=== PATIENT | female | born 1940 | race Caucasian/White ===

== ENCOUNTER 2019-12-27 08:17 | Outpatient (CLI) | payer MEDICARE, SELFPAY ==
[2019-12-27 08:52] LABS: Basophils Percent Auto 0.8 % (0.2-1.2); Eosinophils Absolute Auto 0.1 K/mm3 (0-0.3); Eosinophils Percent Auto 1.5 % (0-4.4); Hematocrit 35.3 % (37.0-47.0); Hemoglobin 11.7 g/dL (12.0-15.0); Immature Granulocyte Absolute 0.01 K/mm3 (0.00-0.031); Immature Granulocyte Percent A 0.3 % (0-0.5); Lymphocytes Percent Auto 35.6 % (18.3-44.2); Mean Corpuscular HGB Conc 33.1 g/dl (32-36); Mean Corpuscular Volume 93.4 fl (80-100); Mean Platelet Volume 9.6 fl (7.4-10.4); Monocytes Absolute Auto 0.2 K/mm3 (0.1-0.6); Monocytes Percent Auto 6.1 % (2.6-8.5); Neutrophils Absolute Auto 2.2 K/mm3 (1.3-6.7); Neutrophils Percent Auto 55.7 % (45.5-73.1); Platelet Count Result 153 k/mm3 (150-375); Red Blood Count 3.78 M/mm3 (4.2-5.4); Red Cell Distribution Width 12.7 % (11.5-14.5); White Blood Count 3.9 K/mm3 (4.5-10.0)
[2019-12-27 09:01] LABS: Hemoglobin A1C 5.3 % (<5.7)
[2019-12-27 09:08] LABS: Blood Urea Nitrogen 13 mg/dL (7-17); Calcium 9.6 mg/dL (8.4-10.2); Carbon Dioxide 30 mmol/L (22-30); Chloride 102 mmol/L (98-107); Cholesterol 188 mg/dL (0-200); Estimated Glomerular Filt Rate > 60; Glucose 94 mg/dL (65-105); HDL Direct 78 mg/dL; Potassium 3.8 mmol/L (3.4-5.0); Sodium 139 mmol/L (137-145); Triglycerides 94 mg/dL (<150)
[2019-12-27 09:19] LABS: LDL Cholesterol Direct 73 mg/dL
[2019-12-27 09:32] LABS: Free T4 Free Thyroxine 1.21 ng/mL (0.78-2.19)
[2019-12-29 22:49] LABS: Homocysteine 9.7 umol/L (<10.4)
== END 2019-12-27 08:18 | disposition home or self-care (01) ==
PROVIDERS: PCP Internal Medicine; Visit Provider Internal Medicine
DX: I10 Essential (primary) hypertension (principal); E03.9 Hypothyroidism, unspecified; Z79.899 Other long term (current) drug therapy
CPT/HCPCS: 36415; 80048; 80061; 82542; 83036; 83090; 84439; 84443; 85025

== ENCOUNTER 2020-02-11 14:08 | Outpatient (CLI) | payer MEDICARE, SELFPAY ==
--- NOTE | ~2020-02-11 | XR_ITS ---
EXAMINATION: XR lumbar spine 2-3V, XR sacroiliac joints min 3V DATE: 02/11/2020 14:41 INDICATION: Left hip pain TECHNIQUE: 1. Anteroposterior and lateral views of the lumbar spine, and cone-down lateral view of the lumbosacr al junction were obtained. 2. AP and left and right oblique views of the sacral iliac joints were obtained. COMPARISON: None. FINDINGS: Lumbar spine: Hypoplastic right-sided riblet at L1. 4 more caudal nonrib-bearing lumbar segments L2-L5. 1-2 mm ante rolisthesis L3 on L4. Vertebral body heights are normal. Mild disc height loss at T12-L1, L1-L2, L3-L 4 and L4-L5. The L5-S1 disc space appears severely narrowed with poorly profiled endplates, possibly fused. Lower lumbar facet osteoarthritis moderate on the right and moderate to severe on the left at L3-L4 and L4-L5. Lung bases are clear. No pleural effusion. Sacroiliac joints: Sacral arches are intact. Bilateral sacroiliac joint spaces are normal with no erosions or subarticul ar sclerosis. Bilateral hip joint spaces are also relatively preserved. Phlebolith in the right hemip khushboo. IMPRESSION: 1. Moderate lumbar spondylosis. 2. Normal bilateral hip and sacroiliac joints. Reviewed, dictated and finalized at location A. IMPRESSION: 1. Moderate lumbar spondylosis. 2. Normal bilateral hip and sacroiliac joints.
== END 2020-02-11 14:09 | disposition home or self-care (01) ==
PROVIDERS: PCP Internal Medicine; Visit Provider Internal Medicine
DX: M47.816 Spondylosis without myelopathy or radiculopathy, lumbar region (principal)
CPT/HCPCS: 72100; 72202

== ENCOUNTER 2020-03-12 11:00 | Outpatient (RCR) | payer MEDICARE, SELFPAY ==
--- NOTE | 2020-02-19 11:34 | PTOPEVAL ---
PHYSICAL THERAPY EVALUATION AND PLAN OF CARE 02-19-2020 The PT evaluation was completed and the plan of treatment is scheduled for 2x/week for 3 weeks. Thank you for referring Jessica Steele to [facility]. Please review, sign, date and return this plan of care [facility]. I agree with and certify that the following plan of care is medically necessary. Referring Physician Date Attending Provider: Emre Garrido MD *PT Outpatient Evaluation Start: 02/19/20 10:39 Document 02/19/20 10:30 HUE (Rec: 02/19/20 11:34 HUE [email or web address]) Outpatient Past Medical History Past Medical History Source of Past Medical History Patient Neurological History Hx Neurological Disorders No Significant History Cardiovascular History Hx Hypertension Yes: meds Respiratory History Hx Respiratory Disorders No Significant History Gastrointestinal History Hx Gastroesophageal Reflux Disease Yes: meds Genitourinary History Hx Genitourinary Disorders No Significant History Musculoskeletal History Hx Arthritis Yes: L knee OA-to see Dr Quinonez in February Hx Back Pain Yes Hx Orthopedic Surgery Yes: L knee arthroscopy Hematological History Hx Hematological Disorders No Significant History Endocrine History Hx Hypothyroidism Yes: meds Hx Systemic Lupus Erythematosus Yes: in remission Reproductive History Hx Hysterectomy Yes Evaluation Information Problem Diagnosis back pain, L hip pain, sacroliliac pain Onset January 05, 2020 Subjective Information increase in pain after Query Text:As Reported By Patient/ increased yard work; sit on Family cushion and scooting along; went to move and onset pain L low back, then OK few days, then L hip started hurting; took steroid pack-- decreased pain but then returned; had spinal injections and lots of therapy at about 42 yr old ; back pain resolved, but always cautious and try not to over do it; Diagnostic Tests X-Rays For This Problem Yes: disc height lumbar spine; moderate-severe OA Prior Level of Function Activity Level (Last 3 Months) 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
--- NOTE | 2020-03-12 11:34 | PTOPEVAL ---
PHYSICAL THERAPY DISCHARGE 03-12-2020 Mrs. Steele has received 7 PT sessions, from February 18 to today, for the diagnosis of L hip and sacralilitis. She has improved with: increased trunk and hip strength; standing posture; pain rating at worst from 5 to 1/10; Oswestry self assessment from 22% to 10% limitation; flexibility of L ant hip/quad, with prone knee flexion from 110' to 130'; education for posture and home exercises. Jessica is motivated and is to continue with the theraband resisted exercises and sitting ball exercises. The goals were achieved, therefore she will be discharged from PT services. Thank you for referring Jessica Steele to [facility]. Please review, sign, date and return this discharge [facility]. I agree with and certify that the following plan of care is medically necessary. Referring Physician Date Attending Provider: Emre Garrido MD *PT Outpatient Discharge Document 03/12/20 10:57 HUE (Rec: 03/12/20 11:25 HUE [email or web address]) Subjective Information Jessica reports: back is better Query Text:As Reported By Patient/ ; am stronger in core and hips Family ; have balance ball at home and doing band exercises; agree to discharge from PT; Oswestry self assessment functional score 10% limitation; Pain Assessment Timing of Pain Assessment Timing of Pain Assessment Assessment Pain Scale Pain Scale Used Numeric (1 - 10) Self Report Pain Assessment Bilateral Back Reported Pain Level 0 Pain Frequency Chronic Other Pain Description uncomfortable&problems getting comfortable to sleep-back, knee,overall hurt Lowest Pain Intensity 0 Greatest Pain Intensity 1 Additional Pain Comments continue to have L knee pain; called dr and going to have knee replacement Pain Score Pain Score 0: Self Report Lower Extremity Range of Motion General Lower Extremity Range of Motion Gross Lower Extremity Range of Motion anterior hip/quad length with Comments prone knee flexion L 130'; Lower Extremity Muscle Strength Testing General Lower Extremity Strength Gross Lower Extremity Strength good stability of trunk with ball exercises: sitting, prone positions, 15- 20 reps each; reviewed HEP; issued green theraband for progression of HEP; Posture Posture Standing Position Posture Evaluation View Posterior Head/C-Spine Posture Forward Head Thoracic Spine Posture Increased Kyphosis Lumbar Spine Posture Flattened Shoulder Posture
== END 2020-03-13 15:11 | disposition home or self-care (01) ==
LOC: ANHPT 11:00
PROVIDERS: PCP Internal Medicine; Visit Provider Internal Medicine
DX: M25.552 Pain in left hip (principal); M46.1 Sacroiliitis, not elsewhere classified
CPT/HCPCS: 97110; 97140; 97161

== ENCOUNTER 2020-03-30 12:22 | Outpatient (CLI) | payer MEDICARE, SELFPAY ==
--- NOTE | ~2020-03-30 | MR_ITS ---
EXAMINATION: MR knee LT wo con DATE: 03/30/2020 13:35 INDICATION: Left knee pain TECHNIQUE: Magnetic resonance imaging (MRI) of the left knee was performed without intravenous contra st. Sequences included coronal PD-weighted FSE, coronal PD-weighted FS FSE, sagittal T2-weighted FSE , sagittal PD-weighted FS FSE and axial PD weighted fat saturated FSE. COMPARISON: Left knee radiographs dated 03/04/2020 FINDINGS: Medial compartment: There is a longitudinal horizontal tear extending to the cephalad articular surface at the small and mildly extruded medial meniscal body. There is a 14 x 7 x 7 mm pyramidal heterotopic ossification rep lacing the meniscal tissue at the lateral side of the small posterior horn which may reflect changes of prior partial meniscectomy. There is extensive cartilage loss which appears full/near full-thickn ess lung much of the anterior two thirds of the medial tibial plateau as well as significant portions of the weightbearing medial femoral condyle. There is scattered mild irregularity to the articular c ortex as well as mild subarticular edema with developing mild subarticular cystic change at the centr al weightbearing medial femoral condyle and anterior aspect of the medial tibial plateau. Moderate si ze marginal osteophytes are present. Lateral compartment: Lateral meniscus is normal. Is partial thickness chondral ulceration and fissuring along the medial s marcelino of the lateral tibial plateau along the shoulder the intercondylar eminence as well as along port ions of the weightbearing lateral femoral condyle. Small marginal osteophytes are present. Patellofemoral compartment: Tarsal thickness chondral ulceration with small central subchondral osteophytes at the cephalad half of the medial trochlea and trochlear groove. Mild partial thickness cartilage loss with chondral surf sun irregularity at the medial patellar facet and apical ridge. Small marginal osteophytes are presen t. Ligaments and tendons: Anterior and posterior cruciate ligaments are normal. The medial collateral ligament and fibular gopi ateral ligament complex are normal. The extensor mechanism is normal. The visualized medial and later al hamstring tendons as well as the iliotibial band are normal. Fluid: Moderate-sized knee joint effusion. There is scattered synovitis at the suprapatellar pouch. Small mu ltiloculated para meniscal cyst along the periphery of the anterior horn of the medial meniscus. No l oose osteochondral bodies identified. Osseous/other: Bone alignment is normal. No fracture or pathologic marrow replacing process. IMPRESSION: 1. Small body and posterior horn of the medial meniscus suggesting prior partial meniscectomy with re sidual longitudinal horizontal tear plane at the medial meniscal body and with heterotopic ossificati on replacing pacing a significant portion of the meniscal tissue at the lateral side of the posterior horn. 2. Tricompartmental osteoarthritis, severe with extensive high-grade chondromalacia in the medial com partment and mild with moderate grade chondromalacia in the lateral compartment and with moderate to high-grade chondromalacia in the patellofemoral compartment. 3. Moderate-sized knee joint effusion. Reviewed, dictated and finalized at location A. IMPRESSION: 1. Small body and posterior horn of the medial meniscus suggesting prior partia l meniscectomy with residual longitudinal horizontal tear plane at the medial m eniscal body and with heterotopic ossification replacing pacing a significant p ortion of the meniscal tissue at the lateral side of the posterior horn. 2. Tricompartmental osteoarthritis, severe with extensive high-grade chondromal acia in the medial compartment and mild with moderate grade chondr
== END 2020-03-30 12:23 | disposition home or self-care (01) ==
PROVIDERS: PCP Internal Medicine; Visit Provider Orthopaedic Surgery
DX: M17.12 Unilateral primary osteoarthritis, left knee (principal); M25.462 Effusion, left knee
CPT/HCPCS: 73721

== ENCOUNTER 2020-05-01 07:42 | Outpatient (CLI) | payer MEDICARE, SELFPAY ==
--- NOTE | ~2020-05-01 | MR_ITS ---
EXAMINATION: MR elbow RT wo con DATE: 05/01/2020 09:05 INDICATION: Right elbow pain TECHNIQUE: Magnetic resonance imaging (MRI) of the right elbow was performed without intravenous cont rast. Sequences included coronal, axial, and sagittal PD-weighted FS FSE and coronal, axial, and sagi ttal PD-weighted FSE. COMPARISON: None FINDINGS: Osseous/other: Normal alignment. Osteoarthritis with nonuniform partial thickness cartilage loss and scattered mild chondral surface irregularity at the right elbow joint. The cartilage loss appears most severe at the ridge along the central aspect of the distal humerus at the junction of the articular surfaces with the ulna and radius with there is mild subarticular edema. Bone marrow signal is otherwise normal. No fracture, osteonecrosis or pathologic marrow replacing process. Tendons: Triceps and brachialis tendons are normal. There is mild feathery edema in the distal triceps muscle which could be related to extravasated joint effusion occurring at the olecranon recess or low-grade muscle strain. Mild to moderate tendinopathy at the distal insertion of the biceps brachii tendon wit hout discrete tear. Mild tendinopathy without discrete tear at the origin of the common flexor tendo n wad. Mild tendinopathy with partial tear at the lateral epicondylar origin of the common extensor t endon wad. This appears to involve up to one third of the cross-section of the extensor tendon wad. Ligaments: The medial collateral ligament complex is normal. Partial tear at the proximal side of the radial col lateral ligament likely also involving the anterior portion of the proximal aspect of the lateral uln ar collateral ligament. Annular ligament remains normal. Cubital tunnel: Cubital tunnel is unremarkable with normal signal and caliber of the ulnar nerve. Fluid: Moderate-sized elbow joint effusion. There is also prominent subcutaneous edema about the elbow prima rily posteriorly. IMPRESSION: 1. Partial tear of the lateral collateral ligament complex including the proximal radial collateral l igament and anterior aspect of the proximal lateral ulnar collateral ligament. 2. Mild tendinopathy and partial tear of the common extensor tendon wad. 3. Feathery muscular edema in the distal triceps muscle belly which is likely related to extravasatio n of fluid from the moderate-sized elbow joint effusion although could not exclude low-grade muscle s train. 4. Additional tendinopathy without discrete tear, mild at the origin of the common flexor tendon wad and mild to moderate at the distal biceps brachii tendon. 5. Mild right elbow osteoarthritis. Reviewed, dictated and finalized at location B. IMPRESSION: 1. Partial tear of the lateral collateral ligament complex including the proxim al radial collateral ligament and anterior aspect of the proximal lateral ulnar collateral ligament. 2. Mild tendinopathy and partial tear of the common extensor tendon wad. 3. Feathery muscular edema in the distal triceps muscle belly which is likely r elated to extravasation of fluid from the moderate-sized elbow joint effusion a lthough could not exclude low-grade muscle strain. 4. Additional tendinopathy without discrete tear, mild at the origin of the com mon flexor tendon wad and mild to moderate at the distal biceps brachii tendon. 5. Mild right elbow osteoarthritis.
== END 2020-05-01 07:43 | disposition home or self-care (01) ==
LOC: ANHIMG 07:44
PROVIDERS: PCP Internal Medicine; Visit Provider Internal Medicine
DX: M19.021 Primary osteoarthritis, right elbow (principal)
CPT/HCPCS: 73221

== ENCOUNTER 2020-06-01 10:00 | Outpatient (RCR) | payer MEDICARE, SELFPAY ==
--- NOTE | 2020-05-11 11:37 | PTOPEVAL ---
Thank you for referring Jessica Steele to [facility].? The patient is scheduled to be seen for therapy? 2 x/week for 3 weeks. Please review, sign, date and return this plan of care BRYAN. I agree with and certify that the following plan of care is medically necessary. Referring Physician Date Admitting Provider: Attending Provider: Emre Garrido MD Referring Provider: *PT Outpatient Evaluation Start: 05/11/20 10:30 Freq: Status: Active Protocol: Document 05/11/20 10:32 TLM (Rec: 05/11/20 11:15 TLM [id number]) Therapy Assessment Status Assessment Status Assessment Status Evaluation Outpatient Past Medical History Past Medical History Source of Past Medical History Recalled from Previous Visit, Confirmed with Patient/Family Neurological History Hx Neurological Disorders No Significant History Cardiovascular History Hx Hypertension Yes: meds Respiratory History Hx Respiratory Disorders No Significant History Gastrointestinal History Hx Gastroesophageal Reflux Disease Yes: meds Genitourinary History Hx Genitourinary Disorders No Significant History Musculoskeletal History Hx Arthritis Yes: L knee OA-to see Dr Quinonez in February Hx Back Pain Yes Hx Orthopedic Surgery Yes: L knee arthroscopy Hematological History Hx Hematological Disorders No Significant History Endocrine History Hx Hypothyroidism Yes: meds Hx Systemic Lupus Erythematosus Yes: in remission Reproductive History Hx Hysterectomy Yes Evaluation Information Problem Diagnosis Partial LCL tear R elbow Additional Evaluation Detail Reports moderate difficulty with opening jars, doing housework, carrying objects and activities that take force through arm. Subjective Information Pt reports she was putting the Query Text:As Reported By Patient/ dishes away when she heard a Family loud snap. Didn't have any pain and didn't know where the snap came from initially. ~ an hour later patient started having R elbow pain with progressive swelling. Was icing multiple times a day for about a week before she called . MRI on 05/01/20 revealed partial tear of R LCL complex including proximal radial and ulnar collateral ligament.
--- NOTE | 2020-06-01 10:23 | PTOPEVAL ---
PHYSICAL THERAPY DISCHARGE NOTE Thank you for referring Jessica Steele to [facility]. Please review, sign, date and return this plan of care BRYAN. I agree with and certify that the following plan of care is medically necessary. Referring Physician Date Attending Provider: Emre Garrido MD Discharge Diagnosis Partial LCL tear R elbow Subjective Information Reports doing very well. ADLs Query Text:As Reported By Patient/ are getting easier and easier. Family Self Report Self Report Pain Level 0 Pain Score Pain Score 0: Self Report Upper Extremity Range of Motion Elbow/Forearm Range of Motion Right Elbow Flexion - Active 140 Elbow Extension - Active -5 Elbow/Forearm Range of Motion Muscle Length Restriction,Pain Limitations Left Elbow Flexion - Active 146 Elbow Extension - Active 0 Wrist Range of Motion Left Reason Not Measured WFL/Right Right Wrist Flexion - Active 60 Wrist Extension - Active 70 Wrist Range of Motion Limitations Muscle Length Restriction,Pain Upper Extremity Muscle Strength Testing General Upper Extremity Strength Gross Upper 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 Elbow/Forearm Right Elbow Flexion Strength 5 Normal Elbow Extension Strength 5 Normal Forearm Pronation Strength 5 Normal Forearm Supination Strength 5 Normal Elbow/Forearm Strength Comments tender at triceps tendon with extension MMT Left Reason Not Measured WFL/Left Wrist Strength Right Wrist Flexion Strength 5 Normal Wrist Extension Strength 5 Normal Wrist Radial Deviation 5 Normal Wrist Ulnar Deviation 5 Normal Palpation Tenderness to palpation at R lateral epicondyle and proximal wrist extensors Extremity Circumference Assessment Circumference Assessment Location Right Body Part Elbow Site Descriptor ([place]) medial epicondyle Circumference (cm) 25 Noninvolved Side Circumference (cm) 24 PT Clinical Summary Ms. Steele has participated in 3 weeks of physical theparpy for right elbow LCL tear. She demonstrates normal to nearly normal ROM of right elbow and demonstrates WNL strength of right UE. She is performing all functional tasks as she normally would an
== END 2020-06-01 15:15 | disposition home or self-care (01) ==
LOC: ANHPT 10:00
PROVIDERS: PCP Internal Medicine; Visit Provider Internal Medicine
DX: I89.0 Lymphedema, not elsewhere classified (principal); M79.604 Pain in right leg; M79.605 Pain in left leg; M25.529 Pain in unspecified elbow; S53.20XD Traumatic rupture of unspecified radial collateral ligament, subsequent encounter; M25.421 Effusion, right elbow
CPT/HCPCS: 97110; 97140; 97161

== ENCOUNTER 2020-06-05 09:57 | Outpatient (CLI) | payer MEDICARE, SELFPAY ==
--- NOTE | ~2020-06-05 | MM_ITS ---
EXAMINATION: MM screening tatum BI w su HISTORY: Screening TECHNIQUE: Craniocaudal and mediolateral oblique 3-D tomosynthesis images were obtained and synthetic 2-D images were generated. CAD analysis was submitted and interpreted. COMPARISON: Comparison to multiple prior studies sequentially, with oldest reviewed study dated 05/16. BREAST PARENCHYMAL COMPOSITION: The breasts are heterogeneously dense, which may obscure small masses . FINDINGS: There is no evidence of suspicious mass, calcification, or architectural distortion to sugg est malignancy in either breast. There has been no suspicious interval change. IMPRESSION: 1. No mammographic evidence of malignancy. 2. Recommend routine screening mammography in one year. BI-RADS Category 1: Negative Reviewed, dictated and finalized at location A.
== END 2020-06-05 09:58 | disposition home or self-care (01) ==
LOC: ANHIMG 10:00
PROVIDERS: PCP Internal Medicine; Visit Provider Internal Medicine
DX: Z12.31 Encounter for screening mammogram for malignant neoplasm of breast (principal)
CPT/HCPCS: 77063; 77067

== ENCOUNTER 2020-06-22 09:59 | Outpatient (CLI) | payer MEDICARE, SELFPAY ==
[2020-06-22 11:30] LABS: Basophils Percent Auto 0.6 % (0.2-1.2); Eosinophils Absolute Auto 0.1 K/mm3 (0-0.3); Hematocrit 37.6 % (37.0-47.0); Hemoglobin 12.5 g/dL (12.0-15.0); Immature Granulocyte Absolute 0.01 K/mm3 (0.00-0.031); Immature Granulocyte Percent A 0.2 % (0-0.5); Lymphocytes Absolute Auto 1.72 K/mm3 (0.9-3.2); Mean Corpuscular HGB Conc 33.2 g/dl (32-36); Mean Corpuscular Hemoglobin 31.5 pg (26-34); Mean Corpuscular Volume 94.7 fl (80-100); Mean Platelet Volume 9.6 fl (7.4-10.4); Monocytes Absolute Auto 0.3 K/mm3 (0.1-0.6); Monocytes Percent Auto 6.5 % (2.6-8.5); Neutrophils Absolute Auto 3.1 K/mm3 (1.3-6.7); Neutrophils Percent Auto 58.7 % (45.5-73.1); Platelet Count Result 180 k/mm3 (150-375); Red Blood Count 3.97 M/mm3 (4.2-5.4); Red Cell Distribution Width 12.7 % (11.5-14.5); White Blood Count 5.2 K/mm3 (4.5-10.0)
[2020-06-22 11:41] LABS: Albumin Level 4.6 g/dL (3.5-5.1)
[2020-06-22 11:42] LABS: Urine Cotinine NEGATIVE
[2020-06-22 11:45] LABS: Anion Gap 7 mmol/L (8-16); Blood Urea Nitrogen 16 mg/dL (7-17); Calcium 9.7 mg/dL (8.4-10.2); Carbon Dioxide 31 mmol/L (22-30); Chloride 102 mmol/L (98-107); Estimated Glomerular Filt Rate > 60; Glucose 101 mg/dL (65-105); Potassium 4.2 mmol/L (3.4-5.0); Sodium 140 mmol/L (137-145)
== END 2020-06-22 10:00 | disposition home or self-care (01) ==
LOC: ANHSURGERY 10:04
PROVIDERS: Anesthesiology; PCP Internal Medicine; Visit Provider Orthopaedic Surgery
DX: M17.12 Unilateral primary osteoarthritis, left knee (principal); I10 Essential (primary) hypertension; Z01.818 Encounter for other preprocedural examination
CPT/HCPCS: 36415; 80048; 80307; 82040; 83036; 85025; 87081

== ENCOUNTER 2020-07-03 00:38 | Outpatient (CLI) | payer MEDICARE, SELFPAY ==
[2020-07-03 20:27] LABS: SARS-CoV-2 RNA PCR Negative
== END 2020-07-03 00:39 | disposition home or self-care (01) ==
LOC: ANHCOVIDDT 00:38
PROVIDERS: PCP Internal Medicine; Visit Provider Orthopaedic Surgery
DX: Z01.812 Encounter for preprocedural laboratory examination (principal); Z20.828 Contact with and (suspected) exposure to other viral communicable diseases
CPT/HCPCS: 87635; C9803; U0003

== ENCOUNTER 2020-07-06 00:58 | Day surgery (SDC) | payer MEDICARE, SELFPAY ==
[2020-06-22 10:10] VITALS: BMI 21.9
[2020-06-22 11:06] VITALS: BP 170/80; PULSE 56; RESP 16; TEMP 36.7; O2SAT 99
[2020-07-06] VITALS (12 sets, daily range): BP systolic 124–185; BP diastolic 56–90; PULSE 55–70; RESP 10–20; TEMP 36.2–36.6; O2SAT 93–100; BMI 21.7
--- NOTE | ~2020-07-06 | XR_ITS ---
EXAMINATION: XR knee LT 2V DATE: 07/06/2020 13:51 INDICATION: Total left knee arthroplasty. Postop. TECHNIQUE: 2 views of left knee were obtained. COMPARISON: Left knee radiographs 03/04/2020 FINDINGS: There is a total left knee arthroplasty with patellar resurfacing in near-anatomic alignmen t. No fracture. There is gas in the soft tissues, consistent with recent surgery. IMPRESSION: 1. Total left knee arthroplasty in near-anatomic alignment. Reviewed, dictated and finalized at location B. GER ENROLLMENT
[2020-07-06] MEDS: LACTATED RINGERS 1,000 ML 30 ML IV CONT ×2 (09:00→13:32)
[2020-07-06] MEDS: ACETAMINOPHEN 500 MG TABLET 1000 MG PO ×2 (09:08→21:19)
[2020-07-06] MEDS: KETOROLAC 15 MG/ML VIAL (*BKC) IV PUSH ×2 (09:10→18:58)
--- NOTE | 2020-07-06 09:25 | WPDANESEPPF ---
Anes - Initial Pre Proc Eval Procedure: Operation Date: 07/06/20 10:30 Proposed Procedures p Left Total Knee Arthroplasty - Obed Quinonez MD Date/Time: 07/06/20 09:25 Surgeon: Obed Quinonez MD Pre Op Diagnosis: Left Knee OA Patient Data Age: 80 Gender: F Height: 1.59 m Weight: 54.9 kg Last Vital Signs Temp 36.7 C 06/22/20 11:06 Pulse 56 L 06/22/20 11:06 Resp 16 06/22/20 11:06 BP 170/80 H 06/22/20 11:06 Pulse Ox 99 06/22/20 11:06 Allergies Allergy/AdvReac Type Severity Reaction Status Date / Time cefdinir AdvReac Mild Nausea Verified 07/06/20 08:44 Home Medications Medication Instructions Recorded Confirmed Type carvedilol 12.5 mg tablet 12.5 mg PO Q12H #180 tablet 01/13/20 07/06/20 Rx aspirin 81 mg tablet,delayed 81 mg PO DAILY 02/11/20 07/06/20 History release hydroxychloroquine 200 mg tablet 200 mg PO QMWF tablet 02/11/20 07/06/20 History hydrochlorothiazide 12.5 mg capsule 12.5 mg PO DAILY #90 cap 02/17/20 07/06/20 Rx calcium citrate 315 mg 1 tablet PO BID 03/04/20 07/06/20 History calcium-vitamin D3 6.25 mcg (250 unit) tablet glucosamine sulfate 1,000 mg 1,000 mg PO BID 03/04/20 07/06/20 History capsule multivitamin 1 tablet PO DAILY 03/04/20 07/06/20 History omega-3 fatty acids 1,000 mg 1,000 mg PO BID 03/04/20 07/06/20 History capsule pantoprazole 40 mg tablet,delayed 40 mg PO QAM #90 tablet 04/27/20 07/06/20 Rx release levothyroxine 100 mcg PO QAM 06/22/20 07/06/20 History Xarelto 10 mg tablet 10 mg PO DAILY #13 tablet NS 06/23/20 06/23/20 Rx Patient hx anesthesia problems: none Family hx anesthesia problems: none PMFSH Past Medical History Medical History BMI 20.0-20.9, adult BMI 21.0-21.9, adult Encounter for routine adult health examination without abnormal findings Follow up Hip pain, left 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 Osteoarthritis of left knee Osteopenia PVCs (premature ventricular contractions) Right elbow pain Right knee DJD Sacroiliitis Surgical History Surgical History H/O knee surgery 2013, Left knee meniscectomy Dr Salinas H/O: hysterectomy Family History Family History Father Hypertension Family history of lung cancer Mother Hypertension Carcinoma of colon Family history of diabetes mellitus in first degree relative Diabetes mellitus Sibling Hypertension Colon polyp Social History Social History Smoking status: Never smoker Second hand tobacco smoke exposure: No Smoking end date: 08/28/74 Additional smoking assessment comments: DENIES ANY FORM OF TOBACCO/NICOTINE USE Alcohol intake: current Drinks per week: 14 Alcohol use details: LIGHT BEER Living arrangements: with family Spiritual care concerns: No Anes - Eval Final PreProcedure Day of Procedure 07/06/20 09:25 Patient weight: normal Heart: regular rate and rhythm Lungs: clear to auscultation and normal air movement Airway: Mallampati scale class II Neurological: alert and oriented Last oral intake: >/= 8 hours ASA classification: III Emergent: no Anesthetic plan: proceed Anesthesia type and monitoring: general LMA Informed Consent: The patient's anesthetic plan and its attendant risks and benefits were discussed with the patient/family/POA. Questions were solicited and answers provided to the satisfaction of the patient/family/POA.
--- NOTE | 2020-07-06 10:19 | WPDHPUPDATE1 ---
History and Physical Update Update Date/Time: 07/06/20 10:19 History and Physical has been reviewed, including an updated exam of the patient. There are NO changes in the patient's condition. Risks, benefits, and alternatives have been discussed and questions answered. Patient agrees to proceed with procedure.
[2020-07-06] MEDS: TRANEXAMIC ACID 1,000MG/ISO100 1,000 MG/100 ML BAG 200 MG IVPB (10:30)
--- NOTE | 2020-07-06 10:47 | WPDANESPNB ---
Anes - Peripheral Nerve Block Date/Time: 07/06/20 10:47 I have discussed with the patient/family/POA the placement of a peripheral nerve block for post-operative pain management, including associated risks, benefits, complications, and side effects. Alternative methods of post-operative analgesia were detailed. Questions were solicited and answers provided to the satisfaction of the patient/family/POA. Time-Out: A pre-procedural Time-Out was completed immediately before starting the procedure and confirmed: Patient Identification, Site, Procedure, Patient Position and the Availability of Requisite Equipment. Clinical Indications: Acute post-operative pain management requested by the operative surgeon. Nerve Block Insertion Note Anes-nerve block: adductor canal left Patient position: supine Skin prep: chlorhexidine Needle: 22 gauge, stimulating, insulated echogenic needle. Needle length: 80 mm Technique: ultrasound Technique comment: in plane Injectate: bupivacaine 0.25% with epi 5 mcg/ml (30cc) Observations: tolerated well Complications: none Procedure start time:: 1035 Procedure end time:: 1040
[2020-07-06] MEDS: ceFAZolin 2 GM/D5W 50 ML 2 GM/50 ML BAG IVPB (10:58)
[2020-07-06] MEDS: SODIUM CHLORIDE 0.9% IV 50 ML, TRANEXAMIC ACID 1,000 MG TOPICAL (11:54)
[2020-07-06] MEDS: GENTAMICIN BONE CEMENT REFOBACIN 1 EACH TOPICAL (12:09)
[2020-07-06] MEDS: ceFAZolin SODIUM 1 GM VIAL IV PUSH (13:21)
--- NOTE | 2020-07-06 13:34 | PM.PROC ---
Procedure Note - Detailed Date of procedure: 07/06/20 Pre-op diagnosis: Left Knee OA Post-op diagnosis: same Procedure performed: Left total knee replacement Description of procedure: The patient was identified and proper site identified. In the preop holding area the anesthesia team performed a left sub sartorial block after which the patient was taken to the operating room and transferred to the OR table positioning supine taking care to pad the torso and extremities. After a spinal anesthetic was administered, a nonsterile tourniquet was placed high on the left thigh. The left lower extremity was prepped and draped in the usual sterile fashion. The extremity was exsanguinated and with the knee flexed tourniquet was inflated to 300 mmHg remaining up for approximately 70 minutes. An anterior midline incision was made and a mid vastus approach was used. Infra and suprapatellar fat pads were excised. Patella was resected leaving 15 mm thickness and prepared for the 31 round three peg component. Using the intramedullary guide the distal femur was cut in the proper orientation for the size 65 femoral component. Using the extramedullary guide the tibia was cut perpendicular to the long axis protecting collateral ligaments and popliteal structures. It was sized to a 67. Flexion and extension gaps were balanced. Trial reduction was undertaken and the weight-bearing line was noted to passed through the center of the joint. Proximal tibia was drilled and punched in the proper orientation for the real component. Trial components were removed. The bone surfaces were washed with pulsatile lavage and dried. The real components were cemented simultaneously. The knee was held in extension and the patella held clamped until the cement had cured. Excess cement was removed from the joint. After trialing it was determined that the 10 mm insert gave full range of motion from 0-120 degrees of flexion and the patella tracked in the femoral groove with no lift-off. After final lavage the joint the real 10 insert was placed and secured with a locking bar. A Betadine and saline wash was placed into the wound and allowed to sit for approximately 3 minutes and then evacuated. Periarticular tissues were infiltrated with 60 cc of the arthroplasty solution. 1 g of tranexamic acid was left in the wound. The extensor mechanism was repaired with #2 Vicryl suture and 0 looped PDS suture. Subcu was reapproximated with three Monocryl and two 0 strata fix with tissue adhesive for the skin. A sterile dressing was applied. She tolerated the procedure well, was awakened and extubated, transferred to the bed and was taken to recovery area in stable condition. There were no known intraoperative complications. Perioperative antibiotics were administered. Anesthesia: regional and spinal Surgeon: Obed Quinonez MD Estimated blood loss (mL): 100 Tourniquet time (min): 70 Drains: No Packing: No Pathology: none sent Complications: No immediate complications Condition: stable Disposition: PACU
--- NOTE | 2020-07-06 14:39 | ADMGEN ---
This patient, Jessica Steele, was admitted to -. Patient/family oriented to hospital policies and general routines including ID bracelet, bed and alarms, visiting hours, pain management, procedures, bathroom and other care routines, personal items, smoking policy, room service/diet, and visiting hours. Information on how to activate the Rapid Response Team has been discussed. Patient/Family are encouraged to report perceived risks to care and to ask questions if they do not understand what they are told or what they should do.
[2020-07-06] MEDS: SODIUM CHLORIDE 0.9% IV 1,000 ML 125 ML IV CONT (15:50)
[2020-07-06] MEDS: oxyCODONE HCL (*CRX) 5 MG TAB IR PO ×2 (18:57→21:19)
[2020-07-06] MEDS: DOCUSATE SODIUM 100 MG CAPSULE PO (18:57)
[2020-07-06] MEDS: carvediloL 12.5 MG TABLET PO (21:19)
[2020-07-07 00:12] VITALS: BP 147/65; PULSE 59; RESP 18; TEMP 36.1; O2SAT 98
[2020-07-07] MEDS: oxyCODONE HCL (*CRX) 5 MG TAB IR PO ×3 (00:12→08:29)
[2020-07-07] MEDS: KETOROLAC 15 MG/ML VIAL (*BKC) IV PUSH (00:12)
[2020-07-07 04:12] VITALS: BP 114/60; PULSE 57; RESP 18; TEMP 36.1; O2SAT 97
[2020-07-07] MEDS: ACETAMINOPHEN 500 MG TABLET 1000 MG PO (04:52)
[2020-07-07 05:51] LABS: Basophils Percent Auto 0.5 % (0.2-1.2); Eosinophils Absolute Auto 0.1 K/mm3 (0-0.3); Eosinophils Percent Auto 1.3 % (0-4.4); Hematocrit 29.6 % (37.0-47.0); Hemoglobin 9.9 g/dL (12.0-15.0); Immature Granulocyte Absolute 0.02 K/mm3 (0.00-0.031); Immature Granulocyte Percent A 0.3 % (0-0.5); Immature Platelet Fraction Pct 3.8 % (0.9-11.2); Lymphocytes Absolute Auto 1.95 K/mm3 (0.9-3.2); Lymphocytes Percent Auto 24.5 % (18.3-44.2); Mean Corpuscular HGB Conc 33.4 g/dl (32-36); Mean Corpuscular Hemoglobin 31.3 pg (26-34); Mean Corpuscular Volume 93.7 fl (80-100); Mean Platelet Volume 10.1 fl (7.4-10.4); Monocytes Absolute Auto 0.6 K/mm3 (0.1-0.6); Monocytes Percent Auto 7.2 % (2.6-8.5); Neutrophils Absolute Auto 5.3 K/mm3 (1.3-6.7); Neutrophils Percent Auto 66.2 % (45.5-73.1); Platelet Count Result 150 k/mm3 (150-375); Red Blood Count 3.16 M/mm3 (4.2-5.4); Red Cell Distribution Width 12.6 % (11.5-14.5)
[2020-07-07] MEDS: LEVOTHYROXINE SODIUM 100 MCG TABLET PO (05:54)
[2020-07-07 06:12] LABS: Anion Gap 3 mmol/L (8-16); Blood Urea Nitrogen 11 mg/dL (7-17); Calcium 8.8 mg/dL (8.4-10.2); Carbon Dioxide 31 mmol/L (22-30); Chloride 103 mmol/L (98-107); Estimated CRCL calculation 37 ml/min; Estimated Glomerular Filt Rate > 60; Glucose 87 mg/dL (65-105); Potassium 3.9 mmol/L (3.4-5.0); Sodium 137 mmol/L (137-145)
--- NOTE | 2020-07-07 07:02 | P.PNAN_ITS ---
Anes - Prog Note Post-Op Date/Time: 07/07/20 07:02 Cardiovascular status: normal Respiratory status: normal Airway patency: baseline Mental status: baseline Post-Op hydration status: normal Vital Signs: Last Vital Signs Temp 36.1 C L 07/07/20 04:12 Pulse 57 L 07/07/20 04:12 Resp 18 07/07/20 04:12 BP 114/60 07/07/20 04:12 Pulse Ox 97 07/07/20 04:12 Pain Score (VAS): 3 I/O: Intake & Output 07/06/20 07/06/20 07/07/20 15:59 23:59 07:59 Intake Total 350 690 240 Output Total 200 1100 Balance 350 490 -860 Laboratory Tests 07/07/20 05:09 07/07/20 05:09 07/06/20 07/07/20 07/07/20 09:04 05:09 05:09 WBC 8.0 RBC 3.16 L Hgb 9.9 L Hct 29.6 L MCV 93.7 MCH 31.3 MCHC 33.4 RDW 12.6 Plt Count 150 MPV 10.1 Immature Gran % (Auto) 0.3 Neut % (Auto) 66.2 Lymph % (Auto) 24.5 Faulk % (Auto) 7.2 Eos % (Auto) 1.3 Baso % (Auto) 0.5 Lymph # (Auto) 1.95 Faulk # (Auto) 0.6 Eos # (Auto) 0.1 Baso # (Auto) 0.0 Abs Immat Gran (auto) 0.02 Absolute Neuts (auto) 5.3 Absolute Nucleated RBC 0.0 Nucleated RBC % 0.0 % Immature Plt Fraction 3.8 Sodium 137 Potassium 3.9 Chloride 103 Carbon Dioxide 31 H Anion Gap 3 L BUN 11 D Creatinine 0.90 Estim Creat Clear Calc 37 Estimated GFR > 60 Glucose 87 Calcium 8.8 Blood Type A Positive Antibody Screen Negative Post-procedural complaints: none Patient Feedback: Patient satisfied with anesthetic care.
--- NOTE | 2020-07-07 07:03 | PM.PNORT ---
Progress Note: A&P Assessment and Plan (1) Status post total left knee replacement: Code(s): Z96.652 - Presence of left artificial knee joint Status: Acute Assessment and Plan: 72-year-old female postop day one left knee replacement doing very well. She will be discharged home today. She be answer outpatient therapy in one week. She has an appointment to see me in two weeks. She was instructed to call with any questions prior to follow-up. Subjective Subjective Date/Time Seen: 07/07/20 07:03 Post Op day: 1 Principal diagnosis: Status post left total knee replacement Interval history: 80-year-old female postop day one left total knee replacement doing very well. She was admitted for postop pain control and to initiate physical therapy. She is doing well and will be discharged home today. Review of Systems Review of Systems: All systems reviewed & are unremarkable except as noted in HPI and below Exam Const: General: cooperative, no acute distress and alert Nutritional Appearance: other Orientation/consciousness: patient oriented x3 Limitations: no limitations HENMT: Head: normal to inspection Ears: hearing grossly normal bilaterally Face and sinus: face symmetric Mouth: Yes moist mucous membranes Teeth and gingiva: fair dentition Eyes: Alignment and Position: alignment normal and position normal Sclera: sclerae normal Neck: Neck: normal visual inspection and nontender Chest: Chest palpation & inspection: normal inspection of the chest Resp: Effort & Inspection: normal respiratory effort and able to speak in complete sentences GI: Inspection: other ( Nondistended, nontender) Skin: General skin exam: normal color Rashes: no rashes Neuro: General: patient oriented x3 Cognition (Neuro): normal cognition Speech: normal speech Gait exam (Neuro): Other gait observations present Motor exam (neuro): 5/5 motor strength present throughout Sensory Exam: normal sensation Extrem: General: normal to inspection and other Other: Exam of the left knee shows that the wound is well apposed and dry. Little to no swelling noted. Range of motion 0-115 degrees of flexion today. Calves negative. Psych: Appearance: grossly normal Mental Status: mental status grossly normal Radiology Reports: Comments: EXAMINATION: XR knee LT 2V DATE: 07/06/2020 13:51 INDICATION: Total left knee arthroplasty. Postop. TECHNIQUE: 2 views of left knee were obtained. COMPARISON: Left knee radiographs 03/04/2020 FINDINGS: There is a total left knee arthroplasty with patellar resurfacing in near-anatomic alignment. No fracture. There is gas in the soft tissues, consistent with recent surgery. IMPRESSION: 1. Total left knee arthroplasty in near-anatomic alignment. Objective Data Vital Signs Vital Signs: Vital Signs - 24 hr 07/06/20 08:50 07/06/20 13:35 07/06/20 13:50 Temperature 97.2 F L 97.8 F Pulse Rate 65 66 63 Respiratory Rate 16 10 L 12 Blood Pressure 185/90 H 124/75 142/56 H Pulse Oximetry 100 97 96 07/06/20 14:05 07/06/20 14:23 07/06/20 14:45 Temperature 97.1 F L Pulse Rate 62 63 59 L Respiratory Rate 12 12 16 Blood Pressure 157/74 H 157/72 H 151/73 H Pulse Oximetry 93 94 98 07/06/20 15:00 07/06/20 15:45 07/06/20 16:32 Temperature 97.7 F 97.3 F L 97.9 F Pulse Rate 55 L 66 63 Respiratory Rate 16 16 18 Blood Pressure 160/70 H 155/79 H 173/77 H Pulse Oximetry 98 97 100 07/06/20 20:00 07/06/20 20:12 07/06/20 21:19 Temperature 97.1 F L Pulse Rate 70 63 70 Respiratory Rate 20 20 Blood Pressure 146/77 H Pulse Oximetry 98 98 07/07/20 00:12 07/07/20 04:12 Temperature 97 F L 97 F L Pulse Rate 59 L 57 L Respiratory Rate 18 18 Blood Pressure 147/65 H 114/60 Pulse Oximetry 98 97 Intake/Output Intake/Output: Intake & Output 07/04/20 07/05/20 07/06/20 07/07/20 23:59 23:59 23:59 23:59 Intake Total 1040 / 1040 240 / 240 Output Total 200 / 200 1100 / 1100 Balance
--- NOTE | 2020-07-07 07:06 | PM.DS ---
DS: Admitting Diagnosis Admitting Diagnosis Admitting Diagnosis: Left Knee OA DS: Discharge Diagnosis Discharge Diagnosis (1) Status post total left knee replacement: Code(s): Z96.652 - Presence of left artificial knee joint Status: Acute Assessment and Plan: 80-year-old female postop day one left knee replacement will be discharged home today. DS: Summary Hospital Course Reason for hospitalization: Postop pain control and to initiate therapy following left knee replacement Hospital Course: following the patient's surgery she was admitted to the floor. She has no issues and will be discharged after therapy today. Status at Discharge Functional status at discharge: uses cane/walker Overall status at discharge: patient is not back to baseline Time Spent with Patient Time attestation: Total time spent providing and/or coordinating discharge services: Exam Const: General: cooperative, no acute distress and alert Nutritional Appearance: other Orientation/consciousness: patient oriented x3 Limitations: no limitations HENMT: Head: normal to inspection Ears: hearing grossly normal bilaterally Face and sinus: face symmetric Mouth: Yes moist mucous membranes Teeth and gingiva: fair dentition Eyes: Alignment and Position: alignment normal and position normal Sclera: sclerae normal Neck: Neck: normal visual inspection and nontender Chest: Chest palpation & inspection: normal inspection of the chest Resp: Effort & Inspection: normal respiratory effort and able to speak in complete sentences GI: Inspection: other ( Nondistended, nontender) Skin: General skin exam: normal color Rashes: no rashes Neuro: General: patient oriented x3 Cognition (Neuro): normal cognition Speech: normal speech Gait exam (Neuro): Other gait observations present Motor exam (neuro): 5/5 motor strength present throughout Sensory Exam: normal sensation Extrem: General: normal to inspection and other Other: Exam of the left knee shows that the wound is well apposed and dry. Little to no swelling noted. Range of motion 0-115 degrees of flexion today. Calves negative. Psych: Appearance: grossly normal Mental Status: mental status grossly normal DS: Data Data Completed and Pending Labs on day of discharge: Labs from last 24 hours 07/07/20 07/07/20 07/06/20 05:09 05:09 09:04 WBC 8.0 RBC 3.16 L Hgb 9.9 L Hct 29.6 L MCV 93.7 MCH 31.3 MCHC 33.4 RDW 12.6 Plt Count 150 MPV 10.1 Immature Gran % (Auto) 0.3 Neut % (Auto) 66.2 Lymph % (Auto) 24.5 [place] % (Auto) 7.2 Eos % (Auto) 1.3 Baso % (Auto) 0.5 Lymph # (Auto) 1.95 [place] # (Auto) 0.6 Eos # (Auto) 0.1 Baso # (Auto) 0.0 Abs Immat Gran (auto) 0.02 Absolute Neuts (auto) 5.3 Absolute Nucleated RBC 0.0 Nucleated RBC % 0.0 % Immature Plt Fraction 3.8 Sodium 137 Potassium 3.9 Chloride 103 Carbon Dioxide 31 H Anion Gap 3 L BUN 11 D Creatinine 0.90 Estim Creat Clear Calc 37 Estimated GFR > 60 Glucose 87 Calcium 8.8 Blood Type A Positive Antibody Screen Negative Discharge Plan Discharge Patient Disposition: Home, Self-Care Discharge Instructions: 3 times daily for 20 minutes each time, reclining in bed with ice packs over the incision and a pillow underneath the affected calf. Your wound is glued so it is okay to get into the shower and get the wound wet. Be sure to read through all the information that came from a my office and the hospital. Most of the answer was you will need can be found that material. Call the office with any questions that you cannot find answers to, or concerns you may have. After the Xarelto is completed, start taking one coated 81 mg aspirin daily . Please call [facility] at as soon as possible to [] follow-up appointment to be seen in [] weeks. Also, call the office with any orthopedic/bowser
[2020-07-07 08:23] VITALS: PULSE 64
[2020-07-07] MEDS: DOCUSATE SODIUM 100 MG CAPSULE PO (08:23)
[2020-07-07] MEDS: carvediloL 12.5 MG TABLET PO (08:23)
[2020-07-07] MEDS: RIVAROXABAN 10 MG TABLET PO (08:23)
[2020-07-07] MEDS: MULTIVITAMINS THERAPEUTIC TAB (*BKC) 1 TABLET PO (08:23)
[2020-07-07] MEDS: hydroCHLOROthiazide 12.5 MG CAPSULE PO (08:25)
[2020-07-07 08:35] VITALS: PULSE 64; RESP 18; O2SAT 97
[2020-07-07 10:00] VITALS: BP 143/59; PULSE 60; RESP 14; TEMP 36.4; O2SAT 99
[2020-07-07] MEDS: PANTOPRAZOLE 40 MG TABLET PO (10:14)
== END 2020-07-07 11:15 | disposition home or self-care (01) ==
LOC: ANHSURGERY 08:34 → ANH2MED 14:43
PROVIDERS: PCP Internal Medicine; Visit Provider Orthopaedic Surgery
PROC: (CPT 27447; principal; 2020-07-06 10:30)
DX: M17.12 Unilateral primary osteoarthritis, left knee (principal); G89.18 Other acute postprocedural pain; I10 Essential (primary) hypertension; K21.9 Gastro-esophageal reflux disease without esophagitis; E03.9 Hypothyroidism, unspecified; I49.3 Ventricular premature depolarization; M32.9 Systemic lupus erythematosus, unspecified; Z79.82 Long term (current) use of aspirin; Z79.899 Other long term (current) drug therapy; Z79.01 Long term (current) use of anticoagulants
CPT/HCPCS: 64447; 27447; 36415; 73560; 80048; 85025; 85055; 86850; 86900; 86901; 97110; 97161; 97165; A9270; C1713; C1776; J0690; J1885; J3010; J7030; J7120

== ENCOUNTER 2020-09-30 12:30 | Outpatient (RCR) | payer MEDICARE, SELFPAY ==
--- NOTE | 2020-07-14 15:21 | PTOPEVAL ---
PHYSICAL THERAPY EVALUATION AND PLAN OF CARE Thank you for referring Jessica Steele to [facility].? The patient is scheduled to be seen for therapy? 2-3x/week for 4 weeks. Please review, sign, date and return this plan of care BRYAN. I agree with and certify that the following plan of care is medically necessary. Referring Physician Date Attending Provider: Obed Quinonez MD Evaluation Outpatient Past Medical History Neurological History Hx Neurological Disorders No Significant History Cardiovascular History Hx Hypertension Yes: on meds Respiratory History Hx Respiratory Disorders No Significant History Gastrointestinal History Hx Gastroesophageal Reflux Disease Yes: on Protonix Genitourinary History Hx Genitourinary Disorders No Significant History Musculoskeletal History Hx Joint Replacement Yes: left TKA 07-06-20 Hx Orthopedic Surgery Yes: L knee arthroscopy 2012 Hematological History Hx Hematological Disorders No Significant History Endocrine History Hx Hypothyroidism Yes Hx Systemic Lupus Erythematosus Yes: in remission HEENT History Hx Cataracts Yes: BILAT REMOVED Hx Deviated Septum Yes: SEPTOPLASTY Hx Other HEENT Disorders Yes: GLASSES Diagnosis left TKA Onset 07/06/2020 Subjective Information Jessica is 1 week s/p left TKA. Query Text:As Reported By Patient/ She did initially get sick Family from the pain medication. She now only takes oxycodone as needed instead of scheduled. Self Report Pain Assessment Left Knee(s) Reported Pain Level 8 Greatest Pain Intensity 10 Pain Aggravating Factors Walking,Weight Bearing/ Standing Pain Behaviors None Interventions Used Interventions Used By Clinicians Exercise,Manual Therapy Techniques Pain Relief Interventions Used By Elevation,Ice,Medication Patient Lower Extremity Range of Motion Knee Range of Motion Left Knee Flexion Range of Motion - Active 62 Knee Extension Range of Motion - Active -10 Query Text: Lower Extremity Muscle Strength Testing Knee Strength Left Knee Flexion Strength 3- Fair - Knee Extension Strength 2- Poor - Palpation Assessment Palpation Palpation significant edema noted under patella; very mild warmth noted; incision healing well Extremity Circumference Assessment Circumference Assessment Location Left Body Part Knee Site Descriptor ([place]) suprapatellar Circumference (cm) 40 Noninvolved Side Circumference (cm) 35 Balance Assessment 5 Time Sit to Stand
--- NOTE | 2020-08-06 13:26 | PTOPEVAL ---
PHYSICAL THERAPY PROGRESS REPORT AND PLAN OF CARE UPDATE Thank you for referring Jessica Steele to [facility] [place].? The patient is scheduled to be seen for therapy? 2x/week for 3-4 weeks. Please review, sign, date and return this plan of care BRYAN. I agree with and certify that the following plan of care is medically necessary. Referring Physician Date Attending Provider: Obed Quinonez MD Progress Diagnosis left TKA Onset 07/06/2020 Subjective Information Jessica is 4 week s/p left TKA. Query Text:As Reported By Patient/ She has had some difficulty Family managing pain in the leg. She does have better days with medication. Uses a straight cane when out of the home, but otherwise does not use a device. Reports that pain continues to be a persistent problem and points to medial joint line of the knee. She also states that walking for longer than several miniutes and trying to bend the knee increase pain symptoms from a 2/10 to a 7/10. Self Report Pain Assessment Left Knee(s) Reported Pain Level 2 Pain Description Aching,Dull,Shooting Greatest Pain Intensity 7 Pain Aggravating Factors Walking,Weight Bearing/ Standing Pain Behaviors None Pain Score Pain Score 2: Self Report Interventions Used Interventions Used By Clinicians Exercise,Ice,Manual Therapy Techniques Pain Relief Interventions Used By Elevation,Ice,Medication Patient Other Alleviating Interventions states she took both Tylenol and stronger medication today Knee Range of Motion left: flexion: 100deg extension: -8deg Knee Range of Motion Limitations Edema Knee Strength Left Knee Flexion Strength 5 Normal Knee Extension Strength 4- Good - Palpation Assessment Palpation Palpation incision healed well; mild edema noted at popliteal fossa and lower leg, non-pitting; no warmth noted Extremity Circumference Assessment Circumference Assessment Location Left Body Part Knee Site Descriptor ([place]) suprapatellar Circumference (cm) 38 Noninvolved Side Circumference (cm) 35 Balance Assessment Time Up Go (TUG) Timed Up and Go Test (TUG) (S
--- NOTE | 2020-08-26 13:04 | PTOPEVAL ---
PHYSICAL THERAPY PROGRESS REPORT Thank you for referring Jessica Steele to [facility].? The patient is scheduled to be seen for therapy? 2x/week for 3 weeks. Please review, sign, date and return this plan of care BRYAN. I agree with and certify that the following plan of care is medically necessary. Referring Physician Date Attending Provider: Obed Quinonez MD Assessment Status Progress Diagnosis left TKA Onset 07/06/2020 Subjective Information Jessica is 7 week s/p left TKA. Query Text:As Reported By Patient/ She reports pain with Family increased activity that will reach a 5/10. Self Report Pain Assessment Left Knee(s) Reported Pain Level 4 Pain Description Aching,Dull,Shooting Pain Frequency Acute Pain Aggravating Factors Walking,Weight Bearing/ Standing Pain Behaviors None Pain Score Pain Score 4: Self Report Interventions Used Interventions Used By Clinicians Education,Exercise,Ice Pain Relief Interventions Used By Elevation,Exercise,Ice, Patient Inactivity/Rest Other Alleviating Interventions states she took both Tylenol and stronger medication today Lower Extremity Range of Motion Knee Range of Motion Left Knee Flexion Range of Motion - Active 108 Knee Extension Range of Motion - Active -8 Query Text: Knee Range of Motion Limitations Edema Lower Extremity Muscle Strength Testing Knee Strength Left Knee Flexion Strength 5 Normal Knee Extension Strength 4+ Good + Palpation Assessment Palpation Palpation . Balance Assessment 5 Time Sit to Stand Time in Seconds 11.8 5 Time Sit to Stand Comments no arm rests today Query Text:Normative Data: If Greater 1month ago with arm rests = 13 Than 15 Seconds, 74% Increase Risk for .5seconds Recurrent Falls Bike Exercise Bike Extremity Bilateral Lower Type of Bike Recumbent Bike Resistance 2 Duration (minutes) 6 Exercise Comments cues to prevent hip hiking while flexing left knee Manual Therapy Manual Therapy Side Left Manual Therapy Location Knee Patient Position Supine Manual Therapy Treatment Passive Stretching,Soft Tissue Mobilization Treatment Comments -myofascial release to knee Query Text:Include Technique and and cortes region Result of Technique -skin rolling -strain counter strain lower leg
--- NOTE | 2020-09-16 14:18 | PTOPEVAL ---
PHYSICAL THERAPY PROGRESS REPORT Thank you for referring Jessica Steele to [facility].? The patient is scheduled to be seen for therapy? 3x/week for 2 weeks. Please review, sign, date and return this plan of care BRYAN. I agree with and certify that the following plan of care is medically necessary. Referring Physician Date Attending Provider: Obed Quinonez MD Progress Diagnosis left TKA Onset 07/06/2020 Subjective Information Jessica is 10 week s/p left TKA. Query Text:As Reported By Patient/ Continues to c/o stiffness Family and pain in the medial aspect of the knee. She feels the range of motion is coming along but it will just take time. Self Report Pain Assessment Left Knee(s) Reported Pain Level 2 Pain Description Aching,Dull Pain Frequency Acute Pain Aggravating Factors Walking,Weight Bearing/ Standing Pain Behaviors None Pain Score Pain Score 2: Self Report Interventions Used Interventions Used By Clinicians Education,Exercise Pain Relief Interventions Used By Elevation,Exercise,Ice, Patient Inactivity/Rest Other Alleviating Interventions . Lower Extremity Range of Motion Knee Range of Motion Left Knee Flexion Range of Motion - Active 108 Knee Flexion Range of Motion - Passive 112 Knee Extension Range of Motion - Active -6 Query Text: Knee Range of Motion Limitations Edema Lower Extremity Muscle Strength Testing Knee Strength Left Knee Flexion Strength 5 Normal Knee Extension Strength 5 Normal Palpation hypersensitive to light touch over medial aspect of left knee joint line Manual Therapy Side Left Manual Therapy Location LE Patient Position Supine Manual Therapy Treatment Soft Tissue Mobilization Movement Findings Hypersensitivity Treatment Comments gr 4 patellar mobilizations, Query Text:Include Technique and specifically to distal Result of Technique patellar end: medial-lateral, superior-inferior -anterior-postirior tibial on femur mobilizations -wedge mobilization for left knee flexion gr 3 -MFR to popliteal fossa to reduce remaining bruising; instructed in heating pad to back of knee to ass
--- NOTE | 2020-09-30 13:10 | PTOPEVAL ---
PHYSICAL THERAPY DISCHARGE NOTE Thank you for referring Jessica Steele to [facility]. Please review, sign, date and return this plan of care BRYAN. I agree with and certify that the following plan of care is medically necessary. Referring Physician Date Attending Provider: Obed Quinonez MD Discharge Diagnosis left TKA Onset 07/06/2020 Subjective Information Jessica is 12 week s/p left TKA. Query Text:As Reported By Patient/ Reports some pain every now Family and then. States that the swelling is really good in the morning and increases throughout the day. Self Report Pain Assessment Left Knee(s) Reported Pain Level 0 Pain Description Tightness Pain Frequency Acute Pain Aggravating Factors Walking,Weight Bearing/ Standing Pain Behaviors None Interventions Used Interventions Used By Clinicians Exercise Pain Relief Interventions Used By Elevation,Exercise,Ice, Patient Inactivity/Rest Other Alleviating Interventions . Lower Extremity Range of Motion Knee Range of Motion Left Knee Flexion Range of Motion - Active 112 Knee Extension Range of Motion - Active -3 Query Text: Knee Range of Motion Limitations Edema Lower Extremity Muscle Strength Testing Knee Strength Left Knee Flexion Strength 5 Normal Knee Extension Strength 5 Normal Extremity Circumference Assessment Circumference Assessment Location Left Body Part Knee Site Descriptor ([place]) suprapatellar Circumference (cm) 37 Noninvolved Side Circumference (cm) 35 Balance Assessment [place] Balance Assessment 56/56 POINTS Gait Assessment 6 Minute Walk Total Distance (feet) 1,573 6 Minute Walk Gait Speed Score (feet/ 4.36 second) 6 Minute Gait Comments reports a mild increase in symptoms after test Rehab Teaching Topic Components Body Mechanics,Exercise,Home Program As Pertains To Body Mechanics,Rest Periods, Technique Recipient Patient Learning Preferences Demonstration,Discussion,One- on-One Instruction Barriers to Learning None Readiness to Learn Excellent Response Returns Demonstration, Verbalizes Understanding Method Handout Additional Rehab Teaching Comments reviewed and updated HEP for continud streng
== END 2020-10-01 12:40 | disposition home or self-care (01) ==
LOC: ANHPT 12:30
PROVIDERS: PCP Internal Medicine; Visit Provider Orthopaedic Surgery
DX: M17.12 Unilateral primary osteoarthritis, left knee (principal); Z96.659 Presence of unspecified artificial knee joint
CPT/HCPCS: 29581; 97014; 97016; 97110; 97116; 97140; 97161; G0283

== ENCOUNTER 2020-10-21 06:55 | Outpatient (CLI) | payer MEDICARE, SELFPAY ==
[2020-10-21 07:37] LABS: Basophils Absolute Auto 0.1 K/mm3 (0.0-0.1); Basophils Percent Auto 1.2 % (0.2-1.2); Eosinophils Absolute Auto 0.1 K/mm3 (0-0.3); Eosinophils Percent Auto 1.9 % (0-4.4); Hematocrit 35.8 % (37.0-47.0); Immature Granulocyte Absolute 0.01 K/mm3 (0.00-0.031); Immature Granulocyte Percent A 0.2 % (0-0.5); Lymphocytes Absolute Auto 1.18 K/mm3 (0.9-3.2); Lymphocytes Percent Auto 27.6 % (18.3-44.2); Mean Corpuscular HGB Conc 33.5 g/dl (32-36); Mean Corpuscular Hemoglobin 31.3 pg (26-34); Mean Corpuscular Volume 93.2 fl (80-100); Mean Platelet Volume 9.5 fl (7.4-10.4); Monocytes Absolute Auto 0.3 K/mm3 (0.1-0.6); Monocytes Percent Auto 7.3 % (2.6-8.5); Neutrophils Absolute Auto 2.6 K/mm3 (1.3-6.7); Neutrophils Percent Auto 61.8 % (45.5-73.1); Platelet Count Result 150 k/mm3 (150-375); Red Blood Count 3.84 M/mm3 (4.2-5.4); Red Cell Distribution Width 12.7 % (11.5-14.5); White Blood Count 4.3 K/mm3 (4.5-10.0)
[2020-10-21 07:44] LABS: Add Urine Microscopic? YES; Appearance Urine Clear (Clear); Bacteria Urine Trace /hpf; Bilirubin Urine Negative (Negative); Blood Urine 1+ (Negative); Color Urine Straw (Yellow); Glucose Urine UA Negative (Negative); Ketones Urine Negative (Negative); Leukocyte Esterase Ur 3+ LEU/UL (NEGATIVE); Mucus Urine Rare /lpf; Nitrate Urine Negative (Negative); Protein Urine Negative (Negative); Squamous Epithelial Cell Urine Rare /hpf (Few); Urobilinogen Urine Negative mg/dL (<2.0); WBC Urine 21-30 /hpf (0-3)
[2020-10-21 07:45] LABS: Hemoglobin A1C 5.1 % (<5.7)
[2020-10-21 07:49] LABS: Alanine Aminotransferase 13 U/L (4-35); Albumin Level 4.3 g/dL (3.5-5.1); Alkaline Phosphatase 37 U/L (38-126); Anion Gap 4 mmol/L (8-16); Aspartate Amino Transferase 21 U/L (14-36); Bilirubin,Total 0.4 mg/dL (0.2-1.3); Blood Urea Nitrogen 15 mg/dL (7-17); Calcium 9.9 mg/dL (8.4-10.2); Carbon Dioxide 32 mmol/L (22-30); Chloride 99 mmol/L (98-107); Cholesterol 172 mg/dL (0-200); Estimated Glomerular Filt Rate > 60; Glucose 97 mg/dL (65-105); HDL Direct 102 mg/dL; Sodium 135 mmol/L (137-145); Triglycerides 78 mg/dL (<150)
[2020-10-21 08:00] LABS: LDL Cholesterol Direct 45 mg/dL
[2020-10-21 09:44] LABS: Free T4 Free Thyroxine 1.15 ng/mL (0.78-2.19)
== END 2020-10-21 06:56 | disposition home or self-care (01) ==
PROVIDERS: PCP Internal Medicine; Visit Provider Internal Medicine
DX: E03.9 Hypothyroidism, unspecified (principal); E78.2 Mixed hyperlipidemia; Z83.3 Family history of diabetes mellitus; M32.9 Systemic lupus erythematosus, unspecified; Z79.899 Other long term (current) drug therapy; R82.90 Unspecified abnormal findings in urine
CPT/HCPCS: 36415; 80053; 80061; 81001; 83036; 84439; 84443; 85025; 87086; 87088

== ENCOUNTER 2020-10-27 13:43 | Outpatient (CLI) | payer MEDICARE, SELFPAY ==
--- NOTE | ~2020-10-27 | CT_ITS ---
EXAMINATION: CT abdomen pelvis wo/w con EXAM DATE: 10/27/2020 14:22 INDICATION: R31.9 - Hematuria, unspecified. TECHNIQUE: Spiral CT of the abdomen and pelvis was performed without contrast. The patient was then injected with small bolus intravenous Omnipaque 350, followed by delay of approximately 10 minutes to allow collecting system to opacify. A post contrast scan abdomen and pelvis was performed during inj ection of remaining contrast. A total of 130 cc intravenous contrast was administered. The dose-nahum th product (DLP) for this examination was 419.72 mGy-cm. The exposure was tailored according to liss ent size (auto mA exposure control), and iterative reconstruction (ASIR) was used as additional dose reduction technique. Comparison is made to prior examination from 12/11/2009. FINDINGS: There is no hydronephrosis or nephrolithiasis. The kidneys enhance symmetrically. There a re no suspicious renal lesions. The calyces and opacified portions of ureters are unremarkable, with out filling defects or focal suspicious strictures. The bladder is unremarkable. The uterus is not identified and has likely been surgically resected. The liver, spleen, adrenal glands and pancreas are unremarkable. Gallbladder is unremarkable. No bi liary obstruction. There is no retroperitoneal or pelvic lymphadenopathy. There is mild to moderate sigmoid colonic diverticulosis. There is no adjacent inflammatory change t o suggest diverticulitis. The stomach and small bowel are unremarkable. There is expected amount of colonic stool. No free intraperitoneal gas. The heart is normal in size. There are no pericardia l or pleural effusions. The lung bases are unremarkable. There are mild bony degenerative changes. No suspicious bone lesions. IMPRESSION: 1. No suspicious genitourinary findings. 2. Mild to moderate sigmoid diverticulosis. Reviewed, dictated and finalized at location A. D EXAMINER
== END 2020-10-27 13:44 | disposition home or self-care (01) ==
PROVIDERS: PCP Internal Medicine; Visit Provider Internal Medicine
DX: R31.9 Hematuria, unspecified (principal); K57.30 Diverticulosis of large intestine without perforation or abscess without bleeding
CPT/HCPCS: 74178; Q9967

== ENCOUNTER 2021-03-03 07:01 | Outpatient (CLI) | payer MEDICARE, SELFPAY ==
[2021-03-03 07:59] LABS: Alanine Aminotransferase 11 U/L (4-35); Albumin Level 4.2 g/dL (3.5-5.1); Alkaline Phosphatase 40 U/L (38-126); Anion Gap 8 mmol/L (8-16); Aspartate Amino Transferase 22 U/L (14-36); Bilirubin,Total 0.5 mg/dL (0.2-1.3); Blood Urea Nitrogen 15 mg/dL (7-17); Calcium 9.7 mg/dL (8.4-10.2); Carbon Dioxide 29 mmol/L (22-30); Chloride 101 mmol/L (98-107); Cholesterol 167 mg/dL (0-200); Estimated Glomerular Filt Rate > 60; Glucose 97 mg/dL (65-105); HDL Direct 86 mg/dL; Potassium 3.6 mmol/L (3.4-5.0); Sodium 138 mmol/L (137-145); Triglycerides 82 mg/dL (<150)
[2021-03-03 08:11] LABS: LDL Cholesterol Direct 49 mg/dL
[2021-03-03 08:29] LABS: Thyroid Stimulating Hormone 0.104 uIU/mL (0.465-4.680)
[2021-03-03 08:44] LABS: Free T4 Free Thyroxine 1.55 ng/mL (0.78-2.19)
== END 2021-03-03 07:02 | disposition home or self-care (01) ==
LOC: ANHLAB 07:05
PROVIDERS: PCP Internal Medicine; Visit Provider Internal Medicine
DX: I10 Essential (primary) hypertension (principal); E03.9 Hypothyroidism, unspecified; E78.2 Mixed hyperlipidemia
CPT/HCPCS: 36415; 80053; 80061; 84439; 84443

== ENCOUNTER 2021-06-16 12:01 | Outpatient (CLI) | payer MEDICARE, SELFPAY ==
--- NOTE | ~2021-06-16 | MM_ITS ---
EXAMINATION: MM screening tatum BI w su HISTORY: Screening mammogram TECHNIQUE: Craniocaudal and mediolateral oblique 3-D tomosynthesis images were obtained and synthetic 2-D images were generated. CAD analysis was submitted and interpreted. COMPARISON: 06/05/2020, 06/03/2019, 06/16/2018 bilateral digital screening mammogram examinations BREAST PARENCHYMAL COMPOSITION: The breasts are heterogeneously dense, which may obscure small masses . FINDINGS: There is no evidence of suspicious mass, calcification, or architectural distortion to sugg est malignancy in either breast. There has been no suspicious interval change. IMPRESSION: 1. No mammographic evidence of malignancy. 2. Recommend routine screening mammography in one year. BI-RADS Category 1: Negative Reviewed, dictated and finalized at location A.
== END 2021-06-16 12:02 | disposition home or self-care (01) ==
LOC: ANHIMG 12:05
PROVIDERS: PCP Internal Medicine; Visit Provider Internal Medicine
DX: Z12.31 Encounter for screening mammogram for malignant neoplasm of breast (principal)
CPT/HCPCS: 77063; 77067

== ENCOUNTER 2021-07-12 09:05 | Outpatient (CLI) | payer MEDICARE, SELFPAY ==
[2021-07-12 09:50] LABS: Basophils Percent Auto 0.7 % (0.2-1.2); Eosinophils Percent Auto 0.9 % (0-4.4); Hematocrit 37.1 % (37.0-47.0); Hemoglobin 12.5 g/dL (12.0-15.0); Immature Granulocyte Absolute 0.01 K/mm3 (0.00-0.031); Immature Granulocyte Percent A 0.2 % (0-0.5); Lymphocytes Percent Auto 25.9 % (18.3-44.2); Mean Corpuscular HGB Conc 33.7 g/dl (32-36); Mean Corpuscular Hemoglobin 32.1 pg (26-34); Mean Corpuscular Volume 95.4 fl (80-100); Mean Platelet Volume 9.5 fl (7.4-10.4); Monocytes Absolute Auto 0.3 K/mm3 (0.1-0.6); Monocytes Percent Auto 6.6 % (2.6-8.5); Neutrophils Absolute Auto 2.8 K/mm3 (1.3-6.7); Neutrophils Percent Auto 65.7 % (45.5-73.1); Platelet Count Result 174 k/mm3 (150-375); Red Blood Count 3.89 M/mm3 (4.2-5.4); Red Cell Distribution Width 12.8 % (11.5-14.5); White Blood Count 4.3 K/mm3 (4.5-10.0)
[2021-07-12 10:10] LABS: Alanine Aminotransferase 15 U/L (4-35); Albumin Level 4.5 g/dL (3.5-5.1); Alkaline Phosphatase 44 U/L (38-126); Anion Gap 8 mmol/L (8-16); Aspartate Amino Transferase 23 U/L (14-36); Bilirubin,Total 0.6 mg/dL (0.2-1.3); Blood Urea Nitrogen 14 mg/dL (7-17); Calcium 9.9 mg/dL (8.4-10.2); Carbon Dioxide 28 mmol/L (22-30); Chloride 101 mmol/L (98-107); Cholesterol 190 mg/dL (0-200); Estimated Glomerular Filt Rate > 60; Glucose 102 mg/dL (65-110); HDL Direct 102 mg/dL; Sodium 137 mmol/L (137-145); Triglycerides 71 mg/dL (<150)
[2021-07-12 10:16] LABS: CRP < 0.5 mg/dL (<1.0)
[2021-07-12 10:22] LABS: LDL Cholesterol Direct 64 mg/dL
[2021-07-12 10:25] LABS: Free T4 Free Thyroxine 1.47 ng/mL (0.78-2.19); Vitamin D 25 Hydroxy 44.8 ng/mL
[2021-07-12 10:41] LABS: Thyroid Stimulating Hormone 0.545 uIU/mL (0.465-4.680)
[2021-07-12 14:27] LABS: Erythrocyte Sedimentation Rate 14 mm/hr (0-20)
== END 2021-07-12 09:06 | disposition home or self-care (01) ==
PROVIDERS: PCP Internal Medicine; Referring Provider Orthopaedic Surgery; Visit Provider Internal Medicine
DX: M17.0 Bilateral primary osteoarthritis of knee (principal); M32.9 Systemic lupus erythematosus, unspecified; E78.2 Mixed hyperlipidemia; I10 Essential (primary) hypertension; E03.9 Hypothyroidism, unspecified; E55.9 Vitamin D deficiency, unspecified
CPT/HCPCS: 36415; 80053; 80061; 82306; 84439; 84443; 85025; 85652; 86140

== ENCOUNTER 2021-11-16 08:32 | Outpatient (CLI) | payer MEDICARE, SELFPAY ==
[2021-11-16 09:27] LABS: Basophils Percent Auto 0.5 % (0.2-1.2); Eosinophils Absolute Auto 0.1 K/mm3 (0-0.3); Eosinophils Percent Auto 1.8 % (0-4.4); Hematocrit 36.1 % (37.0-47.0); Lymphocytes Absolute Auto 1.36 K/mm3 (0.9-3.2); Mean Corpuscular HGB Conc 33.2 g/dl (32-36); Mean Corpuscular Hemoglobin 31.5 pg (26-34); Mean Corpuscular Volume 94.8 fl (80-100); Mean Platelet Volume 9.8 fl (7.4-10.4); Monocytes Absolute Auto 0.3 K/mm3 (0.1-0.6); Neutrophils Absolute Auto 2.1 K/mm3 (1.3-6.7); Neutrophils Percent Auto 54.7 % (45.5-73.1); Platelet Count Result 165 k/mm3 (150-375); Red Blood Count 3.81 M/mm3 (4.2-5.4); Red Cell Distribution Width 12.6 % (11.5-14.5); White Blood Count 3.9 K/mm3 (4.5-10.0)
[2021-11-16 09:36] LABS: Alanine Aminotransferase 12 U/L (4-35); Albumin Level 4.4 g/dL (3.5-5.1); Alkaline Phosphatase 39 U/L (38-126); Anion Gap 7 mmol/L (8-16); Aspartate Amino Transferase 24 U/L (14-36); Bilirubin,Total 0.5 mg/dL (0.2-1.3); Blood Urea Nitrogen 14 mg/dL (7-17); Calcium 9.5 mg/dL (8.4-10.2); Carbon Dioxide 29 mmol/L (22-30); Chloride 99 mmol/L (98-107); Cholesterol 165 mg/dL (0-200); Estimated Glomerular Filt Rate > 60; Glucose 95 mg/dL (65-110); HDL Direct 83 mg/dL; Potassium 3.9 mmol/L (3.4-5.0); Sodium 135 mmol/L (137-145); Triglycerides 64 mg/dL (<150)
[2021-11-16 09:48] LABS: LDL Cholesterol Direct 51 mg/dL
[2021-11-16 10:03] LABS: Free T4 Free Thyroxine 1.49 ng/mL (0.78-2.19)
[2021-11-16 10:07] LABS: Thyroid Stimulating Hormone 0.745 uIU/mL (0.465-4.680)
== END 2021-11-16 08:33 | disposition home or self-care (01) ==
LOC: ANHLAB 08:34
PROVIDERS: PCP Internal Medicine; Visit Provider Internal Medicine
DX: E03.9 Hypothyroidism, unspecified (principal); E78.2 Mixed hyperlipidemia; I10 Essential (primary) hypertension; M32.9 Systemic lupus erythematosus, unspecified; Z79.899 Other long term (current) drug therapy; Z83.3 Family history of diabetes mellitus
CPT/HCPCS: 36415; 80053; 80061; 83036; 84439; 84443; 85025

== ENCOUNTER 2022-04-04 08:41 | Outpatient (CLI) | payer MEDICARE, SELFPAY ==
[2022-04-04 10:03] LABS: Hemoglobin A1C 5.2 % (<5.7)
[2022-04-04 10:08] LABS: Alanine Aminotransferase 15 U/L (6-35); Albumin Level 4.6 g/dL (3.5-5.1); Alkaline Phosphatase 43 U/L (38-126); Anion Gap 6 mmol/L (8-16); Aspartate Amino Transferase 23 U/L (14-36); Bilirubin,Total 0.4 mg/dL (0.2-1.3); Blood Urea Nitrogen 13 mg/dL (7-17); Calcium 9.1 mg/dL (8.4-10.2); Carbon Dioxide 31 mmol/L (22-30); Chloride 102 mmol/L (98-107); Cholesterol 174 mg/dL (0-200); Estimated Glomerular Filt Rate 60; Glucose 104 mg/dL (65-110); HDL Direct 101 mg/dL; Sodium 139 mmol/L (137-145); Triglycerides 44 mg/dL (<150)
[2022-04-04 10:19] LABS: LDL Cholesterol Direct 41 mg/dL
[2022-04-04 10:19] LABS: Free T4 Free Thyroxine 1.55 ng/mL (0.78-2.19)
[2022-04-04 10:37] LABS: Thyroid Stimulating Hormone 0.737 uIU/mL (0.465-4.680)
== END 2022-04-04 08:42 | disposition home or self-care (01) ==
PROVIDERS: PCP Internal Medicine; Visit Provider Internal Medicine
DX: E78.2 Mixed hyperlipidemia (principal); E03.9 Hypothyroidism, unspecified; Z79.899 Other long term (current) drug therapy; Z83.3 Family history of diabetes mellitus; I10 Essential (primary) hypertension
CPT/HCPCS: 36415; 80053; 80061; 83036; 84439; 84443

== ENCOUNTER 2022-05-10 10:16 | Outpatient (CLI) | payer MEDICARE, SELFPAY ==
--- NOTE | ~2022-05-10 | XR_ITS ---
EXAMINATION: XR chest 2V DATE: 05/10/2022 10:39 INDICATION: Cough. COVID 3 weeks prior. TECHNIQUE: PA and lateral views of the chest were obtained. COMPARISON: None FINDINGS: The lungs remain clear with no focal airspace opacities, pulmonary edema, pleural effusion or pneumot horax. The cardiomediastinal silhouette is normal. Mild thoracic spondylosis. IMPRESSION: 1. No acute cardiopulmonary disease. Reviewed, dictated and finalized at location A.
== END 2022-05-10 10:17 | disposition home or self-care (01) ==
LOC: ANHIMG 10:19
PROVIDERS: PCP Internal Medicine; Visit Provider Internal Medicine
DX: R05.9 Cough, unspecified (principal)
CPT/HCPCS: 71046

== ENCOUNTER 2022-07-20 16:09 | Outpatient (CLI) | payer MEDICARE, SELFPAY ==
--- NOTE | ~2022-07-20 | MM_ITS ---
EXAMINATION: MM screening tatum BI w su HISTORY: Screening mammogram TECHNIQUE: Craniocaudal and mediolateral oblique 3-D tomosynthesis images were obtained and synthetic 2-D images were generated. CAD analysis was submitted and interpreted. COMPARISON: 06/16/2021, 06/05/2020, 06/03/2019 bilateral screening mammogram examinations BREAST PARENCHYMAL COMPOSITION: The breasts are heterogeneously dense, which may obscure small masses . FINDINGS: There is no evidence of suspicious mass, calcification, or architectural distortion to sugg est malignancy in either breast. There has been no suspicious interval change. IMPRESSION: 1. No mammographic evidence of malignancy. 2. Recommend routine screening mammography in one year. BI-RADS Category 1: Negative Reviewed, dictated and finalized at location A. MASTER
== END 2022-07-20 16:10 | disposition home or self-care (01) ==
PROVIDERS: PCP Internal Medicine; Visit Provider Internal Medicine
DX: Z12.31 Encounter for screening mammogram for malignant neoplasm of breast (principal)
CPT/HCPCS: 77063; 77067

== ENCOUNTER 2022-08-02 08:27 | Outpatient (CLI) | payer MEDICARE, SELFPAY ==
[2022-08-02 09:18] LABS: Basophils Percent Auto 0.5 % (0.2-1.2); Eosinophils Absolute Auto 0.1 K/mm3 (0-0.3); Eosinophils Percent Auto 1.1 % (0-4.4); Hematocrit 36.7 % (37.0-47.0); Hemoglobin 12.4 g/dL (12.0-15.0); Immature Granulocyte Absolute 0.02 K/mm3 (0.00-0.031); Immature Granulocyte Percent A 0.4 % (0-0.5); Lymphocytes Absolute Auto 1.47 K/mm3 (0.9-3.2); Lymphocytes Percent Auto 25.9 % (18.3-44.2); Mean Corpuscular HGB Conc 33.8 g/dl (32-36); Mean Corpuscular Hemoglobin 31.2 pg (26-34); Mean Corpuscular Volume 92.2 fl (80-100); Mean Platelet Volume 9.8 fl (7.4-10.4); Monocytes Absolute Auto 0.4 K/mm3 (0.1-0.6); Monocytes Percent Auto 7.6 % (2.6-8.5); Neutrophils Absolute Auto 3.7 K/mm3 (1.3-6.7); Neutrophils Percent Auto 64.5 % (45.5-73.1); Platelet Count Result 178 k/mm3 (150-375); Red Blood Count 3.98 M/mm3 (4.2-5.4); Red Cell Distribution Width 12.5 % (11.5-14.5); White Blood Count 5.7 K/mm3 (4.5-10.0)
[2022-08-02 09:30] LABS: Alanine Aminotransferase 15 U/L (6-35); Albumin Level 4.6 g/dL (3.5-5.1); Alkaline Phosphatase 43 U/L (38-126); Anion Gap 6 mmol/L (8-16); Aspartate Amino Transferase 23 U/L (14-36); Bilirubin,Total 0.6 mg/dL (0.2-1.3); Blood Urea Nitrogen 14 mg/dL (7-17); CRP < 0.5 mg/dL (<1.0); Calcium 9.6 mg/dL (8.4-10.2); Carbon Dioxide 29 mmol/L (22-30); Chloride 100 mmol/L (98-107); Cholesterol 185 mg/dL (0-200); Estimated Glomerular Filt Rate 60; Glucose 95 mg/dL (65-110); HDL Direct 93 mg/dL; Potassium 4.3 mmol/L (3.4-5.0); Sodium 135 mmol/L (137-145); Triglycerides 68 mg/dL (<150)
[2022-08-02 09:39] LABS: LDL Cholesterol Direct 55 mg/dL
[2022-08-02 09:52] LABS: Free T4 Free Thyroxine 1.71 ng/mL (0.78-2.19); Vitamin D 25 Hydroxy 50.6 ng/mL
[2022-08-02 09:56] LABS: Thyroid Stimulating Hormone 0.532 uIU/mL (0.465-4.680)
[2022-08-02 10:13] LABS: Erythrocyte Sedimentation Rate 11 mm/hr (0-20)
[2022-08-02 10:57] LABS: Hemoglobin A1C 5.3 % (<5.7)
[2022-08-07 15:07] LABS: Anti Nuclear Antibody Pattern Nuclear, Speckled; Anti Nuclear Antibody Titer 1:40 (Negative)
== END 2022-08-02 08:28 | disposition home or self-care (01) ==
LOC: ANHLAB 08:30
PROVIDERS: PCP Internal Medicine; Visit Provider Internal Medicine
DX: M32.9 Systemic lupus erythematosus, unspecified (principal); I10 Essential (primary) hypertension; E03.9 Hypothyroidism, unspecified; Z79.899 Other long term (current) drug therapy; Z83.3 Family history of diabetes mellitus; E78.2 Mixed hyperlipidemia; E55.9 Vitamin D deficiency, unspecified
CPT/HCPCS: 36415; 80053; 80061; 82306; 83036; 84439; 84443; 85025; 85652; 86038; 86039; 86140

== ENCOUNTER 2022-09-05 09:31 | Outpatient (CLI) | payer MEDICARE, SELFPAY ==
[2022-09-05 10:15] LABS: Add Urine Microscopic? NO; Appearance Urine Clear (Clear); Bilirubin Urine Negative (Negative); Blood Urine Negative (Negative); Color Urine Yellow (Yellow); Glucose Urine UA Negative (Negative); Ketones Urine Negative (Negative); Leukocyte Esterase Ur Negative LEU/UL (Negative); Nitrate Urine Negative (Negative); Protein Urine Negative (Negative); Specific Grav Ur 1.015 (1.001-1.035); Urobilinogen Urine 0.2 mg/dL (<2.0)
[2022-09-05 10:28] LABS: Anion Gap 4 mmol/L (8-16); Blood Urea Nitrogen 13 mg/dL (7-17); Carbon Dioxide 31 mmol/L (22-30); Chloride 100 mmol/L (98-107); Estimated Glomerular Filt Rate > 60; Glucose 95 mg/dL (65-110); Sodium 135 mmol/L (137-145)
== END 2022-09-05 09:32 | disposition home or self-care (01) ==
PROVIDERS: PCP Internal Medicine; Visit Provider Internal Medicine
DX: I10 Essential (primary) hypertension (principal); Z79.899 Other long term (current) drug therapy
CPT/HCPCS: 36415; 80048; 81003

== ENCOUNTER 2022-12-07 12:37 | Outpatient (CLI) | payer MEDICARE, SELFPAY | END 2022-12-07 12:38 | disposition home or self-care (01) | LOC: ANHAUDIO 12:38 | PROVIDERS: PCP Internal Medicine; Visit Provider Otolaryngology | DX: H90.41 Sensorineural hearing loss, unilateral, right ear, with unrestricted hearing on the contralateral side (principal) | CPT/HCPCS: 92557; 92567 ==

== ENCOUNTER 2023-02-08 08:00 | Outpatient (CLI) | payer MEDICARE, SELFPAY ==
[2023-02-09 13:59] LABS: Free T4 Free Thyroxine 1.16 ng/mL (0.78-2.19); Vitamin D 25 Hydroxy 52.7 ng/mL
[2023-02-09 14:00] LABS: Alanine Aminotransferase 16 U/L (6-35); Alkaline Phosphatase 37 U/L (38-126); Anion Gap 2 mmol/L (8-16); Aspartate Amino Transferase 24 U/L (14-36); Bilirubin,Total 0.3 mg/dL (0.2-1.3); Blood Urea Nitrogen 16 mg/dL (7-17); Calcium 9.1 mg/dL (8.4-10.2); Carbon Dioxide 32 mmol/L (22-30); Chloride 103 mmol/L (98-107); Cholesterol 168 mg/dL (0-200); Estimated Glomerular Filt Rate > 60; Glucose 92 mg/dL (65-110); HDL Direct 81 mg/dL; Hemoglobin A1C 5.1 % (<5.7); LDL Cholesterol Direct 57 mg/dL; Sodium 137 mmol/L (137-145); Triglycerides 111 mg/dL (<150)
== END 2023-02-08 08:01 | disposition home or self-care (01) ==
LOC: ANHLAB 19:32
PROVIDERS: PCP Internal Medicine; Visit Provider Internal Medicine
DX: E78.2 Mixed hyperlipidemia (principal); E03.9 Hypothyroidism, unspecified; E55.9 Vitamin D deficiency, unspecified; I10 Essential (primary) hypertension; Z79.899 Other long term (current) drug therapy; Z83.3 Family history of diabetes mellitus
CPT/HCPCS: 36415; 80053; 80061; 82306; 83036; 84439; 84443

== ENCOUNTER 2023-06-06 15:26 | Outpatient (CLI) | payer MEDICARE, SELFPAY ==
--- NOTE | ~2023-06-06 | XR_ITS ---
EXAMINATION: XR chest 2V 06/06/2023 15:43 INDICATION: Cough. Upper respiratory infection. PROCEDURE: 2 view chest COMPARISON: Comparison to multiple prior studies sequentially, with oldest reviewed study dated 02/16. FINDINGS: The lungs are clear. The cardiomediastinal silhouette is within normal limits. There are no pleural effusions. There is no pneumothorax suspected. IMPRESSION: 1: NO ACUTE CARDIOPULMONARY DISEASE. Reviewed, dictated and finalized at location L.
== END 2023-06-06 15:27 | disposition home or self-care (01) ==
PROVIDERS: PCP Internal Medicine; Visit Provider Internal Medicine
DX: R05.9 Cough, unspecified (principal)
CPT/HCPCS: 71046

== ENCOUNTER 2023-08-09 06:45 | Outpatient (CLI) | payer MEDICARE, SELFPAY ==
[2023-08-09 08:30] LABS: Alanine Aminotransferase 14 U/L (6-35); Albumin Level 4.3 g/dL (3.5-5.1); Alkaline Phosphatase 46 U/L (38-126); Anion Gap 7 mmol/L (8-16); Aspartate Amino Transferase 23 U/L (14-36); Bilirubin,Total 0.4 mg/dL (0.2-1.3); Blood Urea Nitrogen 14 mg/dL (7-17); Calcium 9.7 mg/dL (8.4-10.2); Carbon Dioxide 28 mmol/L (22-30); Chloride 102 mmol/L (98-107); Cholesterol 192 mg/dL (0-200); Estimated Glomerular Filt Rate > 60; Glucose 94 mg/dL (65-110); HDL Direct 92 mg/dL; Potassium 3.8 mmol/L (3.4-5.0); Sodium 137 mmol/L (137-145); Triglycerides 77 mg/dL (<150)
[2023-08-09 08:40] LABS: LDL Cholesterol Direct 72 mg/dL
== END 2023-08-09 06:46 | disposition home or self-care (01) ==
LOC: ANHLAB 06:47
PROVIDERS: PCP Internal Medicine; Visit Provider Internal Medicine
DX: E78.5 Hyperlipidemia, unspecified (principal); E03.9 Hypothyroidism, unspecified; I10 Essential (primary) hypertension
CPT/HCPCS: 36415; 80053; 80061

== ENCOUNTER 2023-08-23 16:01 | Outpatient (CLI) | payer MEDICARE, SELFPAY ==
--- NOTE | ~2023-08-23 | MM_ITS ---
EXAMINATION: MM screening tatum BI w su HISTORY: Screening mammogram TECHNIQUE: Craniocaudal and mediolateral oblique 3-D tomosynthesis images were obtained and synthetic 2-D images were generated. CAD analysis was submitted and interpreted. COMPARISON: 07/20/2022, 06/16/2021, 06/15/2020 bilateral screening mammogram examinations BREAST PARENCHYMAL COMPOSITION: The breasts are heterogeneously dense, which may obscure small masses . FINDINGS: There is no evidence of suspicious mass, calcification, or architectural distortion to sugg est malignancy in either breast. There has been no suspicious interval change. IMPRESSION: 1. No mammographic evidence of malignancy. 2. Recommend routine screening mammography in one year. BI-RADS Category 1: Negative Reviewed, dictated and finalized at location A. MASON TENDER
== END 2023-08-23 16:02 | disposition home or self-care (01) ==
LOC: ANHIMG 16:03
PROVIDERS: PCP Internal Medicine; Visit Provider Internal Medicine
DX: Z12.31 Encounter for screening mammogram for malignant neoplasm of breast (principal)
CPT/HCPCS: 77063; 77067

== ENCOUNTER 2023-12-20 07:09 | Outpatient (CLI) | payer MEDICARE, SELFPAY ==
[2023-12-20 07:56] LABS: Basophils Percent Auto 0.8 % (0.2-1.2); Eosinophils Absolute Auto 0.1 K/mm3 (0-0.3); Eosinophils Percent Auto 1.6 % (0-4.4); Hematocrit 36.7 % (37.0-47.0); Immature Granulocyte Absolute 0.01 K/mm3 (0.00-0.031); Immature Granulocyte Percent A 0.3 % (0-0.5); Lymphocytes Absolute Auto 1.19 K/mm3 (0.9-3.2); Lymphocytes Percent Auto 31.1 % (18.3-44.2); Mean Corpuscular HGB Conc 32.7 g/dl (32-36); Mean Corpuscular Hemoglobin 30.9 pg (26-34); Mean Corpuscular Volume 94.6 fl (80-100); Mean Platelet Volume 9.9 fl (7.4-10.4); Monocytes Absolute Auto 0.3 K/mm3 (0.1-0.6); Monocytes Percent Auto 8.9 % (2.6-8.5); Neutrophils Absolute Auto 2.2 K/mm3 (1.3-6.7); Neutrophils Percent Auto 57.3 % (45.5-73.1); Platelet Count Result 166 k/mm3 (150-375); Red Blood Count 3.88 M/mm3 (4.2-5.4); Red Cell Distribution Width 12.7 % (11.5-14.5); White Blood Count 3.8 K/mm3 (4.5-10.0)
[2023-12-20 08:12] LABS: Alanine Aminotransferase 15 U/L (6-35); Albumin Level 4.4 g/dL (3.5-5.1); Alkaline Phosphatase 46 U/L (38-126); Anion Gap 4 mmol/L (4-12); Aspartate Amino Transferase 23 U/L (14-36); Bilirubin,Total 0.4 mg/dL (0.2-1.3); Blood Urea Nitrogen 14 mg/dL (7-17); Calcium 9.8 mg/dL (8.4-10.2); Carbon Dioxide 29 mmol/L (22-30); Chloride 102 mmol/L (98-107); Estimated Glomerular Filt Rate > 60; Glucose 100 mg/dL (65-110); Magnesium 1.9 mg/dL (1.6-2.3); Sodium 135 mmol/L (137-145)
[2023-12-20 08:30] LABS: Appearance Urine Clear (Clear); Bilirubin Urine Negative (Negative); Blood Urine Negative (Negative); Color Urine Yellow (Yellow); Glucose Urine UA Negative (Negative); Ketones Urine Negative (Negative); Leukocyte Esterase Ur Negative LEU/UL (Negative); Nitrate Urine Negative (Negative); Protein Urine Negative (Negative); Urobilinogen Urine 0.2 mg/dL (<2.0); pH Urine 6.5 (5.0-9.0)
[2023-12-20 09:02] LABS: Add Urine Microscopic? NO
[2023-12-20 09:12] LABS: Vitamin D 25 Hydroxy 53.1 ng/mL
== END 2023-12-20 07:10 | disposition home or self-care (01) ==
LOC: ANHIMG 07:15 → ANHLAB 08:03
PROVIDERS: PCP Internal Medicine; Visit Provider Internal Medicine
DX: E55.9 Vitamin D deficiency, unspecified (principal); Z79.899 Other long term (current) drug therapy; E03.9 Hypothyroidism, unspecified; I10 Essential (primary) hypertension
CPT/HCPCS: 36415; 80053; 81003; 82306; 83735; 84439; 84443; 85025

== ENCOUNTER 2023-12-27 14:04 | Outpatient (CLI) | payer MEDICARE, SELFPAY ==
[2023-12-27 14:23] LABS: Basophils Percent Auto 0.6 % (0.2-1.2); Eosinophils Percent Auto 0.8 % (0-4.4); Hematocrit 34.7 % (37.0-47.0); Hemoglobin 11.7 g/dL (12.0-15.0); Immature Granulocyte Absolute 0.01 K/mm3 (0.00-0.031); Immature Granulocyte Percent A 0.2 % (0-0.5); Lymphocytes Absolute Auto 1.84 K/mm3 (0.9-3.2); Lymphocytes Percent Auto 36.4 % (18.3-44.2); Mean Corpuscular HGB Conc 33.7 g/dl (32-36); Mean Corpuscular Hemoglobin 31.5 pg (26-34); Mean Corpuscular Volume 93.3 fl (80-100); Mean Platelet Volume 9.2 fl (7.4-10.4); Monocytes Absolute Auto 0.4 K/mm3 (0.1-0.6); Monocytes Percent Auto 8.3 % (2.6-8.5); Neutrophils Absolute Auto 2.7 K/mm3 (1.3-6.7); Neutrophils Percent Auto 53.7 % (45.5-73.1); Platelet Count Result 166 k/mm3 (150-375); Red Blood Count 3.72 M/mm3 (4.2-5.4); Red Cell Distribution Width 12.5 % (11.5-14.5); White Blood Count 5.1 K/mm3 (4.5-10.0)
== END 2023-12-27 14:05 | disposition home or self-care (01) ==
LOC: ANHLAB 14:06
PROVIDERS: PCP Internal Medicine; Visit Provider Internal Medicine
DX: D70.9 Neutropenia, unspecified (principal)
CPT/HCPCS: 36415; 85025

== ENCOUNTER 2024-03-20 05:55 | Day surgery (SDC) | payer MEDICARE, SELFPAY ==
[2024-02-08 09:09] VITALS: BMI 22.4
[2024-03-08 10:25] VITALS: BMI 21.8
[2024-03-20 06:47] VITALS: BP 174/71; PULSE 59; RESP 14; TEMP 36.6; O2SAT 100
--- NOTE | 2024-03-20 07:10 | PM.HPGS ---
History of Present Illness History of Present Illness Consent: Risks, benefits, and alternatives have been discussed and questions answered. Patient agrees to proceed with procedure. Chief complaint: Family HX colon cancer, personal HX colon polyps Narrative: Jessica Steele is a 83 year old female presents for screening colonoscopy. Patient's current weight appetite and bowel movements are normal. She denies abdominal pain. Patient has had no bleeding. Family history is significant for colon cancer. Patient herself has had colon polyps on several occasions in the past. Patient presents today for surveillance colonoscopy. Review of Systems Review of Systems: All systems reviewed & are unremarkable except as noted in HPI and below PMFSH Past Medical History Medical History Adult BMI 19-24 kg/sq m BMI 20.0-20.9, adult BMI 21.0-21.9, adult Decreased ROM of left knee Encounter for Medicare annual wellness exam Encounter for routine adult health examination with abnormal findings Encounter for routine adult health examination without abnormal findings Follow up Follow up Hand weakness Hematuria Hip pain, left Left knee DJD Left knee pain On custodial drug therapy Osteopenia PVCs (premature ventricular contractions) Raynauds disease Recent upper respiratory tract infection Right elbow pain Right knee DJD Sacroiliitis Surgical History Surgical History H/O knee surgery 2012, Left knee meniscectomy Dr [place] H/O: hysterectomy 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o smoke exposure: No Smoking end date: 08/28/74 Additional smoking assessment comments: DENIES ANY FORM OF TOBACCO/NICOTINE USE Alcohol intake: current Drinks per week: 14 Alcohol use details: 2 LIGHT BEERS PER DAY Substance use: never Substance use type: does not use Other substance usage details: 1-2 light beers/day Lack of Transportation: No Lack of Food: Never True Current Housing: I Have Housing Concerned About Future Housing: No Difficulty Paying Gas/Electric Bills: No Difficulty Paying for Meds: No Currently Unemployed: No Education: High School Diploma/GED Difficulty w/ Childcare or Family Care: No Living arrangements: alone Occupation/Education: retired Gender identity (if verbalized by the patient): Female Spiritual care concerns: No Meds Home Medications and Allergies Home Medications Medication Instructions Recorded Confirmed Type calcium citrate 315 mg 1 tablet PO BID 03/04/20 03/20/24 History calcium-vitamin D3 6.25 mcg (250 unit) tablet (Citracal + Vitamin D Maximum) glucosamine sulfate 1,000 mg 1,000 mg PO BID 03/04/20 03/20/24 History capsule multivitamin 1 tablet PO DAILY 03/04/20 03/20/24 History omega-3 fatty acids 1,000 mg 1,000 mg PO BID 03/04/20 03/20/24 History capsule (Fish Oil Concentrate) aspirin 81 mg tablet,delayed 81 mg PO DAILY 07/07/21 03/20/24 History release (Adult Aspirin Regimen) diphenhydramine HCl 25 mg capsule 25 mg PO QHS 03/13/23 03/20/24 History (Benadryl) losartan 25 mg tablet 25 mg PO DAILY #90 tabs 06/07/23 03/20/24 Rx magnesium 250 mg tablet 250 mg PO DAILY 06/07/23 03/20/24 History amoxicillin 500 mg capsule 500 mg PO DIRECTED #12
[2024-03-20] MEDS: LACTATED RINGERS 1,000 ML 150 ML IV CONT (07:31)
--- NOTE | 2024-03-20 07:46 | WPDANESEPPF ---
Anes - Initial Pre Proc Eval Procedure: Operation Date: 03/20/24 08:00 Proposed Procedures p Diagnostic Colonoscopy - Daniel Merritt MD Date/Time: 03/20/24 07:46 Surgeon: Daniel Merritt MD Pre Op Diagnosis: Family HX colon cancer, personal HX colon polyps Patient Data Age: 83 Gender: F Height: 1.59 m Weight: 55.2 kg Last Vital Signs Temp 36.6 C 03/20/24 06:47 Pulse 59 L 03/20/24 06:47 Resp 14 03/20/24 06:47 BP 174/71 H 03/20/24 06:47 Pulse Ox 100 03/20/24 06:47 O2 Del Method Room Air 03/20/24 06:47 Allergies Allergy/AdvReac Type Severity Reaction Status Date / Time cefdinir AdvReac Mild Nausea Verified 03/20/24 06:43 Home Medications Medication Instructions Recorded Confirmed Type calcium citrate 315 mg 1 tablet PO BID 03/04/20 03/20/24 History calcium-vitamin D3 6.25 mcg (250 unit) tablet (Citracal + Vitamin D Maximum) glucosamine sulfate 1,000 mg 1,000 mg PO BID 03/04/20 03/20/24 History capsule multivitamin 1 tablet PO DAILY 03/04/20 03/20/24 History omega-3 fatty acids 1,000 mg 1,000 mg PO BID 03/04/20 03/20/24 History capsule (Fish Oil Concentrate) aspirin 81 mg tablet,delayed 81 mg PO DAILY 07/07/21 03/20/24 History release (Adult Aspirin Regimen) diphenhydramine HCl 25 mg capsule 25 mg PO QHS 03/13/23 03/20/24 History (Benadryl) losartan 25 mg tablet 25 mg PO DAILY #90 tabs 06/07/23 03/20/24 Rx magnesium 250 mg tablet 250 mg PO DAILY 06/07/23 03/20/24 History amoxicillin 500 mg capsule 500 mg PO DIRECTED #12 caps 09/19/23 03/20/24 Rx valacyclovir 500 mg tablet 500 mg PO TID PRN cold sores #15 09/25/23 03/20/24 Rx tabs alprazolam 0.25 mg tablet 0.25 mg PO HS 03/08/24 03/20/24 History multivit with minerals-iron 18 1 tablet PO DAILY 03/08/24 03/20/24 History mg-folic ac 400 mcg-vit K 25 mcg tablet (Adults Multivitamin) carvedilol 12.5 mg tablet 12.5 mg PO Q12H 03/20/24 03/20/24 History hydrochlorothiazide 12.5 mg capsule 12.5 mg PO DAILY 03/20/24 03/20/24 History hydroxychloroquine 200 mg tablet 200 mg PO DIRECTED 03/20/24 03/20/24 History levothyroxine 100 mcg tablet 100 mcg PO DAILY 03/20/24 03/20/24 History pantoprazole 40 mg tablet,delayed 40 mg PO QAM 03/20/24 03/20/24 History release Patient hx anesthesia problems: none Family hx anesthesia problems: none Results Review: All pre-operative results and documents have been reviewed as part of the pre-operative evaluation. [facility] Past Medical History Medical History Adult BMI 19-24 kg/sq m BMI 20.0-20.9, adult BMI 21.0-21.9, adult Decreased ROM of left knee Encounter for Medicare annual wellness exam Encounter for routine adult health examination with abnormal findings Encounter for routine adult health examination without abnormal findings Follow up Follow up Hand weakness Hematuria Hip pain, left Left knee DJD Left knee pain On penitentiary drug therapy Osteopenia PVCs (premature ventricular contractions) Raynauds disease Recent upper respiratory tract infection Right elbow pain Right knee DJD Sacroiliitis Surgical History Surgical History H/O knee surgery 2012, Left knee meniscectomy Dr Salinas H/O: hysterectomy 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
[2024-03-20 08:28] VITALS: BP 96/50; PULSE 57; RESP 14; O2SAT 99
--- NOTE | 2024-03-20 08:29 | WPDANESPN ---
Anes - Prog Note Post-Op Date/Time: 03/20/24 08:29 Cardiovascular status: normal Respiratory status: normal Airway patency: baseline Mental status: baseline Post-Op hydration status: normal Vital Signs: Last Vital Signs Temp 36.6 C 03/20/24 06:47 Pulse 59 L 03/20/24 06:47 Resp 14 03/20/24 06:47 BP 174/71 H 03/20/24 06:47 Pulse Ox 100 03/20/24 06:47 O2 Del Method Room Air 03/20/24 06:47 Pain Score (VAS): 0 I/O: Intake & Output 03/19/24 03/20/24 03/20/24 23:59 07:59 15:59 Intake Total 500 Balance 500 Patient Feedback: Patient satisfied with anesthetic care.
[2024-03-20 08:38] VITALS: BP 102/76; PULSE 56; RESP 14; O2SAT 100
[2024-03-20 08:48] VITALS: BP 119/56; PULSE 56; RESP 14; O2SAT 100
== END 2024-03-20 09:10 | disposition home or self-care (01) ==
PROVIDERS: PCP Internal Medicine; Visit Provider Internal Medicine Gastroenterology
PROC: 0DJD8ZZ Inspection of Lower Intestinal Tract, Via Natural or Artificial Opening Endoscopic (ICD-10-PCS; CPT 45378; principal; 2024-03-20 08:00)
DX: Z86.010 Personal history of colon polyps (principal); K57.30 Diverticulosis of large intestine without perforation or abscess without bleeding; K64.8 Other hemorrhoids; Z80.0 Family history of malignant neoplasm of digestive organs
CPT/HCPCS: G0105

== ENCOUNTER 2024-05-08 07:08 | Outpatient (CLI) | payer MEDICARE, SELFPAY ==
[2024-05-08 08:21] LABS: CRP < 0.5 mg/dL (<1.0); Cholesterol 178 mg/dL (0-200); HDL Direct 87 mg/dL; Triglycerides 82 mg/dL (<150)
[2024-05-08 08:29] LABS: LDL Cholesterol Direct 62 mg/dL
[2024-05-08 08:32] LABS: Erythrocyte Sedimentation Rate 15 mm/hr (0-20)
[2024-05-08 09:11] LABS: Hemoglobin A1C 5.5 % (<5.7)
[2024-05-08 09:29] LABS: Free T4 Free Thyroxine 1.08 ng/mL (0.78-2.19)
== END 2024-05-08 07:09 | disposition home or self-care (01) ==
LOC: ANHLAB 07:11
PROVIDERS: PCP Internal Medicine; Visit Provider Internal Medicine
DX: M32.9 Systemic lupus erythematosus, unspecified (principal); Z79.899 Other long term (current) drug therapy; E03.9 Hypothyroidism, unspecified; E78.5 Hyperlipidemia, unspecified; Z13.1 Encounter for screening for diabetes mellitus
CPT/HCPCS: 36415; 80061; 83036; 84439; 84443; 85652; 86140

== ENCOUNTER 2024-08-14 13:55 | Outpatient (CLI) | payer MEDICARE, SELFPAY ==
--- NOTE | ~2024-08-14 | XR_ITS ---
XR sinus min 3V Ordering provider: Emre Garrido MD History: . R05.3 - Chronic cough . Comparison: None. FINDINGS: BONES: No acute fracture as visualized. PARANASAL SINUSES: Well aerated. SOFT TISSUES: Normal. IMPRESSION: No visualized acute facial fracture. Reviewed, dictated and finalized at location A. PHYSICIAN ASST
--- NOTE | ~2024-08-14 | XR_ITS ---
EXAMINATION: XR chest 2V 08/14/2024 14:27 INDICATION: Chronic cough PROCEDURE: 2 view chest COMPARISON: Comparison to multiple prior studies sequentially, with oldest reviewed study dated 01/2013. FINDINGS: The lungs are clear. The lungs are hyperinflated which is consistent with, but not diagnost ic of chronic obstructive pulmonary disease. The cardiomediastinal silhouette is within normal limit s. There are no pleural effusions. There is no pneumothorax suspected. IMPRESSION: 1: NO ACUTE CARDIOPULMONARY DISEASE. Reviewed, dictated and finalized at location B. F MACHINE OPERATOR
== END 2024-08-14 13:56 | disposition home or self-care (01) ==
PROVIDERS: PCP Internal Medicine; Visit Provider Internal Medicine
DX: R05.3 Chronic cough (principal); R09.89 Other specified symptoms and signs involving the circulatory and respiratory systems
CPT/HCPCS: 70220; 71046

== ENCOUNTER 2024-08-30 08:53 | Outpatient (CLI) | payer MEDICARE, SELFPAY | END 2024-08-30 08:54 | disposition home or self-care (01) | LOC: ANHPFT 08:54 | PROVIDERS: PCP Internal Medicine; Visit Provider Internal Medicine | DX: R05.3 Chronic cough (principal) | CPT/HCPCS: 94060; 94726; 94729 ==

== ENCOUNTER 2024-09-13 08:05 | Outpatient (CLI) | payer MEDICARE, SELFPAY ==
--- NOTE | ~2024-09-13 | XR_ITS ---
EXAMINATION: XR UGI w barium swallow DATE: 09/13/2024 08:40 INDICATION: Gastroesophageal reflux disease. Chronic cough. TECHNIQUE: The patient drank thick barium, gas-producing crystals, and thin barium. Fluoroscopy of th e esophagus, stomach, and proximal small bowel was performed. Fluoroscopy exposure time was 0.6 minut es. The total number of images was 518. Total dose-area product was 1.389 Gy-cm^2. COMPARISON: CT abdomen and pelvis 10/27/2020 FINDINGS: There is no mass or stricture of the esophagus. Esophageal motility is normal. There is no hiatal hernia. There was no gastroesophageal reflux with provocative maneuvers. The stomach and proxi mal small bowel show normal folding patterns. IMPRESSION: 1. Normal upper gastrointestinal series and esophagram. Reviewed, dictated and finalized at location A. AL ASSISTED THERAPIST
--- OUTSIDE RECORDS SUMMARY | 2024-09-19 05:16 | XMS_ITS | Continuity of Care Document ---
Author Organization [facility] Address [address] [place] [address] Phone Care Team Providers Care Valve Tester Name Role Phone [facility] Unavailable Unavail able Sickage, Luna Unavailable Unavailable Procedures Procedure Date BF Polycarb Sphcyl [place] To +/-4d .12-2d Frame - Up To [...] Diagnoses Date Provider Providers Copied on Encounter [facility], [address] [place] [address] [address], [place], [place], [id number], [place] tel:[phone] [facility] No Information 2-201 0 [facility] . [address] [facility], [address], [place], [place], [address], [place]. tel:[phone] Referring Provider: Beto Romero, [address], [place], [place], [facility]. tel:[phone] sulting Provider: Luna Copeland, [address] [facility], [place], [facility]. tel:[phone] Office/outpat ient Visit, Est [facility], [address], [place], [place], [address], [place] tel:[phone] [facility] No Information 5-201 0 Zakia Pérez. [address] , [address], [place], [facility], [place]. tel:[phone] [facility], [address], [place], [place], [address], [place] tel:[phone] [facility] No Information 3 1-200 9 Zakia Pérez. [facility] , [address], [place], [facility], [place]. tel:[phone] [facility], [address] [place] [address] [address], [place], [place], [address], [place] tel:[phone] [facility] No Information 0-200 9 Zakia Pérez. [address] , [address], [place], [facility], [place]. tel:[phone] Referring Provider: Beto Romero, [address], [place], [address]. tel:[phone] [facility], [address] [place] [address] [address], [place], [place], [address], [place] tel:[phone] [facility] No Information 1 6-200 9 Zakia Pérez. [address] , [address], [place], [facility], [place]. tel:[phone] Referring Provider: Gabrielle Condon [address], [place], [address]. tel:[phone] [facility], [address], [place], [place], [address], [place] tel:[phone] [facility] No Information Apr-0 9-200 9 Adrien Tao. [address] [facility], [place], [facility], [place]. tel:[phone] Referring Provider: Beto Romero, [address], [place], [facility]. tel:[phone] [facility], [address] [place] [address] [address], [place], [place], [address], tel:[phone] [facility] No Information Apr-0 6-200 9 Zakia Pérez. [address], [address], [place], [facility], [place]. tel:[phone] Referring Provider: Beto Romero, [address], [place], [facility]. tel:[phone] Office/outpat ient Visit, [facility], [address], [place], [place], [address], [place] tel:[phone] [facility] No Information Mar-0 9-200 9 Zakia Pérez. [address], [address], [place], [facility], [place]. tel:[phone] Referring Provider: Gabrielle Condon [address], [place], [facility]. tel:[phone] [facility], [address], [place], [place], [address], [place] tel:[phone] [facility] No Information Donnie-2 4-200 8 Zakia Pérez. [address], [address], [place], [address], [place]. tel:[phone] Referring Provider: Beto Romero, [address] [facility] [address], [place], [address]. tel:[phone] [facility], [address], [place], [place], [address], [place] tel:[phone] [facility] No Information Jan-2 0-200 7 Zakia Pérez. [address] [facility] , [address], [place], [address], [place]. tel:[phone] Family History Family Member Type Diagnosis Age [...]
--- OUTSIDE RECORDS SUMMARY | 2024-09-19 05:16 | XMS_ITS | Referral Summary ---
Author Organization [facility] Address [address] [place] [address] Care Team Providers Care Pressing Department Supervisor Name Role Phone Unavailable Primary Care Provider Unavailabl e Source Comments [facility],non-owned Affiliates and Associated Physician Practices is amultiple site organization consisting of ambulatory clinics and hospital sitesin [place], [place], [place] and [place]. This disclosure is being madepursuant to the Care Everywhere program and may not contain all information available regarding this patient. Last updated 18.[facility] [employer] Social History Tobacco Use Types Packs/Day Years Used Date Smoking Tobacco: Never Assessed Sex and Gender Information Value Date Recorded Sex Assigned at Not on file Gender Identity Not on file Sexual Orientation Not on file Plan of Treatment Not on file
--- OUTSIDE RECORDS SUMMARY | 2024-09-19 05:16 | XMS_ITS | Patient Health Summary ---
Author Organization [facility] Address [address] [place] [address] Care Team Providers Care Magazine Worker Name Role Phone Unavailable Primary Care Provider Unavailabl e Note from [facility],non-owned Affiliates and Associated Physician Practices is amultiple site organization consisting of ambulatory clinics and hospital sitesin [place], [place], [place] and [place]. This disclosure is being madepursuant to the Care Everywhere program and may not contain all information available regarding this patient. Last updated 18.[facility] Social History Tobacco Use Types Packs/Day Years Used Date Smoking Tobacco: Never Assessed Sex and Gender Information Value Date Recorded Sex Assigned at Not on file Gender Identity Not on file Sexual Orientation Not on file Procedures * DERMATOPATHOLOGY(Performed 04/21/2021) Results * DERMATOPATHOLOGY (04/21/2021 12:00 AM CDT) Case Report Dermatopathology Report ? Case: [id number] ? Authorizing Provider: ??Yehuda Haas MD ?Collected: ? 04/21/2021 12:00 AM ? Ordering Location: ? [facility] ?Received: ?04/22/2021 11:11 AM ? Pathologist: ? Sanjiv Munroe MD ? Specimens: ?? A) - Skin, left lower melolabial fold ? B) - Skin, left latreal chin crease ? 1 2:57 PM T DERMATOPATHOLOGY LABORATORY Final Diagnosis Specimen A. SKIN, left lower melolabial fold: MILIUM (L72.8) Specimen B. SKIN, left latreal chin crease: MILIUM (L72.8) 1 2:57 PM T DERMATOPATHOLOGY LABORATORY Clinical History A-B: R/O BCC 1 2:57 PM T DERMATOPATHOLOGY LABORATORY Gross Description Specimen A: Received is one formalin filled container labeled with the patient's name and designated left lower melolabial fold. The specimen consists of a punch biopsy measuring 4x4x5 mm, bisected. Jar 0. Specimen B: Received is one formalin filled container labeled with the patient's name and designated left latreal chin crease. The specimen consists of a punch biopsy measuring 4x4x5 mm, bisected. Jar 0. 1 2:57 PM T DERMATOPATHOLOGY LABORATORY Microscopic Description Specimen A. SKIN, left lower melolabial fold: There is a space that contains loosely aggregated cornified cells surrounded by epithelium that resembles normal epidermis. Specimen B. SKIN, left latreal chin crease: There is a space that contains loosely aggregated cornified cells surrounded by epithelium that resembles normal epidermis. 1 2:57 PM T DERMATOPATHOLOGY LABORATORY Disclaimer An external and internal positive and negative controls are appropriate for the histochemical, immunohistochemical and immunofluorescence stain(s) in this case (if any), except where stated explicitly. The performance characteristics of the stain(s) cited in this report were developed and its performance characteristic determined by the Dermatopathology Laboratory at [facility], directed by Dr. Denisse Munroe. These tests need not be, and therefore are not, approved by the [place] Food and Drug Administration. The tests are used for clinical purposes. Billing Codes Specimen Charges Stain Charges 04125 58000 1 1 1 2:57 PM CDT DERMATOPATHOLOGY LABORATORY Embedded Images 1 2:57 PM CDT DERMATOPATHOLOGY LABORATORY Pathology/Cytology TISSUE SPECIMEN FROM SKIN / Unknown 04/21/2021 04/22/2021 11:11 AM CDT Miscellaneous samples (specimen) TISSUE SPECIMEN FROM SKIN / Unknown 04/21/2021 04/22/2021 11:11 AM CDT Yehuda Haas MD LAB - PATHOLOGY/CYTO LOGY ORDERABLES DERMATOPATHOLOGY LABORATORY [facility] - Department of Dermatology [facility] [address] [place] [address], [address] [phone]
--- OUTSIDE RECORDS SUMMARY | 2024-09-19 05:16 | XMS_ITS | Referral Summary ---
Author Organization [facility] Address [address] [place] [address] Care Team Providers Care Measurer Name Role Phone Emre Garrido MD Primary Care Provider [phone] Allergies Active Allergy Reactions Criticality Noted Date Comments Hydrocodone Nausea only Low 01/07/2022 Medications ALPRAZolam (XANAX) 0.25 mg tablet Take 1 tablet (0.25 mg total) by mouth 2 (two) times a day as needed for anxiety or sleep 2 Active carvediloL (COREG) 12.5 mg tabletIndications: hypertension,PVC's Take 1 tablet (12.5 mg total) by mouth 2 (two) times a day with meals 2 Active hydroCHLOROthiazid e (MICROZIDE) 12.5 mg capsuleIndications :hypertension Take 1 capsule (12.5 mg total) by mouth every morning 2 Active levothyroxine (SYNTHROID) 100 mcg tabletIndications: hypothyroidism Take 1 tablet (100 mcg total) by mouth consultant [employer] and [employer]. vice president [employer] (ex ) before breakfast 2 Active omega-3 fatty acids-fish oil 300-1,000 mg capsuleIndications :supplement Take 1 capsule (1 g total) by mouth 2 (two) times a day Active pantoprazole DR (PROTONIX) 20 mg EC tabletIndications: GERD Take 1 tablet (20 mg total) by mouth every morning Active hydrOXYchloroQUINE (PLAQUENIL) 200 mg tabletIndications: Systemic Lupus Erythematosus Take 1 tablet (200 mg total) by mouth 3 (three) times a week Active multivitamin capsuleIndications :Vitamin Deficiency Prevention Take 1 capsule by mouth nightly Active calcium/D3/zinc/co pper/janina (CITRACAL-D3 MAXIMUM PLUS ORAL)Indications:s upplement Take by mouth 2 (two) times a day Active glucosamine sulfate 1,000 mg capsuleIndications :supplement Take by mouth 2 (two) times a day Active cetirizine (ZyrTEC) 5 mg tablet Take 1 tablet (5 mg total) by mouth as needed for allergies Active HYDROcodone-acetam inophen (NORCO) 5-325 mg per tabletIndications: Pain Please take 1-2 tablets every 4 hours as needed for pain. 30 tablet 2 Active senna (SENOKOT) 8.6 mg tablet Take 1 tablet by mouth 2 (two) times a day 20 tablet 1 2 Active BinaxNOW COVID-19 Ag Self Test kit Use as Directed on the Package 3 Active losartan (COZAAR) 100 mg tablet Take 1 tablet (100 mg total) by mouth daily 3 Active Active Problems Problem Noted Date Diagnosed Date Herniated disc 01/03/2022 PVC's (premature ventricular contractions) 01/03 Arthrofibrosis of knee joint, left 01/03/2022 Overview (01/03/2022): Added automatically from request for surgery [id number] Immunizations Name Administration Dates Next Due Influenza, Quad, Adjuvantate d, Intramuscular 06/10/2021 Influenza, Quadrivalent, Spl it, Preservative Free, Intramuscular 06/08/2020 Influenza, Unspecified 06/19/2014,06/20/2013,08/2011 Pneumococcal Conjugate PCV 13 09/23/2016 Pneumococcal, Unspecified 05/28/2012 Td, adsorbed 05/02/2003 Tdap 06/30/2015 ZOSTER LIVE 07/28/2014 Social History Tobacco Use Types Packs/Day Years Used Date Smoking Tobacco: Former Cigarettes Q uit: 1975 Smokeless Tobacco: Never AUDIT-C Answer Date Recorded Q1: How often do you have a drink containing alc ohol? 2-3 times a week 01/21/2022 Q2: How many drinks containi ng alcohol do you have on a typical day when you are drinking? 1 or 2 01/21/2022 Q3: How often do you have si x or more drinks on one occasion? 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 Gender Identity Not on file Sexual Orientation Not on file Last Filed Vital Signs Vital Sign Reading Time Taken Comments Blood Pressure 134/71 01/21/2022 8:20 AM CDT Pulse 68 01/21/2022 8:25 AM CDT Temperature 35.3 ??C (95.54 ??F) 01/21/2022 8:20 AM C DT Respiratory Rate 49 01/21/2022 8:25 AM CDT Oxygen Saturation 97% 01/21/2022 8:25 AM CDT Inhaled Oxygen Concentration - - Weight 54.3 kg (119 lb 12.8 oz) 01/21/2022 5:13 AM CDT Height 157.5 cm (5' 2 ) 01/21/2022 5:13 AM CDT Body Mass Index 21.91 01/21/2022 5:13 AM CDT Plan of Treatment Not on file Insurance MEDICARE RAILROAD [facility] MEDICARE RAILROAD [facility] Advance Directives For more information, please contact: [phone] Documents on File Type Date Recorded Patient Auction Clerk Expl anation Power of Bus Repair Supervisor 01/21/2022 5:39 AM Care Teams Measurer Relationship Specialty Start Date End Date Emre Garrido MD [address] [place] [address] PCP - General Internal Medicine 07/21/21
--- OUTSIDE RECORDS SUMMARY | 2024-09-19 05:16 | XMS_ITS | Clinical Summary ---
Author Organization [facility] Address [address] [place] [address] Phone Care Team Providers Care Manager Infrastructure Name Role Phone Emre Garrido MD Primary Care Provider + Allergies No known active allergies Medications lansoprazole (PREVACID) 30 mg Oral CpDR Take 30 mg by mouth daily. Active HYDROCHLOROTHIAZ PAOLA PO Take by mouth. Active aspirin (CLARISSE) 81 mg Oral Tab Take by mouth. Active OMEGA-3 FATTY ACIDS (FISH OIL PO) Take by mouth. Active MULTIVITAMINS (MULTIVITAMIN PO) Take by mouth. Active dexamethasone (DECADRON) 0.75 mg Oral Tab Take 0.75 mg by mouth daily. Active carvedilol SR 24 hr (COREG CR) 20 mg Oral CM24 Take 20 mg by mouth daily with breakfast. Active Active Problems Problem Noted Date Diagnosed Date Herniated disc PVC's (premature ventricular contractions) Family History Medical History Relation Name Comments Heart Disease Father Lung Cancer Father Colon Cancer Mother Other Mother diabetes Breast Cancer Sister dx @ 64 Relation Name Status Comments Father Mother Sister Social History Tobacco Use Types Packs/Day Years Used Date Smoking Tobacco: Former Comments:1975 Alcohol Use Standard Drinks/Week Comments Yes 0 (1 standard drink = 0.6 oz pur e alcohol) Comments No Sex and Gender Information Value Date Recorded Sex Assigned at Not on file Legal Sex Female 5:42 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 Gender Identity Not on file Sexual Orientation Not on file Last Filed Vital Signs Vital Sign Reading Time Taken Comments Blood Pressure 102/58 05/07/2009 12:43 PM CDT Pulse - - Temperature - - Respiratory Rate - - Oxygen Saturation - - Inhaled Oxygen Concentration - - Weight 54.4 kg (120 lb) 05/07/2009 12:43 PM CDT Height 160 cm (5' 3 ) 05/07/2009 12:43 PM CDT Body Mass Index 21.26 05/07/2009 12:43 PM CDT Plan of Treatment Health Maintenance Due Date Last Done Comments DTAP/TDAP/TD VACCINES (1 - Tdap) 1961 PNEUMOCOCCAL VACCINE 65+ YEARS (1 of 1 - PCV) 03/31/19 92 ZOSTER VACCINE (1 of 2) 1992 OSTEOPOROSIS SCREENING 2007 RSV VACCINE (60+ or ) (1 - 1-dose 75+ series) 2017 INFLUENZA VACCINE (#1) [address] [place] [address] [facility] Address: [facility] [address] [place] [address] MEDICARE RAILROAD Care Teams Manager Infrastructure Relationship Specialty Start Date End Date Emre Garrido MD PCP - General 05/07/09
--- OUTSIDE RECORDS SUMMARY | 2024-09-19 05:16 | XMS_ITS | Clinical Summary ---
Author Organization [facility] Address [address] [place] [address] Care Team Providers Care Subsea Engineer Name Role Phone Unavailable Primary Care Provider Unavailabl e Source Comments [facility] [employer],non-owned Affiliates and Associated Physician Practices is amultiple site organization consisting of ambulatory clinics and hospital sitesin [place], [place], [place] and [place]. This disclosure is being madepursuant to the Care Everywhere program and may not contain all informatio navailable regarding this patient. Last updated 18.[facility] [employer] Social History Tobacco Use Types Packs/Day Years Used Date Smoking Tobacco: Never Assessed Sex and Gender Information Value Date Recorded Sex Assigned at Not on file Gender Identity Not on file Sexual Orientation Not on file Plan of Treatment Health Maintenance Due Date Last Done Comments BONE DENSITY TESTING 1940 MEDICARE AWV ? 12 MONTHS 1942 DTAP/TDAP/TD VACCINES (1 - Tdap) 1961 PNEUMOCOCCAL VACCINE 50+ (1 of 1 - PCV) 1992 ZOSTER VACCINE (1 of 2) 1992 Respiratory Syncytial Virus (RSV) Vaccine Pt: or over 60 yrs (1 - 1-dose 75+ series) 2017 COVID-19 VACCINE (2023-2 5 season) 2024 INFLUENZA VACCINE (#1) 2024 DEPRESSION SCREENING 08/28/2024 HEPATITIS B VACCINE Aged Out No longe r eligible based on patient's age to complete this topic HIB VACCINE Aged Out No longer eligi ble based on patient's age to complete this topic HPV VACCINE Aged Out No longer eligi ble based on patient's age to complete this topic MENINGOCOCCAL (Group B) VACCINE Aged Out No longer eligible based on patient's age to complete this topic MENINGOCOCCAL VACCINE Aged Out No beltran frida eligible based on patient's age to complete this topic
--- OUTSIDE RECORDS SUMMARY | 2024-09-19 05:16 | XMS_ITS | Clinical Summary ---
Author Organization [facility] Address [address] [place] [address] Care Team Providers Care Python Web Developer Name Role Phone Emre Garrido MD Primary Care Provider [phone] Allergies Active Allergy Reactions Criticality Noted Date [...] 1 tablet (100 mcg total) by mouth circus agent before breakfast 2 Active omega-3 fatty acids-fish [...] (01/03/2022): Added automatically from request for surgery [id number] Immunizations Name Administration Dates Next Due Influenza, Quad, Adjuvantate d, Intramuscular 06/10/2021 Influenza, Quadrivalent, Spl it, Preservative Free, Intramuscular 06/08/2020 Influenza, Unspecified 06/19/2014,06/20/2013,08/2011 Pneumococcal Conjugate PCV 13 09/23/2016 Pneumococcal, Unspecified 05/28/2012 Td, adsorbed 05/02/2003 Tdap 06/30/2015 ZOSTER LIVE 07/28/2014 Surgical History Surgery Date Site/Laterality Comments [place] ARTHRP KNE CONDYLE&PLATU MEDIAL&LAT COMPARTMENTS 07/06/2020 Left [facility] KNEE ARTHROSCOPY 08/28/2012 - 08/27/2013 Left meniscectomy HYSTERECTOMY 08/28/1981 - 08/27/1982 NOSE SURGERY COLONOSCOPY Medical History Medical History Date Comments HTN (hypertension) HLD (hyperlipidemia) Hypothyroidism GERD (gastroesophageal reflux disease) Lupus Family History Medical History Relation Name Comments Anesthesia problems Neg Hx Social History Tobacco Use Types Packs/Day Years [...] on file 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 Gender Identity Not on file Sexual Orientation Not on file Obstetrics History Last Filed Vital Signs Vital Sign Reading [...] 01/21/2022 5:13 AM CDT Plan of Treatment Health Maintenance Due Date Last Done Comments Depression Screening 1940 Osteoporosis Screening-Bone Density Scan 1942 Hepatitis B Screening 1960 Well Visit 65+ 2007 Zoster Vaccine (1 of 2) 09/22/2014 07/28/2014 Pneumococcal vaccine 65+ (2 of 2 - PPSV23 or PCV20) 11/18/2016 09/23/2016, 05/28/2012 Fall Risk Assessment 01/21/2023 01/21/2022 Covid-19 Vaccine ( - 2023-2 5 season) 2024 12/03/2021, 06/21/2021, 11/13/2020, Additional history exists Influenza Vaccine (#1) 2024 , 06/08/2020, 06/19/2014, Additional history exists DTaP/Tdap/Td Vaccine (2 - Td or Tdap) 06/30/2025 06/30/2015, 05/02/2003 Insurance MEDICARE RAILROAD Member Subscriber Plan / Payer (Ef fective 2007-Present) Name:Jessica Steele Member ID:[id number] Relation to Subscriber:Self Name:Ivette Jessica Nick Subscriber ID:[id number] Payer ID:[id number] Group ID:Not on file Type:MEDICARE [employer] Address: [address] MEDICARE RAILROAD [employer] Advance Directives For more information, please contact: [phone] Documents on File Type Date Recorded Patient Mica Spreader Expl anation Power of Fraternity House Cook 01/21/2022 5:39 AM Care Teams Python Web Developer Relationship Specialty Start Date End Date Emre Garrido MD [address] [place] [address] PCP - General Internal Medicine 07/21/21
--- OUTSIDE RECORDS SUMMARY | 2024-09-19 05:16 | XMS_ITS | Encounter Summary ---
Author Organization [facility] Address [address] [place] [address] Care Team Providers Care Manager Global Communications Name Role Phone Unavailable Primary Care Provider Unavailabl e Encounter Details Date Type Department Care Team (Late st Contact Info) Description 04/22/2021 Lab Requisition [facility] Care DermPath Lab [address] [facility] [address] [facility], [place] [id number] Yehuda Haas MD [address] [place] [address] Social History Tobacco Use Types Packs/Day Years Used Date Smoking Tobacco: Never Assessed Sex and Gender Information Value Date Recorded Sex Assigned at Not on file Gender Identity Not on file Sexual Orientation Not on file documented as of this encounter Plan of Treatment Not on file documented as of this encounter Procedures Procedure Name Priority Date/Time Associated Diagnosis Comments DERMATOPATHOLOGY Routine 04/21/2021 12:0 0 AM CDT documented in this encounter Results * DERMATOPATHOLOGY (04/21/2021 12:00 AM CDT) Case Report Dermatopathology Report ? Case: [id number] ? Authorizing Provider: ??Yehuda Haas MD ?Collected: ? 04/21/2021 12:00 AM ? Ordering Location: ? [facility] ?Received: ?04/22/2021 11:11 AM [...] that resembles normal epidermis. 1 2:57 PM CDT DERMATOPATHOLOGY LABORATORY Disclaimer An external and internal positive and negative controls are appropriate for the histochemical, immunohistochemical and immunofluorescence stain(s) in this case (if any), except where stated explicitly. The performance characteristics of the stain(s) cited in this report were developed and its performance characteristic determined by the Dermatopathology Laboratory at [facility], directed by Dr. Denisse Munroe. These tests need not be, and therefore are not, approved by the [place] Food and Drug Administration. The tests are used for clinical purposes. Billing Codes Specimen Charges Stain Charges 13228 68111 1 1 1 2:57 PM CDT DERMATOPATHOLOGY LABORATORY Embedded Images 1 2:57 PM CDT DERMATOPATHOLOGY LABORATORY Pathology/Cytology TISSUE SPECIMEN FROM SKIN / Unknown 04/21/2021 04/22/2021 11:11 AM CDT Miscellaneous samples (specimen) TISSUE SPECIMEN FROM SKIN / Unknown 04/21/2021 04/22/2021 11:11 AM CDT Yehuda Haas MD LAB - PATHOLOGY/CYTO LOGY ORDERABLES DERMATOPATHOLOGY LABORATORY [facility] - Department of Dermatology [address], [address] [phone] documented in this encounter Visit Diagnoses Not on filedocumented in this encounter
== END 2024-09-13 08:06 | disposition home or self-care (01) ==
PROVIDERS: PCP Internal Medicine; Visit Provider Internal Medicine
DX: R05.3 Chronic cough (principal)
CPT/HCPCS: 74240; 77063; 77067

== ENCOUNTER 2024-09-13 14:32 | Outpatient (CLI) | payer MEDICARE, SELFPAY ==
--- NOTE | ~2024-09-13 | MM_ITS ---
EXAMINATION: MM screening tatum BI w su HISTORY: Screening TECHNIQUE: Craniocaudal and mediolateral oblique 3-D tomosynthesis images were obtained and synthetic 2-D images were generated. CAD analysis was submitted and interpreted. COMPARISON: Comparison to multiple prior studies sequentially, with oldest reviewed study dated 10/2017. BREAST PARENCHYMAL COMPOSITION: Dense: The breasts are extremely dense, which lowers the sensitivity of mammography. FINDINGS: There is no evidence of suspicious mass, calcification, or architectural distortion to sugg est malignancy in either breast. There has been no suspicious interval change. IMPRESSION: 1. No mammographic evidence of malignancy. 2. Recommend routine screening mammography in one year. BI-RADS Category 1: Negative Reviewed, dictated and finalized at location A. BLEACHER
== END 2024-09-13 14:33 | disposition home or self-care (01) ==
LOC: ANHIMG 14:35
PROVIDERS: PCP Internal Medicine; Visit Provider Internal Medicine
DX: Z12.31 Encounter for screening mammogram for malignant neoplasm of breast (principal)
CPT/HCPCS: 77063; 77067

== ENCOUNTER 2024-09-16 08:01 | Outpatient (CLI) | payer MEDICARE, SELFPAY ==
[2024-09-16 08:20] LABS: Basophils Absolute Auto 0.1 K/mm3 (0.0-0.1); Basophils Percent Auto 1.1 % (0.2-1.2); Eosinophils Absolute Auto 0.1 K/mm3 (0-0.3); Eosinophils Percent Auto 1.3 % (0-4.4); Hematocrit 36.4 % (37.0-47.0); Hemoglobin 12.1 g/dL (12.0-15.0); Lymphocytes Absolute Auto 1.54 K/mm3 (0.9-3.2); Lymphocytes Percent Auto 32.6 % (18.3-44.2); Mean Corpuscular HGB Conc 33.2 g/dl (32-36); Mean Corpuscular Hemoglobin 31.1 pg (26-34); Mean Corpuscular Volume 93.6 fl (80-100); Mean Platelet Volume 9.1 fl (7.4-10.4); Monocytes Absolute Auto 0.3 K/mm3 (0.1-0.6); Monocytes Percent Auto 7.2 % (2.6-8.5); Neutrophils Absolute Auto 2.7 K/mm3 (1.3-6.7); Neutrophils Percent Auto 57.8 % (45.5-73.1); Platelet Count Result 147 k/mm3 (150-375); Red Blood Count 3.89 M/mm3 (4.2-5.4); Red Cell Distribution Width 12.9 % (11.5-14.5); White Blood Count 4.7 K/mm3 (4.5-10.0)
[2024-09-16 08:50] LABS: Alanine Aminotransferase 13 U/L (6-35); Albumin Level 4.4 g/dL (3.5-5.1); Alkaline Phosphatase 46 U/L (38-126); Anion Gap 5 mmol/L (4-12); Aspartate Amino Transferase 22 U/L (14-36); Bilirubin,Total 0.6 mg/dL (0.2-1.3); Blood Urea Nitrogen 13 mg/dL (7-17); Calcium 9.6 mg/dL (8.4-10.2); Carbon Dioxide 29 mmol/L (22-30); Chloride 103 mmol/L (98-107); Cholesterol 190 mg/dL (0-200); Estimated Glomerular Filt Rate > 60; Glucose 99 mg/dL (65-110); HDL Direct 102 mg/dL; Potassium 4.2 mmol/L (3.4-5.0); Sodium 137 mmol/L (137-145); Triglycerides 78 mg/dL (<150)
[2024-09-16 09:02] LABS: LDL Cholesterol Direct 69 mg/dL
[2024-09-16 09:06] LABS: Free T4 Free Thyroxine 1.43 ng/dL (0.78-2.19)
--- OUTSIDE RECORDS SUMMARY | 2024-09-19 11:43 | XMS_ITS | Referral Summary ---
Author Organization [facility] Address [address] [place] [address] Care Team Providers Care Instructor Nurse Name Role Phone Unavailable Primary Care Provider Unavailabl e Source Comments [facility],non-owned Affiliates and Associated Physician Practices is amultiple site organization consisting of ambulatory clinics and hospital sitesin [place], [place], [place] and [place]. This disclosure is being madepursuant to the Care Everywhere program and may not contain all information available regarding this patient. Last updated 18.[facility] [employer] Social History Tobacco Use Types Packs/Day Years Used Date Smoking Tobacco: Never Assessed Sex and Gender Information Value Date Recorded Sex Assigned at Not on file Gender Identity Not on file Sexual Orientation Not on file Plan of Treatment Not on file
--- OUTSIDE RECORDS SUMMARY | 2024-09-19 11:43 | XMS_ITS | Clinical Summary ---
Author Organization [facility] Address [address] [place] [address] Care Team Providers Care Drawing Press Operator Name Role Phone Emre Garrido MD Primary Care Provider [phone] Allergies Active Allergy Reactions Criticality Noted Date [...] 1 tablet (100 mcg total) by mouth container repairer before breakfast 2 Active omega-3 fatty acids-fish [...] (01/03/2022): Added automatically from request for surgery [id number] Immunizations Name Administration Dates Next Due Influenza, Quad, Adjuvantate d, Intramuscular 06/10/2021 Influenza, Quadrivalent, Spl it, Preservative Free, Intramuscular 06/08/2020 Influenza, Unspecified 06/19/2014,06/20/2013,08/2011 Pneumococcal Conjugate PCV 13 09/23/2016 Pneumococcal, Unspecified 05/28/2012 Td, adsorbed 05/02/2003 Tdap 06/30/2015 ZOSTER LIVE 07/28/2014 Surgical History Surgery Date Site/Laterality Comments [place] ARTHRP KNE CONDYLE&PLATU MEDIAL&LAT COMPARTMENTS 07/06/2020 Left [facility] KNEE ARTHROSCOPY 08/28/2012 - 08/27/2013 Left meniscectomy [...] on file 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 Gender Identity Not on file Sexual Orientation [...] Payer (Ef fective 2007-Present) Name:Jessica Steele Member ID:[id number] Relation to Subscriber:Self Name:Ivette Jessica Nick Subscriber ID:[id number] Payer ID:[id number] Group ID:Not on file Type:MEDICARE [employer] ([employer]) Address: [address] MEDIC[address] RAILROAD A[employer] Advance Directives For more information, please contact: [phone] Documents on File Type Date Recorded 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
--- OUTSIDE RECORDS SUMMARY | 2024-09-19 11:43 | XMS_ITS | Clinical Summary ---
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
--- OUTSIDE RECORDS SUMMARY | 2024-09-19 11:43 | XMS_ITS | Referral Summary ---
Author Organization 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
--- OUTSIDE RECORDS SUMMARY | 2024-09-19 11:43 | XMS_ITS | Clinical Summary ---
Author Organization [facility] Address [address] [place] [address] Care Team Providers Care Digital Analytics Manager Name Role Phone Unavailable Primary Care Provider Unavailabl e Source Comments [facility] [employer],non-owned Affiliates and Associated Physician Practices is amultiple site organization consisting of ambulatory clinics and hospital sitesin [place], [place], [place] and [place]. This disclosure is being madepursuant to the Care Everywhere program and may not contain all informatio navailable regarding this patient. Last updated 18.[facility] [employer] Social History Tobacco Use Types Packs/Day Years [...]
--- OUTSIDE RECORDS SUMMARY | 2024-09-19 11:43 | XMS_ITS | Encounter Summary ---
Author Organization [facility] Address [address] [place] [address] Care Team Providers Care Job Counselor Name Role Phone Unavailable Primary Care Provider Unavailabl e Encounter Details Date Type Department Care Team (Late st Contact Info) Description 04/22/2021 Lab Requisition [facility] Care DermPath Lab [address] [facility], [place] [phone] Yehuda Haas MD [address] [place] [address] Social History Tobacco Use Types [...] CDT) Case Report Dermatopathology Report ? Case: [id number] ? Authorizing Provider: ??Yehuda Haas MD ?Collected: [...] characteristic determined by the Dermatopathology Laboratory at [facility], directed by Dr. Denisse Munroe. These tests need not be, and therefore are not, approved by the [place] Food and Drug Administration. The tests are used for clinical purposes. Billing Codes Specimen Charges Stain Charges 01495 27452 1 1 1 2:57 PM CDT DERMATOPATHOLOGY LABORATORY Embedded Images 1 2:57 PM CDT DERMATOPATHOLOGY LABORATORY Pathology/Cytology TISSUE SPECIMEN FROM SKIN / Unknown 04/21/2021 04/22/2021 11:11 AM CDT Miscellaneous samples (specimen) TISSUE SPECIMEN FROM SKIN / Unknown 04/21/2021 04/22/2021 11:11 AM CDT Yehuda Haas MD LAB - PATHOLOGY/CYTO LOGY ORDERABLES DERMATOPATHOLOGY LABORATORY [facility] - Department of Dermatology [address], [address] [phone] documented in this encounter Visit Diagnoses Not on filedocumented in this encounter
--- OUTSIDE RECORDS SUMMARY | 2024-09-19 11:43 | XMS_ITS | Patient Health Summary ---
Author Organization [facility] Address [address] [place] [address] Care Team Providers Care It Infrastructure Consultant Name Role Phone Unavailable Primary Care Provider Unavailabl e Note from [facility],non-owned Affiliates and Associated Physician Practices is amultiple site organization consisting of ambulatory clinics and hospital sitesin [place], [place], [place] and [place]. This disclosure is being madepursuant to the Care Everywhere program and may not contain all information available regarding this patient. Last updated 18.[facility] Social History Tobacco Use Types Packs/Day Years Used Date Smoking Tobacco: Never Assessed Sex and Gender Information Value Date Recorded Sex Assigned at Not on file Gender Identity Not on file Sexual Orientation Not on file Procedures * DERMATOPATHOLOGY(Performed 04/21/2021) Results * DERMATOPATHOLOGY (04/21/2021 12:00 AM CDT) Case Report Dermatopathology Report ? Case: [id number] ? Authorizing Provider: ??Yehuda Haas MD ?Collected: ? 04/21/2021 12:00 AM ? Ordering Location: ? [facility] Care DermPath Lab ?Received: ?04/22/2021 11:11 AM [...] characteristic determined by the Dermatopathology Laboratory at [facility], directed by Dr. Denisse Munroe. These tests need not be, and therefore are not, approved by the [place] Food and Drug Administration. The tests are used for clinical purposes. Billing Codes Specimen Charges Stain Charges 77288 83503 1 1 1 2:57 PM CDT DERMATOPATHOLOGY LABORATORY Embedded Images 1 2:57 PM CDT DERMATOPATHOLOGY LABORATORY Pathology/Cytology TISSUE SPECIMEN FROM SKIN / Unknown 04/21/2021 04/22/2021 11:11 AM CDT Miscellaneous samples (specimen) TISSUE SPECIMEN FROM SKIN / Unknown 04/21/2021 04/22/2021 11:11 AM CDT Yehuda Haas MD LAB - PATHOLOGY/CYTO LOGY ORDERABLES DERMATOPATHOLOGY LABORATORY [facility] - Department of Dermatology [facility] [address] [place] [address], [address] [phone]
--- OUTSIDE RECORDS SUMMARY | 2024-09-19 11:43 | XMS_ITS | Continuity of Care Document ---
Author Organization [facility] Address [address] [place] [address] Phone Care Team Providers Care Bleaching Supervisor Name Role Phone [facility] Unavailable Unavail able Sickage, Luna Unavailable Unavailable Procedures Procedure Date BF Polycarb Sphcyl Modale To +/-4d .12-2d Frame - Up To [...] Diagnoses Date Provider Providers Copied on Encounter [facility], [address] [place] [address] [address], [place], [place], [address], [place] tel:[phone] [facility] No Information 2-201 0 [facility] . [address] [facility], [address], [place], [place], [address], [place]. tel:[phone] Referring Provider: Beto Romero, [address], [place], [place], [facility]. tel:[phone] sulting Provider: Luna Copeland, [address] [facility], [place], [place], [facility]. tel:[phone] Office/outpat ient Visit, [facility], [address], [place], [place], [address], [place] tel:[phone] [facility] No Information 5-201 0 Zakia Pérez. [address] , [address], [place], [place], [facility], [place]. tel:[phone] [facility], [address], [place], [place], [address], [place] tel:[phone] [facility] No Information 3 1-200 9 Zakia Pérez. [facility] , [address], [place], [place], [facility], [place]. tel:[phone] [facility], [address] [place] [address] [address], [place], [place], [address], [place] tel:[phone] [facility] No Information 0-200 9 Zakia Pérez. [address] , [address], [place], [place], [facility], [place]. tel:[phone] Referring Provider: Beto Romero, [address], [place], [address]. tel:[phone] [facility], [address] [place] [address] [address], [place], [place], [address], [place] tel:[phone] [facility] No Information 1 6-200 9 Zakia Pérez. [address] , [address], [place], [facility], [place]. tel:[phone] Referring Provider: Gabrielle C[address], [place], [address]. tel:[phone] [facility], [address], [place], [place], [address], [place] tel:[phone] [facility] No Information Apr-0 9-200 9 Adrien Tao. [address] [facility], [place], [facility], [place]. tel:[phone] Referring Provider: Beto Romero, [address], [place], [facility]. tel:[phone] [facility], [address] [place] [address] [address], [place], [place], [address], tel:[phone] [facility] No Information Apr-0 6-200 9 Zakia Pérez. [address], [address], [place], [facility], [place]. tel:[phone] Referring Provider: Beto Romero, [address], [place], [facility]. tel:[phone] Office/outpat ient Visit, [facility], [address], [place], [place], [address], [place] tel:[phone] [facility] No Information Mar-0 9-200 9 Zakia Pérez. [address], [address], [place], [facility], [place]. tel:[phone] Referring Provider: Gabrielle Condon [address], [place], [facility]. tel:[phone] [facility], [address], [place], [place], [address], [place] tel:[phone] [facility] No Information Donnie-2 4-200 8 Zakia Pérez. [address], [address], [place], [address], [place]. tel:[phone] Referring Provider: Beto Romero, [address] [facility] [address], [place], [address]. tel:[phone] [facility], [address], [place], [place], [address], [place] tel:[phone] [facility] No Information Jan-2 0-200 7 Zakia Pérez. [address] [facility] [address] , [address], [place], [address], [place]. tel:[phone] Family History Family Member Type Diagnosis Age [...]
== END 2024-09-16 08:02 | disposition home or self-care (01) ==
LOC: ANHLAB 08:02
PROVIDERS: PCP Internal Medicine; Visit Provider Internal Medicine
DX: E03.9 Hypothyroidism, unspecified (principal); I10 Essential (primary) hypertension; E78.5 Hyperlipidemia, unspecified
CPT/HCPCS: 36415; 80053; 80061; 84439; 84443; 85025

== ENCOUNTER 2024-09-19 08:35 | Outpatient (CLI) | payer MEDICARE, SELFPAY | END 2024-09-19 08:36 | disposition home or self-care (01) | LOC: ANHAUDIO 08:36 | PROVIDERS: PCP Internal Medicine; Visit Provider Internal Medicine | DX: H90.41 Sensorineural hearing loss, unilateral, right ear, with unrestricted hearing on the contralateral side (principal) | CPT/HCPCS: 92557; 92567 ==

== ENCOUNTER 2024-11-06 10:55 | Outpatient (CLI) | payer MEDICARE, SELFPAY ==
--- NOTE | ~2024-11-06 | XR_ITS ---
EXAMINATION: XR chest 2V DATE: 11/06/2024 11:18 INDICATION: Cough, unspecified. TECHNIQUE: Frontal and lateral views of the chest were obtained. COMPARISON: Chest 2 views 08/14/2024, CT abdomen and pelvis 10/27/2020 FINDINGS: There are airspace opacities in basilar left lower lobe, consistent with pneumonia. There i s a trace left pleural effusion. No pneumothorax. The heart size is normal. IMPRESSION: 1. Left lower lobe pneumonia. Reviewed, dictated and finalized at location B.
[2024-11-06 11:22] LABS: Basophils Percent Auto 0.3 % (0.2-1.2); Eosinophils Percent Auto 0.1 % (0-4.4); Hemoglobin 10.5 g/dL (12.0-15.0); Immature Granulocyte Absolute 0.06 K/mm3 (0.00-0.031); Immature Granulocyte Percent A 0.4 % (0-0.5); Lymphocytes Percent Auto 5.4 % (18.3-44.2); Mean Corpuscular HGB Conc 33.9 g/dl (32-36); Mean Corpuscular Hemoglobin 31.2 pg (26-34); Mean Platelet Volume 8.8 fl (7.4-10.4); Monocytes Absolute Auto 1.4 K/mm3 (0.1-0.6); Monocytes Percent Auto 9.8 % (2.6-8.5); Neutrophils Absolute Auto 12.4 K/mm3 (1.3-6.7); Platelet Count Result 236 k/mm3 (150-375); Red Blood Count 3.37 M/mm3 (4.2-5.4); White Blood Count 14.8 K/mm3 (4.5-10.0)
[2024-11-06 11:59] LABS: Influenza A QL RT-PCR Negative (Negative); Influenza B QL RT-PCR Negative (Negative); RSV RNA, RT-PCR Negative (Negative); SARS-CoV-2 RNA PCR Negative (Negative)
--- OUTSIDE RECORDS SUMMARY | 2024-11-06 12:35 | XMS_ITS | Patient Health Summary ---
Author Organization [facility] Address [address] [place] [address] Care Team Providers Care Rand Cementer Name Role Phone Unavailable Primary Care Provider Unavailabl e Note from [facility],non-owned Affiliates and Associated Physician Practices is amultiple site organization consisting of ambulatory clinics and hospital sitesin [place], [place], [place] and [place]. This disclosure is being madepursuant to the Care Everywhere program and may not contain all information available regarding this patient. Last updated 18.[facility] Social History Tobacco Use Types Packs/Day Years Used Date Smoking Tobacco: Never Assessed Sex and Gender Information Value Date Recorded Sex Assigned at Not on file Gender Identity Not on file Sexual Orientation Not on file Procedures * DERMATOPATHOLOGY(Performed 04/21/2021) Results * DERMATOPATHOLOGY (04/21/2021 12:00 AM CDT) Case Report Dermatopathology Report Case: [id number] Authorizing Provider: Yehuda Haas MD Collected: 04/21/2021 12:00 AM Ordering Location: [facility] DermPath Lab Received: 04/22/2021 11:11 AM Pathologist: Sanjiv Munroe MD Specimens: A) - Skin, left lower melolabial fold B) - Skin, left latreal chin crease 1 2:57 PM CDT DERMATOPATHOLOGY LABORATORY Final Diagnosis Specimen A. SKIN, left lower melolabial fold: MILIUM (L72.8) Specimen B. SKIN, left latreal chin crease: MILIUM (L72.8) 1 2:57 PM CDT DERMATOPATHOLOGY LABORATORY Clinical History A-B: R/O BCC 1 2:57 PM CDT DERMATOPATHOLOGY LABORATORY Gross Description Specimen A: Received [...] mm, bisected. Jar 0. 1 2:57 PM CDT DERMATOPATHOLOGY LABORATORY Microscopic Description Specimen A. SKIN, [...] characteristic determined by the Dermatopathology Laboratory at [facility], directed by Dr. Denisse Munroe. These tests need not be, and therefore are not, approved by the [place] Food and Drug Administration. The tests are used for clinical purposes. Billing Codes Specimen Charges Stain Charges 28574 87921 1 1 1 2:57 PM CDT DERMATOPATHOLOGY LABORATORY Embedded Images 2:57 PM CDT DERMATOPATHOLOGY LABORATORY Pathology/Cytology TISSUE SPECIMEN FROM SKIN / Unknown 04/21/2021 04/22/2021 11:11 AM CDT Miscellaneous samples (specimen) TISSUE SPECIMEN FROM SKIN / Unknown 04/21/2021 04/22/2021 11:11 AM CDT Yehuda Haas MD LAB - PATHOLOGY/CYTO LOGY ORDERABLES DERMATOPATHOLOGY LABORATORY [facility] - Department of Dermatology [address], [address] Floor [address] [phone]
--- OUTSIDE RECORDS SUMMARY | 2024-11-06 12:35 | XMS_ITS | Clinical Summary ---
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
--- OUTSIDE RECORDS SUMMARY | 2024-11-06 12:35 | XMS_ITS | Referral Summary ---
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 Gender Identity Not on file Sexual Orientation Not on file Last Filed Vital Signs Vital Sign Reading Time Taken Comments Blood Pressure 134/71 01/21/2022 8:20 AM CDT Pulse 68 01/21/2022 8:25 AM CDT Temperature 35.3 C (95.54 F) 01/21/2022 8:20 AM CDT Respiratory Rate 49 01/21/2022 8:25 AM CDT Oxygen Saturation 97% 01/21/2022 8:25 AM CDT Inhaled Oxygen Concentration - - Weight 54.3 kg (119 lb 12.8 oz) 01/21/2022 5:13 AM CDT Height 157.5 cm (5' 2 ) 01/21/2022 5:13 AM CDT Body Mass Index 21.91 01/21/2022 5:13 AM CDT Plan of Treatment Not on file Insurance MEDICARE RAILROAD [facility] MEDICARE RAILROAD [facility] Advance Directives For more information, please contact: [phone] Documents on File Type Date Recorded 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
--- OUTSIDE RECORDS SUMMARY | 2024-11-06 12:35 | XMS_ITS | Clinical Summary ---
Author Organization [facility] [employer] Address [address] [facility] [place] [address] Care Team Providers Care Loading Checker Name Role Phone Unavailable Primary Care Provider Unavailabl e Source Comments [facility] [employer]non-owned Affiliates and Associated Physician Practices is amultiple site organization consisting of ambulatory clinics and hospital sitesin [place], [place], [place] and [place]. This disclosure is being madepursuant to the Care Everywhere program and may not contain all information available regarding this patient. Last updated 18.[facility] [employer] Social History Tobacco Use Types Packs/Day Years Used Date Smoking Tobacco: Never Assessed Sex and Gender Information Value Date Recorded Sex Assigned at Not on file Gender Identity Not on file Sexual Orientation Not on file Plan of Treatment Health Maintenance Due Date Last Done Comments BONE DENSITY TESTING 1940 MEDICARE AWV 12 MONTHS 1940 DTAP/TDAP/TD VACCINES (1 - [...] to complete this topic MENINGOCOCCAL (Group B) VACC INE SHARED DECISION-MAKING Aged Out No longer eligibl e based on patient's age to complete this topic MENINGOCOCCAL GROUPS A/C/Y/W VACCINE Aged Out No longer eligible b ased on patient's age to complete this topic
--- OUTSIDE RECORDS SUMMARY | 2024-11-06 12:35 | XMS_ITS | Encounter Summary ---
Author Organization [facility] Address [address] [facility] [address] Care Team Providers Care Director Asset Name Role Phone Unavailable Primary Care Provider Unavailabl e Encounter Details Date Type Department Care Team (Late st Contact Info) Description 04/22/2021 Lab Requisition [facility] DermPath Lab [address] [facility] [place] [phone] Yehuda Haas MD [address] [place] [address] Social History Tobacco Use Types [...] AM CDT) Case Report Dermatopathology Report Case: [id number] Authorizing Provider: Yehuda Haas MD Collected: 04/21/2021 12:00 AM Ordering Location: [facility] DermPath Lab Received: 04/22/2021 11:11 AM Pathologist: Sanjiv Munroe MD Specimens: A) - Skin, left lower melolabial fold B) - Skin, left latreal chin crease 2:57 PM CDT DERMATOPATHOLOGY LABORATORY Final Diagnosis Specimen A. SKIN, left lower melolabial fold: MILIUM (L72.8) Specimen B. SKIN, left latreal chin crease: MILIUM (L72.8) 2:57 PM CDT DERMATOPATHOLOGY LABORATORY Clinical History [...] purposes. Billing Codes Specimen Charges Stain Charges 19575 [id number] 1 1 1 2:57 PM CDT DERMATOPATHOLOGY LABORATORY Embedded Images 1 2:57 PM CDT DERMATOPATHOLOGY LABORATORY Pathology/Cytology TISSUE SPECIMEN FROM SKIN / Unknown 04/21/2021 04/22/2021 11:11 AM CDT Miscellaneous samples (specimen) TISSUE SPECIMEN FROM SKIN / Unknown 04/21/2021 04/22/2021 11:11 AM CDT Yehuda Haas MD LAB - PATHOLOGY/CYTO LOGY ORDERABLES DERMATOPATHOLOGY LABORATORY [facility] - Department of Dermatology [facility] [facility], 3rd Floor [address] [phone] documented in this encounter Visit Diagnoses Not on filedocumented in this encounter
--- OUTSIDE RECORDS SUMMARY | 2024-11-06 12:35 | XMS_ITS | Referral Summary ---
Author Organization [facility] Address [address] [place] [address] Care Team Providers Care Examination Scorer Name Role Phone Unavailable Primary Care Provider Unavailabl e Source Comments [facility],non-owned Affiliates and Associated Physician Practices is amultiple site organization consisting of ambulatory clinics and hospital sitesin [place], [place], [place] and [place]. This disclosure is being madepursuant to the Care Everywhere program and may not contain all information available regarding this patient. Last updated 18.[facility] [employer] Social History Tobacco Use Types Packs/Day Years Used Date Smoking Tobacco: Never Assessed Sex and Gender Information Value Date Recorded Sex Assigned at Not on file Gender Identity Not on file Sexual Orientation Not on file Plan of Treatment Not on file
--- OUTSIDE RECORDS SUMMARY | 2024-11-06 12:35 | XMS_ITS | Clinical Summary ---
Author Organization [facility] Address [address] [place] [address] Care Team Providers Care Librarian Name Role Phone Emre Garrido MD Primary Care Provider [phone] Allergies Active Allergy Reactions Criticality Noted Date [...] 1 tablet (100 mcg total) by mouth sharples machine operator before breakfast 2 Active omega-3 fatty acids-fish [...] (01/03/2022): Added automatically from request for surgery [id number] Immunizations Immunization Administration Dates Next Due Influenza, Quad, Adjuvantate d, Intramuscular 06/10/2021 Influenza, Quadrivalent, Spl it, Preservative Free, Intramuscular 06/08/2020 Influenza, Unspecified 06/19/2014,06/20/2013,08/2011 Pneumococcal Conjugate PCV 13 09/23/2016 Pneumococcal, Unspecified 05/28/2012 Td, adsorbed 05/02/2003 Tdap 06/30/2015 ZOSTER LIVE 07/28/2014 Surgical History Surgery Date Site/Laterality Comments [place] ARTHRP KNE CONDYLE&PLATU MEDIAL&LAT COMPARTMENTS 07/06/2020 Left [facility] KNEE ARTHROSCOPY 08/28/2012 - 08/27/2013 Left meniscectomy [...] on file 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 Advance Directives For more information, please contact: [phone] Documents on File Type Date Recorded Patient Glass Tube Bender Expl anation Power of Health And Social Care Teacher 01/21/2022 5:39 AM Care Teams Librarian Relationship Specialty Start Date End Date Emre Garrido MD [address] [facility] [address] [place] [address] PCP - General Internal Medicine 07/21/21
--- OUTSIDE RECORDS SUMMARY | 2024-11-06 12:35 | XMS_ITS | Continuity of Care Document ---
Author Organization [facility] Address [address] [place] [address] Phone Care Team Providers Care Peer Specialist Name Role Phone [facility] Unavailable Unavail able Sickage, Luna Unavailable Unavailable Procedures Procedure Date BF Polycarb Sphcyl [place] To +/-4d .12-2d Frame - Up To [...] Diagnoses Date Provider Providers Copied on Encounter Formerly [facility], [address] [place] [address] [address], [place], [place], [address], [place] tel:[phone] [facility] No Information 2-201 0 [facility] . [address] [facility], [address], [place], [place], [address], [place]. tel:[phone] Referring Provider: Beto Romero, [address], [place], [place], [facility]. tel:[phone] sulting Provider: Luna Copeland, [address] [facility], [place], [place], [facility]. tel:[phone] Office/outpat ient Visit, Est [facility], [address], [place], [place], [address], [place] tel:[phone] [facility] No Information 5-201 0 Zakia Pérez. [address] , [address], [place], [place], [facility], [place]. tel:[phone] Former[facility], [address], [place], [place], [address], [place] tel:[phone] [facility] No Information 3 1-200 9 Zakia Pérez. [facility] , [address], [place], [facility], [place]. tel:[phone] [facility], [address] [place] [address] [address], [place], [place], [address], [place] tel:[phone] [facility] No Information 0-200 9 Zakia Pérez. [address] , [address], [place], [facility], [place]. tel:[phone] Referring Provider: Beto Romero, [address], [place], [address]. tel:[phone] [facility], [address] [place] [address] [address], [place], [place], [address], [place] tel:[phone] [facility] No Information 1 6-200 9 Zakia Pérez. [address] , [address], [place], [facility], [place]. tel:[phone] Referring Provider: [address]ri[address], [place], [address]. tel:[phone] [facility], [address], [place], [place], [address], [place] tel:[phone] [facility] No Information Apr-0 9-200 9 Adrien Tao. [address] [facility], [place], [facility], [place]. tel:[phone] Referring Provider: Beto Romero, [address], [place], [facility]. tel:[phone] [facility], [address] [place] [address] [address], [place], [place], [address], tel:[phone] [facility] No Information Apr-0 6-200 9 Zakia Pérez. [address], [address], [place], [facility], [place]. tel:[phone] Referring Provider: Beto Romero, [address], [place], [facility]. tel:[phone] Office/outpat ient Visit, [facility], [address], [place], [place], [address], [place] tel:[phone] [facility] No Information Mar-0 9-200 9 Zakia Pérez. [address], [address], [place], [facility], [place]. tel:[phone] Referring Provider: Gabrielle Condon [address], [place], [facility]. tel:[phone] [facility], [address], [place], [place], [address], [place] tel:[phone] [facility] No Information Donnie-2 4-200 8 Zakia Pérez. [address], [address], [place], [address], [place]. tel:[phone] Referring Provider: Beto Romero, [address], [place], [address]. tel:[phone] [facility], [address], [place], [place], [address], [place] tel:[phone] [facility] No Information Jan-2 0-200 7 Zakia Pérez. [address] , [address], [place], [address], [place]. tel:[phone] Family History Family Member Type Diagnosis Age At Onset No Information Payers Payer name Insurance type Covered green party ID Authoriza tion(s) No Information Social [...]
== END 2024-11-06 10:56 | disposition home or self-care (01) ==
PROVIDERS: PCP Internal Medicine; Visit Provider Internal Medicine
DX: R50.9 Fever, unspecified (principal); R05.9 Cough, unspecified; Z20.822 Contact with and (suspected) exposure to COVID-19; J18.9 Pneumonia, unspecified organism
CPT/HCPCS: 36415; 71046; 85025; 87637

== ENCOUNTER 2024-11-13 09:08 | Outpatient (CLI) | payer MEDICARE, SELFPAY ==
--- NOTE | ~2024-11-13 | XR_ITS ---
Clinical Indication: Cough PA and lateral views of the chest: Comparison: 11/06/2024 Findings: There is focal retrocardiac airspace disease. Right lung clear. Possible COPD. Cardiomedia stinal silhouette is within normal limits. Bones and soft tissues are unremarkable. Impression: Retrocardiac atelectasis versus pneumonia. Possible COPD. Reviewed, dictated and finalized at location . Impression: Retrocardiac atelectasis versus pneumonia. Possible COPD.
--- OUTSIDE RECORDS SUMMARY | 2024-11-13 10:00 | XMS_ITS | Referral Summary ---
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 Gender Identity Not on file Sexual Orientation [...] Treatment Not on file Insurance MEDICARE RAILROAD [facility] MEDICARE RAILROAD [facility] Advance Directives For more information, please contact: [phone] Documents on File Type Date Recorded Patient Lab Technologist Expl anation Power of Wedding Transportation Driver 01/21/2022 5:39 AM Care Teams Wind Farm Support Specialist Relationship Specialty Start Date End Date Emre Garrido MD [address] [facility] [address] [facility] [address] [place] [address] PCP - General Internal Medicine 07/21/21
--- OUTSIDE RECORDS SUMMARY | 2024-11-13 10:00 | XMS_ITS | Clinical Summary ---
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
--- OUTSIDE RECORDS SUMMARY | 2024-11-13 10:00 | XMS_ITS | Continuity of Care Document ---
Author Organization [facility] Address [address] [place] [address] Phone Care Team Providers Care Chemistry Faculty Member Name Role Phone [facility] Unavailable Unavail able Sickage, Luna Unavailable Unavailable Procedures Procedure Date BF Polycarb Sphcyl [place] To +/-4d .12-2d Frame - Up To [...] Diagnoses Date Provider Providers Copied on Encounter [facility], [address] [place] [address] [address], [place], [place], [address], [place] tel:[phone] [facility] No Information 2-201 0 [facility] . [address] [facility], [address], [place], [place], [address], [place]. tel:[phone] Referring Provider: Beto Romero, [address], [place], [place], [facility]. tel:[phone] sulting Provider: Luna Copeland, [address] [facility], [place], [facility]. tel:[phone] Office/outpat ient Visit, Est [facility], [address], [place], [place], [address], [place] tel:[phone] [facility] No Information 5-201 0 Zakia Pérez. [address] , [address], [place], [facility], [place]. tel:[phone] [facility], [address], [place], [place], [address], [place] tel:[phone] [facility] No Information 3 1-200 9 Zakia Pérez. Formerly [facility] , [address], [place], [facility], [place]. tel:[phone] [facility], [address] [place] [address] [address], [place], [place], [address], [place] tel:[phone] [facility] No Information 0-200 9 Zakia Pérez. [address] , [address], [place], [facility], [place]. tel:[phone] Referring Provider: Beto Romero, [address], [place], [address]. tel:[phone] [facility], [address] [place] [address] [address], [place], [place], [address], [place] tel:[phone] [facility] No Information 1 6-200 9 Zakia Pérez. [address] , [address], [place], [facility], [place]. tel:[phone] Referring Provider: Gabrielle Condon [address], [place], [address]. tel:[phone] [facility], [address], [place], [place], [address], [place] tel:[phone] [facility] No Information Apr-0 9-200 9 Adrien Tao. [address] [facility], [place], [facility], [place]. tel:[phone] Referring Provider: Beto Romero, [address], [place], [facility]. tel:[phone] [facility], [address] [place] [address] [address], [place], [place], [address], tel:[phone] [facility] No Information Apr-0 6-200 9 Zakia Pérez. [address] Villag[address], [address], [place], [facility], [place]. tel:[phone] Referring Provider: Beto Romero, [address], [place], [facility]. tel:[phone] Office/outpat ient Visit, [facility], [address], [place], [place], [address], [place] tel:[phone] [facility] No Information Mar-0 9-200 9 Zakia Pérez. [address], [address], [place], [facility], [place]. tel:[phone] Referring Provider: Gabrielle Condon [address], [place], [facility]. tel:[phone] [facility], [address], [place], [place], [address], [place] tel:[phone] [facility] No Information Donnie-2 4-200 8 Zakia Pérez. [address], [address], [place], [address], [place]. tel:[phone] Referring Provider: Beto Romero, [address] [facility] [address], [place], [address]. tel:[phone] [facility], [address], [place], [place], [address], [place] tel:[phone] [facility] No Information Jan-2 0-200 7 Zakia Pérez. [address] [facility] , [address], [place], [address], [place]. tel:[phone] Family History Family Member Type Diagnosis Age At Onset No Information Payers Payer name Insurance type Covered alliance party ID Authoriza tion(s) No Information Social [...]
--- OUTSIDE RECORDS SUMMARY | 2024-11-13 10:00 | XMS_ITS | Clinical Summary ---
Author Organization [facility] Address [address] [place] [address] Care Team Providers Care Mucking Machine Operator Name Role Phone Emre Garrido MD Primary Care Provider [phone] Allergies Active Allergy Reactions Criticality Noted Date [...] 1 tablet (100 mcg total) by mouth network technical analyst before breakfast 2 Active omega-3 fatty acids-fish [...] (01/03/2022): Added automatically from request for surgery [id number] Immunizations Immunization Administration Dates Next Due Influenza, Quad, Adjuvantate d, Intramuscular 06/10/2021 Influenza, Quadrivalent, Spl it, Preservative Free, Intramuscular 06/08/2020 Influenza, Unspecified 06/19/2014,06/20/2013,08/2011 Pneumococcal Conjugate PCV 13 09/23/2016 Pneumococcal, Unspecified 05/28/2012 Td, adsorbed 05/02/2003 Tdap 06/30/2015 ZOSTER LIVE 07/28/2014 Surgical History Surgery Date Site/Laterality Comments [place] ARTHRP KNE CONDYLE&PLATU MEDIAL&LAT COMPARTMENTS 07/06/2020 Left [facility] KNEE ARTHROSCOPY 08/28/2012 - 08/27/2013 Left meniscectomy [...] on file 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 Advance Directives For more information, please contact: [phone] Documents on File Type Date Recorded Patient Chemic Mangler Expl anation Power of Medical Billing Manager 01/21/2022 5:39 AM Care Teams Mucking Machine Operator Relationship Specialty Start Date End Date Emre Garrido MD [address] [place] [address] PCP - General Internal Medicine 07/21/21
--- OUTSIDE RECORDS SUMMARY | 2024-11-13 10:00 | XMS_ITS | Clinical Summary ---
Author Organization [facility] Address [address] [facility] [place] [address] Care Team Providers Care Assistant Kitchen Manager Name Role Phone Unavailable Primary Care Provider Unavailabl e Source Comments [facility],non-owned Affiliates and Associated Physician Practices is amultiple site organization consisting of ambulatory clinics and hospital sitesin [place], [place], [place] and [place]. This disclosure is being madepursuant to the Care Everywhere program and may not contain all information available regarding this patient. Last updated 18.[facility] Social History Tobacco Use Types Packs/Day Years [...]
--- OUTSIDE RECORDS SUMMARY | 2024-11-13 10:00 | XMS_ITS | Encounter Summary ---
Author Organization [facility] Address [address] [place] [address] Care Team Providers Care Airport Operations Specialist Name Role Phone Unavailable Primary Care Provider Unavailabl e Encounter Details Date Type Department Care Team (Late st Contact Info) Description 04/22/2021 Lab Requisition [facility] [address] [place] [id number] Yehuda Haas MD [address] [place] [address] Social History Tobacco Use Types [...] AM CDT) Case Report Dermatopathology Report Case: [id number] Authorizing Provider: Yehuda Haas MD Collected: 04/21/2021 12:00 AM Ordering Location: [facility] Received: 04/22/2021 11:11 AM [...] characteristic determined by the Dermatopathology Laboratory at [facility], directed by Dr. Denisse Munroe. These tests need not be, and therefore are not, approved by the [place] Food and Drug Administration. The tests are used for clinical purposes. Billing Codes Specimen Charges Stain Charges 55564 76772 1 1 1 2:57 PM CDT DERMATOPATHOLOGY LABORATORY Embedded Images 1 2:57 PM CDT DERMATOPATHOLOGY LABORATORY Pathology/Cytology TISSUE SPECIMEN FROM SKIN / Unknown 04/21/2021 04/22/2021 11:11 AM CDT Miscellaneous samples (specimen) TISSUE SPECIMEN FROM SKIN / Unknown 04/21/2021 04/22/2021 11:11 AM CDT Yehuda Haas MD LAB - PATHOLOGY/CYTO LOGY ORDERABLES DERMATOPATHOLOGY LABORATORY [facility] - Department of [facility] [facility], 3rd Floor [address] [phone] documented in this encounter Visit Diagnoses Not on filedocumented in this encounter
== END 2024-11-13 09:09 | disposition home or self-care (01) ==
PROVIDERS: PCP Internal Medicine; Visit Provider Internal Medicine
DX: R05.9 Cough, unspecified (principal); J18.9 Pneumonia, unspecified organism
CPT/HCPCS: 71046

== ENCOUNTER 2025-01-22 07:05 | Outpatient (CLI) | payer MEDICARE, SELFPAY ==
--- OUTSIDE RECORDS SUMMARY | 2025-01-22 07:10 | XMS_ITS | Encounter Summary ---
Author Organization [facility] Address [address] [facility] [place] [address] Care Team Providers Care Radio Mechanic Name Role Phone Unavailable Primary Care Provider Unavailabl e Encounter Details Date Type Department Care Team (Late st Contact Info) Description 04/22/2021 Lab Requisition [facility] [address] [facility], [place] [id number] Yehuda Haas MD [address] [place] [address] Social History Tobacco Use Types Packs/Day Years Used Date Smoking Tobacco: Never Assessed Comments Unknown Sex and Gender Information Value Date Recorded Sex Assigned at Not on file Legal Sex Female 10:48 AM CDT Gender Identity Not on file Sexual Orientation Not on file documented as of this encounter Plan of Treatment Not on file documented as of this encounter Procedures Procedure Name Priority Date/Time Associated Diagnosis Comments DERMATOPATHOLOGY Routine 04/21/2021 12:0 0 AM CDT documented in this encounter Results * DERMATOPATHOLOGY (04/21/2021 12:00 AM CDT) Case Report Dermatopathology Report Case: [id number] Authorizing Provider: Yehuda Haas MD Collected: 04/21/2021 12:00 AM Ordering Location: [facility] Received: 04/22/2021 11:11 AM Pathologist: Sanjiv Munroe MD Specimens: A) - Skin, left lower melolabial fold B) - Skin, left latreal chin crease 2:57 PM CDT DERMATOPATHOLOGY LABORATORY Final Diagnosis Specimen A. SKIN, left lower melolabial fold: MILIUM (L72.8) Specimen B. SKIN, left latreal chin crease: MILIUM (L72.8) 1 2:57 PM CDT DERMATOPATHOLOGY LABORATORY at 1456 CDT Clinical History A-B: R/O BCC 1 2:57 [...] characteristic determined by the Dermatopathology Laboratory at [facility], directed by Dr. Denisse Munroe. These tests need not be, and therefore are not, approved by the [place] Food and Drug Administration. The tests are used for clinical purposes. Billing Codes Specimen Charges Stain Charges 17756 25157 1 1 1 2:57 PM CDT DERMATOPATHOLOGY LABORATORY Embedded Images 2:57 PM CDT DERMATOPATHOLOGY LABORATORY Pathology/Cytology TISSUE SPECIMEN FROM SKIN / Unknown 04/21/2021 04/22/2021 11:11 AM CDT Miscellaneous samples (specimen) TISSUE SPECIMEN FROM SKIN / Unknown 04/21/2021 04/22/2021 11:11 AM CDT Yehuda Haas MD LAB - PATHOLOGY/CYTOLOGY ORD ERABLES Final Result DERMATOPATHOLOGY LABORATORY [facility] - Department of Dermatology [facility] [address] [place] [address], [address] [phone] documented in this encounter Visit Diagnoses Not on filedocumented in this encounter
--- OUTSIDE RECORDS SUMMARY | 2025-01-22 07:10 | XMS_ITS | Clinical Summary ---
Author Organization [facility] Address [address] [place] [address] Care Team Providers Care Drug Abuse Treatment Specialist Name Role Phone Emre Garrido MD Primary Care Provider [phone] Allergies Active Allergy Reactions Criticality Noted Date [...] 1 tablet (100 mcg total) by mouth bottler before breakfast 2 Active omega-3 fatty acids-fish [...] (01/03/2022): Added automatically from request for surgery [id number] Immunizations Immunization Administration Dates Next Due Influenza, Quad, Adjuvantate d, Intramuscular 06/10/2021 Influenza, Quadrivalent, Spl it, Preservative Free, Intramuscular 06/08/2020 Influenza, Unspecified 06/19/2014,06/20/2013,08/2011 Pneumococcal Conjugate PCV 13 09/23/2016 Pneumococcal, Unspecified 05/28/2012 Td, adsorbed 05/02/2003 Tdap 06/30/2015 ZOSTER LIVE 07/28/2014 Surgical History Surgery Date Site/Laterality Comments [place] ARTHRP KNE CONDYLE&PLATU MEDIAL&LAT COMPARTMENTS 07/06/2020 Left [facility] KNEE ARTHROSCOPY 08/28/2012 - 08/27/2013 Left [...] on file 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 Gender Identity Not on file Sexual Orientation [...] 5:13 AM CDT Height 157.5 cm (5' 2) 01/21/2022 5:13 AM CDT Body Mass Index 21.91 01/21/2022 5:13 AM CDT Plan of Treatment Health Maintenance Due Date Last Done Comments Depression Screening 1940 Osteoporosis Screening-Bone Density Scan 1942 Hepatitis B Screening 1960 Well Visit 65+ 2007 Zoster Vaccine (1 of 2) 09/22/2014 07/28/2014 Pneumococcal vaccine 65+ (2 of 2 - PPSV23) 11/18/2016 09/23/2016, 05/28/2012 Fall Risk Assessment 01/21/2023 01/21/2022 Covid-19 Vaccine (2023- 5 season) 2024 12/03/2021, 06/21/2021, 11/13/2020, Additional history exists Influenza Vaccine (Season Ended) 2025 06/10/2021, 06/08/2020, 06/19/2014, Additional history exists DTaP/Tdap/Td Vaccine (2 - Td or Tdap) 06/30/2025 06/30/2015, 05/02/2003 [facility] [place] [address] MEDICARE RAILROAD [facility] Advance Directives For more information, please contact: [phone] Documents on File Type Date Recorded Patient Engine Builder Expl anation Power of Rn Urgent Care 01/21/2022 5:39 AM Care Teams Drug Abuse Treatment Specialist Relationship Specialty Start Date End Date Emre Garrido MD [address] [place] [address] PCP - General Internal Medicine 07/21/21
--- OUTSIDE RECORDS SUMMARY | 2025-01-22 07:10 | XMS_ITS | Continuity of Care Document ---
Author Organization [facility] Address [address] [place] [address] Phone Care Team Providers Care Crushing Foreman Name Role Phone [facility] Unavailable Unavail able Sickage, Luna Unavailable Unavailable Procedures Procedure Date BF Polycarb Sphcyl [place] To +/-4d .12-2d Frame - Up To [...] Diagnoses Date Provider Providers Copied on Encounter [facility], [address] [place] [address] [address], [place], [place], [address], [place] tel:[phone] [facility] No Information 2-201 0 [facility] . [address] [facility], [address], [place], [place], [address], [place]. tel:[phone] Referring Provider: Beto Romero, [address], [place], [place], [facility]. tel:[phone] sulting Provider: Luna Copeland, [address] [facility], [place], [facility]. tel:[phone] Office/outpat ient Visit, Est [facility], [address], [place], [place], [address], [place] tel:[phone] [facility] No Information 5-201 0 Zakia Pérez. [address] , [address], [place], [facility], [place]. tel:[phone] [facility], [address], [place], [place], [address], [place] tel:[phone] [facility] No Information 3 1-200 9 Zakia Pérez. [facility] , [address], [place], [facility], [place]. tel:[phone] [facility], [address] [place] [address] [address], [place], [place], [address], [place] tel:[phone] [facility] No Information 0-200 9 Zakia Pérez. [address] , [address], [place], [facility], [place]. tel:[phone] Referring Provider: Beto Romero, [address], [place], [address]. tel:[phone] [facility], [address] [place] [address] [address], [place], [place], [address], [place] tel:[phone] [facility] No Information 1 6-200 9 Zakia Pérez. [address] , [address], [place], [facility], [place]. tel:[phone] Referring Provider: Gabrielle Condon [address], [place], [address]. tel:[phone] [facility], [address], [place], [place], [address], [place] tel:[phone] [facility] No Information Apr-0 9-200 9 Adrien Tao. [address] [facility], [place], [facility], [place]. tel:[phone] Referring Provider: Beto Romero, [address], [place], [facility]. tel:[phone] [facility], [address] [place] [address] [address], [place], [place], [address], tel:[phone] [facility] No Information Apr-0 6-200 9 Zakia Pérez. [address] Villagranate [address], [address], [place], [facility], [place]. tel:[phone] Referring Provider: Beto Romero, [address], [place], [facility]. tel:[phone] Office/outpat ient Visit, [facility], [address], [place], [place], [address], [place] tel:[phone] [facility] No Information Mar-0 9-200 9 Zakia Pérez. [address], [address], [place], [facility], [place]. tel:[phone] Referring Provider: Gabrielle Condon [address], [place], [facility]. tel:[phone] [facility], [address], [place], [place], [address], [place] tel:[phone] [facility] No Information Donnie-2 4-200 8 Zakia Pérez. [address], [address], [place], [address], [place]. tel:[phone] Referring Provider: Beto Romero, [address] [facility] [address], [place], [address]. tel:[phone] [facility], [address], [place], [place], [address], [place] tel:[phone] [facility] No Information Jan-2 0-200 7 Zakia Pérez. [address] [facility] , [address], [place], [address], [place]. tel:[phone] Family History Family Member Type Diagnosis Age [...]
--- OUTSIDE RECORDS SUMMARY | 2025-01-22 07:10 | XMS_ITS | Clinical Summary ---
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 Gender Identity Not on file Sexual Orientation Not on file Last Filed Vital Signs Vital Sign Reading Time Taken Comments Blood Pressure 102/58 05/07/2009 12:43 PM CDT Pulse - - Temperature - - Respiratory Rate - - Oxygen Saturation - - Inhaled Oxygen Concentration - - Weight 54.4 kg (120 lb) 05/07/2009 12:43 PM CDT Height 160 cm (5' 3) 05/07/2009 12:43 PM CDT Body Mass Index [...] series) 2017 INFLUENZA VACCINE (#1) [address] [place] [address] MEDICARE RA[address]ROAD Care Teams Risk Adjustment Specialist Relationship Specialty Start Date End Date Emre Garrido MD PCP - General 05/07/09
--- OUTSIDE RECORDS SUMMARY | 2025-01-22 07:10 | XMS_ITS | Referral Summary ---
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 Gender Identity Not on file Sexual Orientation [...] Treatment Not on file Insurance MEDICARE RAILROAD [facility] MEDICARE RAILROAD [facility] Advance Directives For more information, please contact: [phone] Documents on File Type Date Recorded Patient Mammography Technologist Expl anation Power of Payroll Examiner 01/21/2022 5:39 AM Care Teams Tail Trimmer Relationship Specialty Start Date End Date Emre Garrido MD [address] [address] [facility] [address] [place] [address] PCP - General Internal Medicine 07/21/21
--- OUTSIDE RECORDS SUMMARY | 2025-01-22 07:10 | XMS_ITS | Clinical Summary ---
Author Organization [facility] Address [address] [facility] [place] [address] Care Team Providers Care Structural Designer Name Role Phone Unavailable Primary Care Provider Unavailabl e Source Comments [facility] [employer],non-owned Affiliates and Associated Physician Practices is amultiple site organization consisting of ambulatory clinics and hospital sitesin [place], [place], [place] and [place]. This disclosure is being madepursuant to the Care Everywhere program and may not contain all information available regarding this patient. Last updated 18.[facility] [employer] Social History Tobacco Use Types Packs/Day Years Used Date Smoking Tobacco: Never Assessed Comments Unknown Sex and Gender Information Value Date Recorded Sex Assigned at Not on file Legal Sex Female 10:48 AM CDT Gender Identity Not on file Sexual Orientation Not on file Plan of Treatment Health Maintenance Due Date Last Done Comments BONE DENSITY TESTING 1942 DTAP/TDAP/TD VACCINES (1 - Tdap) 1961 PNEUMOCOCCAL VACCINE 50+ (1 of 1 - PCV) 1992 ZOSTER VACCINE (1 of 2) 1992 Respiratory Syncytial Virus (RSV) Vaccine Pt: or over 60 yrs (1 - 1-dose 75+ series) 2017 COVID-19 VACCINE ( - 2023-2 5 season) 2024 DEPRESSION SCREENING 08/28/2024 INFLUENZA VACCINE (Season Ended) 2025 HEPATITIS B VACCINE Aged Out No longe [...] on patient's age to complete this topic Insurance MEDICARE [facility] [place] [facility] Address: [address] [place] [address]
[2025-01-22 07:47] LABS: Basophils Percent Auto 0.9 % (0.2-1.2); Eosinophils Absolute Auto 0.1 K/mm3 (0-0.3); Hematocrit 36.7 % (37.0-47.0); Immature Granulocyte Absolute 0.01 K/mm3 (0.00-0.031); Immature Granulocyte Percent A 0.2 % (0-0.5); Lymphocytes Absolute Auto 1.55 K/mm3 (0.9-3.2); Lymphocytes Percent Auto 35.1 % (18.3-44.2); Mean Corpuscular HGB Conc 32.7 g/dl (32-36); Mean Corpuscular Hemoglobin 30.5 pg (26-34); Mean Corpuscular Volume 93.1 fl (80-100); Mean Platelet Volume 9.2 fl (7.4-10.4); Monocytes Absolute Auto 0.4 K/mm3 (0.1-0.6); Monocytes Percent Auto 9.3 % (2.6-8.5); Neutrophils Absolute Auto 2.3 K/mm3 (1.3-6.7); Neutrophils Percent Auto 52.5 % (45.5-73.1); Platelet Count Result 156 k/mm3 (150-375); Red Blood Count 3.94 M/mm3 (4.2-5.4); Red Cell Distribution Width 13.3 % (11.5-14.5); White Blood Count 4.4 K/mm3 (4.5-10.0)
[2025-01-22 07:48] LABS: Add Urine Microscopic? NO; Appearance Urine Clear (Clear); Bilirubin Urine Negative (Negative); Blood Urine Negative (Negative); Color Urine Yellow (Yellow); Glucose Urine UA Negative (Negative); Ketones Urine Negative (Negative); Leukocyte Esterase Ur Negative LEU/UL (Negative); Nitrate Urine Negative (Negative); Protein Urine Negative (Negative); Specific Grav Ur 1.012 (1.001-1.035); Urobilinogen Urine 0.2 mg/dL (<2.0)
[2025-01-22 08:01] LABS: Hemoglobin A1C 5.2 % (<5.7)
[2025-01-22 08:05] LABS: Alanine Aminotransferase 14 U/L (6-35); Albumin Level 4.4 g/dL (3.5-5.1); Alkaline Phosphatase 45 U/L (38-126); Anion Gap 4 mmol/L (4-12); Aspartate Amino Transferase 28 U/L (14-36); Bilirubin,Total 0.4 mg/dL (0.2-1.3); Blood Urea Nitrogen 14 mg/dL (7-17); Calcium 9.6 mg/dL (8.4-10.2); Carbon Dioxide 29 mmol/L (22-30); Chloride 105 mmol/L (98-107); Cholesterol 191 mg/dL (0-200); Estimated Glomerular Filt Rate > 60; Glucose 103 mg/dL (65-110); HDL Direct 86 mg/dL; Sodium 138 mmol/L (137-145); Triglycerides 136 mg/dL (<150)
[2025-01-22 08:16] LABS: LDL Cholesterol Direct 57 mg/dL
[2025-01-22 09:35] LABS: Free T4 Free Thyroxine 1.48 ng/dL (0.78-2.19); Vitamin D 25 Hydroxy 52.2 ng/mL
== END 2025-01-22 07:06 | disposition home or self-care (01) ==
PROVIDERS: PCP Internal Medicine; Visit Provider Internal Medicine
DX: E03.9 Hypothyroidism, unspecified (principal); E78.2 Mixed hyperlipidemia; I10 Essential (primary) hypertension; Z79.899 Other long term (current) drug therapy; D70.9 Neutropenia, unspecified; Z13.1 Encounter for screening for diabetes mellitus; E55.9 Vitamin D deficiency, unspecified
CPT/HCPCS: 36415; 80053; 80061; 81003; 82306; 83036; 84439; 84443; 85025

== ENCOUNTER 2025-01-29 13:46 | Outpatient (CLI) | payer MEDICARE, SELFPAY ==
--- NOTE | ~2025-01-29 | XR_ITS ---
XR hip LT min 2V 01/29/2025 14:15 Indication: Left hip pain Procedure: 2 views left hip Comparison: No prior studies for comparison. Findings: No fracture, subluxation or dislocation. There is lower lumbar spondylosis. No significant joint space narrowing. No focal soft tissue abnormality. No foreign bodies. Impression: 1: No acute bone or joint abnormality. Reviewed, dictated and finalized at location A. Impression: 1: No acute bone or joint abnormality.
--- NOTE | ~2025-01-29 | XR_ITS ---
3 VIEWS LUMBAR SPINE Ordering provider: Emre Garrido MD History: . M54.50 - Low back pain, unspecified . Comparison: None. FINDINGS: VERTEBRAL BODIES: No visible fracture or subluxation. Degenerative changes of the spine. DISK SPACES: Narrowing of the disc L4-L5 and L5-S1. SOFT TISSUES: Atherosclerotic changes of the aorta. IMPRESSION: No acute osseous abnormality lumbar spine. Multilevel degenerative disc disease. Reviewed, dictated and finalized at location A.
--- OUTSIDE RECORDS SUMMARY | 2025-01-29 13:57 | XMS_ITS | Encounter Summary ---
Author Organization [facility] Address [address] [facility] [place] [address] Care Team Providers Care Substation Mechanic Name Role Phone Unavailable Primary Care Provider Unavailabl e Encounter Details Date Type Department Care Team (Late st Contact Info) Description 04/22/2021 Lab Requisition [facility] DermPath Lab [address] [facility], [place] [id number] Yehuda Haas MD [address] [place] [address] Social History Tobacco Use Types [...] AM CDT) Case Report Dermatopathology Report Case: [id number] Authorizing Provider: Yehuda Haas MD Collected: 04/21/2021 12:00 AM Ordering Location: [facility] DermPath Lab Received: 04/22/2021 11:11 AM Pathologist: [...] characteristic determined by the Dermatopathology Laboratory at [facility], directed by Dr. Denisse Munroe. These tests need not be, and therefore are not, approved by the [place] Food and Drug Administration. The tests are used for clinical purposes. Billing Codes Specimen Charges Stain Charges 58246 [id number] 1 1 1 2:57 PM CDT DERMATOPATHOLOGY LABORATORY Embedded Images 2:57 PM CDT DERMATOPATHOLOGY LABORATORY Pathology/Cytology TISSUE SPECIMEN FROM SKIN / Unknown 04/21/2021 04/22/2021 11:11 AM CDT Miscellaneous samples (specimen) TISSUE SPECIMEN FROM SKIN / Unknown 04/21/2021 04/22/2021 11:11 AM CDT Yehuda Haas MD LAB - PATHOLOGY/CYTOLOGY ORD ERABLES Final Result DERMATOPATHOLOGY LABORATORY [facility] - Department of Dermatology [facility] Medicine [address] [place] [address], [address]rd Floor [address] [phone] documented in this encounter Visit Diagnoses Not on filedocumented in this encounter
--- OUTSIDE RECORDS SUMMARY | 2025-01-29 13:57 | XMS_ITS | Clinical Summary ---
Author Organization [facility] Address [address] [facility] [place] [address] Care Team Providers Care Maintenance Parts Technician Name Role Phone Unavailable Primary Care Provider Unavailabl e Source Comments [facility],non-owned Affiliates and Associated Physician Practices is amultiple site organization consisting of ambulatory clinics and hospital sitesin [place], [place], [place] and [place]. This disclosure is being madepursuant to the Care Everywhere program and may not contain all information available regarding this patient. Last updated 18.[facility] Social History Tobacco Use Types Packs/Day Years [...] age to complete this topic Insurance MEDICARE [facility]
--- OUTSIDE RECORDS SUMMARY | 2025-01-29 13:57 | XMS_ITS | Clinical Summary ---
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
--- OUTSIDE RECORDS SUMMARY | 2025-01-29 13:57 | XMS_ITS | Continuity of Care Document ---
Author Organization [facility] Address [address] [place] [address] Phone Care Team Providers Care Roto Gravure Press Operator Name Role Phone [facility] Unavailable Unavail able Sickage, Luna Unavailable Unavailable Procedures Procedure Date BF Polycarb Sphcyl Grant To +/-4d .12-2d Frame - Up To [...] Diagnoses Date Provider Providers Copied on Encounter [facility], [address] [place] [address] [address], [place], [place], [address], [place] tel:[phone] [facility] No Information 2-201 0 [facility] . [address], [address], [place], [place], [address], [place]. tel:[phone] Referring Provider: Beto Romero, [address], [place], [place], [facility]. tel:[phone] sulting Provider: Luna Copeland, [address] [facility], [place], [facility]. tel:[phone] Office/outpat ient Visit, [facility], [address], [place], [place], [address], [place] tel:[phone] [facility] No Information 5-201 0 Zakia Pérez. [address] , [address], [place], [place], [facility], [place]. tel:[phone] [facility], [address], [place], [place], [address], [place] tel:[phone] [facility] No Information 3 1-200 9 Zakia Pérez. [facility] , [address], [place], [place], [facility], [place]. tel:[phone] [facility], [address] [place] [address] [address], [place], [place], [address], [place] tel:[phone] [facility] No Information 0-200 9 Zakia Pérez. [address] , [address], [place], [place], [facility], [place]. tel:[phone] Referring Provider: Beto Romero, [address], [place], [address]. tel:[phone] [facility], [address] [place] [address] [address], [place], [place], [address], [place] tel:[phone] [facility] No Information 1 6-200 9 Zakia Pérez. [address] , [address], [place], [facility], [place]. tel:[phone] Referring Provider: Gabrielle Condon [address], [place], [address]. tel:[phone] [facility], [address], [place], [place], [address], [place] tel:[phone] [facility] No Information Apr-0 9-200 9 Adrien Tao. [address] [facility], [place], [facility], [place]. tel:[phone] Referring Provider: Beto Romero, [address], [place], [facility]. tel:[phone] [facility], [address] [place] [address] [address], [place], [place], [address], tel:[phone] [facility] No Information Apr-0 6-200 9 Zakia Pérez. [address] Vill[address], [address], [place], [facility], [place]. tel:[phone] Referring Provider: Beto Romero, [address], [place], [facility]. tel:[phone] Office/outpat ient Visit, [facility], [address], [place], [place], [address], [place] tel:[phone] [facility] No Information Mar-0 9-200 9 Zakia Pérez. [address], [address], [place], [facility], [place]. tel:[phone] Referring Provider: Gabrielle Condon [address], [place], [facility]. tel:[phone] [facility], [address], [place], [place], [address], [place] tel:[phone] [facility] No Information Donnie-2 4-200 8 Zakia Pérez. [address], [address], [place], [address], [place]. tel:[phone] Referring Provider: Beto Romero, [address] [facility] [address], [place], [address]. tel:[phone] [facility], [address], [place], [place], [address], [place] tel:[phone] [facility] No Information Jan-2 0-200 7 Zakia Pérez. [address] [facility] , [address], [place], [address], [place]. tel:[phone] Family History Family Member Type Diagnosis Age [...]
--- OUTSIDE RECORDS SUMMARY | 2025-01-29 13:58 | XMS_ITS | Referral Summary ---
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
--- OUTSIDE RECORDS SUMMARY | 2025-01-29 13:58 | XMS_ITS | Clinical Summary ---
Author Organization [facility] Address [address] [place] [address] Care Team Providers Care Artificial Snow Making Machine Operator Name Role Phone Emre Garrido MD Primary Care Provider [phone] Allergies Active Allergy Reactions Criticality Noted Date [...] 1 tablet (100 mcg total) by mouth fresh meat grader before breakfast 2 Active omega-3 fatty acids-fish [...] (01/03/2022): Added automatically from request for surgery [id number] Immunizations Immunization Administration Dates Next Due Influenza, Quad, Adjuvantate d, Intramuscular 06/10/2021 Influenza, Quadrivalent, Spl it, Preservative Free, Intramuscular 06/08/2020 Influenza, Unspecified 06/19/2014,06/20/2013,08/2011 Pneumococcal Conjugate PCV 13 09/23/2016 Pneumococcal, Unspecified 05/28/2012 Td, adsorbed 05/02/2003 Tdap 06/30/2015 ZOSTER LIVE 07/28/2014 Surgical History Surgery Date Site/Laterality Comments [place] ARTHRP KNE CONDYLE&PLATU MEDIAL&LAT COMPARTMENTS 07/06/2020 Left [facility] KNEE ARTHROSCOPY 08/28/2012 - 08/27/2013 Left [...] on file 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 Gender Identity Not on file Sexual [...] or Tdap) 06/30/2025 06/30/2015, 05/02/2003 [facility] [place] [address] MEDICARE RAILROAD [facility] Advance Directives For more information, please contact: [phone] Documents on File Type Date Recorded Patient Reaming Press Operator Expl anation Power of Display Maker 01/21/2022 5:39 AM Care Teams Artificial Snow Making Machine Operator Relationship Specialty Start Date End Date Emre Garrido MD [address] [facility] [address] [place] [address] PCP - General Internal Medicine 07/21/21
== END 2025-01-29 13:47 | disposition home or self-care (01) ==
PROVIDERS: PCP Internal Medicine; Visit Provider Internal Medicine
DX: M25.552 Pain in left hip (principal); M51.369 Other intervertebral disc degeneration, lumbar region without mention of lumbar back pain or lower extremity pain
CPT/HCPCS: 72100; 73502

== ENCOUNTER 2025-03-21 13:30 | Outpatient (RCR) | payer MEDICARE, SELFPAY ==
--- NOTE | 2025-02-17 10:51 | OPREHPOC ---
Outpatient Therapy Plan of Care This is a Multidisciplinary Plan of Care that may contain components documented by all disciplines (PT, OT, and ST.) PT Problem 1 PT Problem #1 Knowledge Deficit PT Goal 1 Goal / Goal Update Patient to demonstrate independence with HEP for improved self-reliance of symptom management Target Visit 4 PT Problem 2 PT Problem #2 Pain PT Goal 1 Goal / Goal Update Patient to decrease subjective reports of pain to <2/10 with prolonged walking for improved ADL tolerance Target Visit 8 PT Problem 3 PT Problem #3 Impaired Gait PT Goal 1 Goal / Goal Update Patient to improve gait mechanics and stair negotiation to no noted deficit and reciprocal pattern for improved community navigation. Target Visit 8 PT Problem 4 PT Problem #4 Impaired Strength PT Goal 1 Goal / Goal Update Patient to demonstrate L hip strength >=4+/5 for improved functional stability required for ADLs. Target Visit 8
--- NOTE | 2025-02-17 10:51 | PTOPEVAL1 ---
Assessment and note entered by Marylu Kauffman, PT Evaluation Information Assessment Status Evaluation ICD-10 Condition Codes (PT) Pain in left hip M25.552 Onset 6 months Subjective Information Pt reports her L hip has been bothering her over the course of the last 6 months. She denies progressive changes but it hurts some days more than others. Some day she feels the deep ache in the back when she is walking, or doing a lot of stairs. She notes when she went to the doctor the pain started in her hip and ached all the way down to her ankle. She notes the pain starts immediately when she starts walking on the days she does have pain. As soon as she stops doing what she is doing it stops. She had a difficult TKA on the L and never regained full mobility. Reported Pain Level Pain Score 2: Self Report Assessment PT Clinical Summary Pt is a 84 year old female who presents to physical therapy with a primary complaint of insidious onset of L hip pain over 6 months ago. Pt demonstrates Raul hip and knee weakness, pain with ambulation, decreased hip and knee mobility, gait deficit, and decreased flexibility that limit their ability to perform ADLs. The patients gait deficits can be explained by her continued limitations in knee ROM post TKA that affect her locomotion. Pt will benefit from skilled physical therapy to address the above listed deficits and return to PLOF. HEP instructed and written handout provided, EX tolerated well with no adverse effects to note post-session. Pt was educated on importance of adherence to HEP. Pt was also educated on anatomy, prognosis, home modalities, and PT POC Plan of Care Interventions Gait Training,Hot Pack/Cold Pack,Manual Therapy, Neuro Re-education,Therapeutic Activities, Therapeutic Exercise PT Services Indicated Yes Treatment Frequency and 2x/wk for 8 sessions Duration These treatments will address the objective and functional deficits as defined above. The patient will be advanced safely and appropriately in order for the patient to progress towards his/her prior level of function. Additional exercises will be introduced and as well as a comprehensive home exercise program upon discharge, if needed, ?to ensure carryover of functional gains achieved in the clinic. This treatment plan has been reviewed and agreement upon by the patient.
--- NOTE | 2025-03-21 14:26 | OPREHPOC ---
Outpatient Therapy Plan of Care This is a Multidisciplinary Plan of Care that may contain components documented by all disciplines (PT, OT, and ST.) PT Problem 1 PT Problem #1 Knowledge Deficit PT Goal 1 Goal / Goal Update Patient to demonstrate independence with HEP for improved self-reliance of symptom management 03-21-25 d/c goal met Target Visit 4 Progress Met PT Problem 2 PT Problem #2 Pain PT Goal 1 Goal / Goal Update Patient to decrease subjective reports of pain to <2/10 with prolonged walking for improved ADL tolerance 03-21-25 d/c goal met; no pain with walking on level surface Target Visit 8 Progress Met PT Problem 3 PT Problem #3 Impaired Gait PT Goal 1 Goal / Goal Update Patient to improve gait mechanics and stair negotiation to no noted deficit and reciprocal pattern for improved community navigation. 25 d/c goal partially met---gait pattern is good, but stairs increase pain with full weight on L LE Target Visit 8 Progress Partially Met PT Problem 4 PT Problem #4 Impaired Strength PT Goal 1 Goal / Goal Update Patient to demonstrate L hip strength >=4+/5 for improved functional stability required for ADLs. 25 d/c goal met Target Visit 8
--- NOTE | 2025-03-21 14:26 | PTOPDC ---
Assessment and note entered by Jenna Kemp, PT Assessment Status Discharge ICD-10 Condition Codes (PT) Pain in left hip M25.552 Onset 6 months Subjective Information knee is bending better, have been doing the exercises every day and it keeps my knee moving better; hip still hurts but not as bad, stairs are the worst; do not have pain into the L calf anymore; Reported Pain Level Pain Score Self Report Additional Pain Score Comments pain range in the past week 0-4/10, L lateral hip & quad; no radicular pain into calf any more; increase pain: stairs decrease pain: rest take ibuprofen PRN for back pain; walking does not cause pain; discussed use of kinesiotape and roller to decrease spasm over quads and ITB; also use of heat over quads Assessment PT Clinical Summary Jessica has received 5 PT sessions. With today's assessment: reports pain rating of 0-4/10 in L lateral hip and quad; self assessment with LE functional scale rating of 36% limitation in activity; good strength, 4+/5 in L hip; good gait pattern and step length and education for HEP and pain control with self massage over quad and ITB. Continues to have pain in L lateral hip on stairs, with single step pattern and full weight is on her L LE. And continues to have tenderness and spasms over L mid to distal quad and ITB. The goals were partially achieved. Discharge PT. She is to continue with her HEP and self massage over areas of spasms. Plan of Care PT Services Indicated No
--- NOTE | 2025-03-21 14:27 | PCPTNOTE ---
with pt's reassessment/discharge today, she had completed her LE functional scale form incorrectly at the initial evaluation--she rated herself at 2% limitation, that she was able to run, squat...etc. Her d/c functional score was 36%. Reviewed with pt and she stated she misunderstood how to do it.
== END 2025-03-21 15:19 | disposition home or self-care (01) ==
LOC: ANHPT 13:30
PROVIDERS: PCP Internal Medicine; Visit Provider Internal Medicine
DX: M25.552 Pain in left hip (principal)
CPT/HCPCS: 97110; 97116; 97140; 97161; 97530

== ENCOUNTER 2025-06-11 06:57 | Outpatient (CLI) | payer MEDICARE, SELFPAY ==
--- OUTSIDE RECORDS SUMMARY | 2010-01-05 19:00 | XMS_ITS | Continuity of Care Document ---
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 Phone [facility] Unavailable Unavail able Sickage, Luna Unavailable Unavailable Procedures Procedure Date BF Polycarb Sphcyl Largo To +/-4d .12-2d Frame - Up To $160 Tax - Medical Office/outpatient Visit, Est No Charge Glasses Check Eye Exam & Treatment Optic Nerve Head Eval No Script Fundus Photography W/ Report Refraction Visual Field Examination-Professional Ap Eye Exam, New Patient Ophthalmoscopy Visual Field Examination-Technical Office/outpatient Visit, Est Optic Nerve Head Eval No Script Corneal Pachymetry Eye Exam & Treatment Fundus Photography W/ Report Eye Exam & Treatment Refraction Advance Directives Directive Yes / No Effective Date File Name No Information Encounters Encounter Description Practice Location Reason(s) For Visit Diagnoses Date Provider Providers Copied on Encounter [facility], [address] [place] [address] [address], [place], [place], [address], [place] tel:[phone] [facility] No Information 2-201 0 [facility] . [address] [facility], [address], [place], [place], [address], [place]. tel:[phone] Referring Provider: Beto Romero, [address], [place], [place], [facility]. tel:[phone] sulting Provider: Luna Copeland, [address] [facility], [place], [facility]. tel:[phone] Office/outpat ient Visit, Est [facility], [address], [place], [place], [address], [place] tel:[phone] [facility] No Information 5-201 0 Zakia Pérez. [address] , [address], [place], [facility], [place]. tel:[phone] [facility], [address], [place], [place], [address], [place] tel:[phone] [facility] No Information 3 1-200 9 Zakia Pérez. [facility] , [address], [place], [facility], [place]. tel:[phone] [facility], [address] [place] [address] [address], [place], [place], [address], [place] tel:[phone] [facility] No Information 0-200 9 Zakia Pérez. [address] , [address], [place], [facility], [place]. tel:[phone] Referring Provider: Beto Romero, [address], [place], [address]. tel:[phone] [facility], [address] [place] [address] [address], [place], [place], [address], [place] tel:[phone] [facility] No Information 1 6-200 9 Zakia Pérez. [address] , [address], [place], [facility], [place]. tel:[phone] Referring Provider: Gabrielle [address], [place], [address]. tel:[phone] [facility], [address], [place], [place], [address], [place] tel:[phone] [facility] No Information Apr-0 9-200 9 Adrien Tao. [address] [facility], [place], [facility], [place]. tel:[phone] Referring Provider: Beto Romero, [address], [place], [facility]. tel:[phone] [facility], [address] [place] [address] [address], [place], [place], [address], tel:[phone] [facility] No Information Apr-0 6-200 9 Zakia Pérez. [address], [address], [place], [facility], [place]. tel:[phone] Referring Provider: Beto Romero, [address], [place], [facility]. tel:[phone] Office/outpat ient Visit, [facility], [address], [place], [place], [address], [place] tel:[phone] [facility] No Information Mar-0 9-200 9 Zakia Pérez. [address], [address], [place], [facility], [place]. tel:[phone] Referring Provider: Gabrielle Condon [address], [place], [facility]. tel:[phone] [facility], [address], [place], [place], [address], [place] tel:[phone] [facility] No Information Donnie-2 4-200 8 Zakia Pérez. [address], [address], [place], [address], [place]. tel:[phone] Referring Provider: Beto Romero, [address] [facility] [address], [place], [address]. tel:[phone] [facility], [address], [place], [place], [address], [place] tel:[phone] [facility] No Information Jan-2 0-200 7 Zakia Pérez. [address] [facility] [address] , [address], [place], [address], [place]. tel:[phone] Family History Family Member Type Diagnosis Age At Onset No Information Payers Payer name Insurance type Covered constitution party ID Authoriza tion(s) No Information Social History Type Description Quantity Date Captured Comments Sex Female Smoking Status No Information Chief Complaint And Reason For Visit No Information Reason For Referral Reason For Referral No Information History Of Present Illness Encounter Date Complaint History Of Prese nt Illness No Information Functional Status Date Functional Assessmen t No Information Instructions Date Instruction Additional Infor mation No Information Assessments Type Assessment Date No Information Patient Care Teams Name Effective Dates (start - stop) Status Members No Information
--- OUTSIDE RECORDS SUMMARY | 2025-06-11 07:00 | XMS_ITS | Clinical Summary ---
Author Organization [facility] Address [address] [place] [address] Care Team Providers Care Insulation Worker Furnace Installer Name Role Phone Unavailable Primary Care Provider Unavailabl e Source Comments [facility],non-owned Affiliates and Associated Physician Practices is amultiple site organization consisting of ambulatory clinics and hospital sitesin [place], [place], [place] and [place]. This disclosure is being madepursuant to the Care Everywhere program and may not contain all information available regarding this patient. Last updated 18.[facility] Social History Tobacco Use Types Packs/Day Years [...] yrs (1 - 1-dose 75+ series) 2017 DEPRESSION SCREENING 08/28/2024 COVID-19 VACCINE (1 - 2023-2 5 season) 2025 INFLUENZA VACCINE (#1) 2025 HEPATITIS B VACCINE Aged Out No [...] age to complete this [place] [address] [facility]
--- OUTSIDE RECORDS SUMMARY | 2025-06-11 07:00 | XMS_ITS | Encounter Summary ---
Author Organization [facility] Address [address] [facility] [place] [address] Care Team Providers Care Lead Mechanic Name Role Phone Unavailable Primary Care Provider Unavailabl e Encounter Details Date Type Department Care Team (Late st Contact Info) Description 04/22/2021 Lab Requisition [facility] DermPath Lab [address] [facility], [place] [id number] Yehuda Haas MD [address] [place] [address] Social History Tobacco Use Types [...] AM CDT) Case Report Dermatopathology Report Case: [id number] Authorizing Provider: Yehuda Haas MD Collected: 04/21/2021 12:00 AM Ordering Location: [facility] DermPath Lab Received: 04/22/2021 11:11 AM [...] characteristic determined by the Dermatopathology Laboratory at [facility], directed by Dr. Denisse Munroe. These tests need not be, and therefore are not, approved by the [place] Food and Drug Administration. The tests are used for clinical purposes. Billing Codes Specimen Charges Stain Charges 73076 [id number] 1 1 1 2:57 PM CDT DERMATOPATHOLOGY LABORATORY Embedded Images 2:57 PM CDT DERMATOPATHOLOGY LABORATORY Pathology/Cytology TISSUE SPECIMEN FROM SKIN / Unknown 04/21/2021 04/22/2021 11:11 AM CDT Miscellaneous samples (specimen) TISSUE SPECIMEN FROM SKIN / Unknown 04/21/2021 04/22/2021 11:11 AM CDT Yehuda Haas MD LAB - PATHOLOGY/CYTOLOGY ORD ERABLES Final Result DERMATOPATHOLOGY LABORATORY [facility] - Department of Dermatology [facility] Specialized Medicine [address] [place] [address], [address] Floor [address] [phone] documented in this encounter Visit Diagnoses Not on filedocumented in this encounter
--- OUTSIDE RECORDS SUMMARY | 2025-06-11 07:00 | XMS_ITS | Clinical Summary ---
Author Organization [facility] Address [address] [place] [address] Care Team Providers Care Beam Dyer Recessed Vat Name Role Phone Emre Garrido MD Primary [...] 1 tablet (100 mcg total) by mouth director of nursing before breakfast 2 Active omega-3 fatty acids-fish [...] (01/03/2022): Added automatically from request for surgery [id number] Immunizations Immunization Administration Dates Next Due Influenza, Quad, Adjuvantate d, Intramuscular 06/10/2021 Influenza, Quadrivalent, Spl it, Preservative Free, Intramuscular 06/08/2020 Influenza, Unspecified 06/19/2014,06/20/2013,08/2011 Pneumococcal Conjugate PCV 13 09/23/2016 Pneumococcal, Unspecified 05/28/2012 Td, adsorbed 05/02/2003 Tdap 06/30/2015 ZOSTER LIVE 07/28/2014 Surgical History Surgery Date Site/Laterality Comments [place] ARTHRP KNE CONDYLE&PLATU MEDIAL&LAT COMPARTMENTS 07/06/2020 Left [facility] KNEE ARTHROSCOPY 08/28/2012 - 08/27/2013 Left meniscectomy [...] on file 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 Gender Identity Not on file Sexual Orientation [...] Pneumococcal vaccine 65+ (2 of 2 - PPSV23, PCV20, or PCV21) 11/18/2016 09/23/2016, 05/28/2012 Fall Risk Assessment 01/21/2023 01/21/2022 Covid-19 Vaccine (5 - 2024-2 6 season) 2025 12/03/2021, 06/21/2021, 11/13/2020, Additional history exists Influenza Vaccine (#1) 2025 , 06/08/2020, 06/19/2014, Additional history exists DTaP/Tdap/Td Vaccine (2 - Td or Tdap) 06/30/2025 06/30/2015, 05/02/2003 Insurance MEDICARE RAILROAD [employer] Address: [address] [place] [address] [facility] A[facility] Advance Directives For more information, please contact: [phone] Documents on File Type Date Recorded Patient Pull Worker Expl anation Power of Dairy Scientist 01/21/2022 5:39 AM Care Teams Beam Dyer Recessed Vat Relationship Specialty Start Date End Date Emre Garrido MD PCP - General Internal Medicine 07/21/21
--- OUTSIDE RECORDS SUMMARY | 2025-06-11 07:00 | XMS_ITS | Clinical Summary ---
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
[2025-06-11 08:48] LABS: Add Urine Microscopic? NO; Appearance Urine Clear (Clear); Glucose Urine UA Negative (Negative); Leukocyte Esterase Ur Negative LEU/UL (Negative); Nitrate Urine Negative (Negative); Specific Grav Ur 1.009 (1.001-1.035)
[2025-06-11 08:50] LABS: Hematocrit 33.9 % (37.0-47.0); Hemoglobin 11.3 g/dL (12.0-15.0); Immature Granulocyte Percent A 0.4 % (0-0.5); Lymphocytes Absolute Auto 1.58 K/mm3 (0.9-3.2); Mean Corpuscular HGB Conc 33.3 g/dl (32-36); Mean Corpuscular Hemoglobin 30.9 pg (26-34); Mean Corpuscular Volume 92.6 fl (80-100); Nucleated Red Blood Cells Absolute Auto 0.000 K/mm3 (0.0-0.012); Nucleated Red Blood Cells Perc 0.0 % (0.0-0.2); Platelet Count Result 165 k/mm3 (150-375); Red Blood Count 3.66 M/mm3 (4.2-5.4); White Blood Count 4.9 K/mm3 (4.5-10.0)
[2025-06-11 09:24] LABS: Alanine Aminotransferase 14 U/L (6-35); Albumin Level 4.2 g/dL (3.5-5.1); Alkaline Phosphatase 54 U/L (38-126); Anion Gap 7 mmol/L (4-12); Aspartate Amino Transferase 27 U/L (14-36); Bilirubin,Total 0.6 mg/dL (0.2-1.3); Blood Urea Nitrogen 19 mg/dL (7-17); Calcium 9.6 mg/dL (8.4-10.2); Carbon Dioxide 26 mmol/L (22-30); Chloride 100 mmol/L (98-107); Cholesterol 177 mg/dL (0-200); Estimated Glomerular Filt Rate 57; Glucose 91 mg/dL (65-110); HDL Direct 81 mg/dL; Potassium 3.8 mmol/L (3.4-5.0); Sodium 133 mmol/L (137-145); Total Protein 6.8 g/dL (6.3-8.2); Triglycerides 78 mg/dL (<150)
== END 2025-06-11 06:58 | disposition home or self-care (01) ==
PROVIDERS: PCP Internal Medicine; Visit Provider Internal Medicine
DX: E78.2 Mixed hyperlipidemia (principal); I10 Essential (primary) hypertension; Z79.899 Other long term (current) drug therapy
CPT/HCPCS: 36415; 80053; 80061; 81003; 85025

== ENCOUNTER 2025-06-27 09:05 | Outpatient (CLI) | payer MEDICARE, SELFPAY ==
--- OUTSIDE RECORDS SUMMARY | 2010-01-05 19:00 | XMS_ITS | Continuity of Care Document ---
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 [address] [facility], [address], [place], [place], [address], [place]. tel:[phone] Referring Provider: Beto Romero, [address], [place], [place], [facility]. tel:[phone] sulting Provider: Luna Copeland, [address] [facility], [place], [place], [facility]. tel:[phone] Office/outpat ient Visit, Est [facility], [address], [place], [place], [address], [place] tel:[phone] [facility] No Information 5-201 0 Zakia Pérez. [address] , [address], [place], [facility], [place]. tel:[phone] [facility], [address], [place], [place], [address], [place] tel:[phone] [facility] No Information 3 1-200 9 Zakia Pérez. [facility] , [address], [place], [facility], [place]. tel:[phone] [facility], [address] [place] [address] [address], [place], [place], [address], [place] tel:[phone] [facility] No Information 0-200 9 Zakia Pérez. [address] , [address], [place], [facility], [place]. tel:[phone] Referring Provider: Beto Romero, [address], [place], [address]. tel:[phone] [facility], [address] [place] [address] [address], [place], [place], [address], [place] tel:[phone] [facility] No Information 1 6-200 9 Zakia Pérez. [address] , [address], [place], [facility], [place]. tel:[phone] Referring Provider: Gabrielle [address], [place], [address]. tel:[phone] [facility], [address], [place], [place], [address], [place] tel:[phone] [facility] No Information Apr-0 9-200 9 Adrien Tao. [address] [facility], [place], [facility], [place]. tel:[phone] Referring Provider: Beto Romero, [address], [place], [facility]. tel:[phone] [facility], [address] [place] [address] [address], [place], [place], [address], tel:[phone] [facility] No Information Apr-0 6-200 9 Zakia Pérez. [address], [address], [place], [facility], [place]. tel:[phone] Referring Provider: Beto Romero, [address], [place], [facility]. tel:[phone] Office/outpat ient Visit, [facility], [address], [place], [place], [address], [place] tel:[phone] [facility] No Information Mar-0 9-200 9 Zakia Pérez. [address], [address], [place], [facility], [place]. tel:[phone] Referring Provider: Gabrielle C[address], [place], [facility]. tel:[phone] [facility], [address], [place], [place], [address], [place] tel:[phone] [facility] No Information Donnei-2 4-200 8 Zakia Pérez. [address], [address], [place], [address], [place]. tel:[phone] Referring Provider: Beto Romero, [address] [facility] [address], [place], [address]. tel:[phone] [facility], [address], [place], [place], [address], [place] tel:[phone] [facility] No Information Jan-2 0-200 7 Zakia Pérez. [address] [facility] , [address], [place], [address], [place]. tel:[phone] Family History Family Member Type Diagnosis Age At Onset No Information Payers Payer name Insurance type Covered republican ID Authoriza tion(s) No Information Social History [...]
--- NOTE | ~2025-06-27 | XR_ITS ---
EXAMINATION: XR finger 5th LT min 2V, 06/27/2025 9:37 CDT HISTORY: M79.645 - Pain in left finger(s) COMPARISON: No comparisons available. Findings: No acute fracture or malalignment. Moderate degenerative changes of the distal and proximal interphalangeal joints Soft tissues unremarkable. Impression: No acute fracture or malalignment. Reviewed, dictated and finalized at location P. Impression: No acute fracture or malalignment.
--- NOTE | ~2025-06-27 | XR_ITS ---
EXAMINATION: XR hand LT min 3V, 06/27/2025 9:37 CDT HISTORY: M79.645 - Pain in left finger(s) COMPARISON: No comparisons available. Findings: No acute fracture or malalignment. Moderate to severe degenerative changes of the distal and proximal interphalangeal joints as well as the first metacarpal carpal joint with tiny erosions noted. Soft tissues unremarkable. Impression: No acute fracture or malalignment. Reviewed, dictated and finalized at location P. Impression: No acute fracture or malalignment.
--- OUTSIDE RECORDS SUMMARY | 2025-06-27 09:52 | XMS_ITS | Clinical Summary ---
Author Organization [facility] Address [address] [place] [address] Care Team Providers Care Manufacturing Process Engineer Name Role Phone Emre Garrido MD Primary Care Provider [phone] Allergies Active Allergy Reactions Criticality Noted Date [...] 1 tablet (100 mcg total) by mouth professor of early childhood education before breakfast 2 Active omega-3 fatty acids-fish [...] (01/03/2022): Added automatically from request for surgery [id number] Immunizations Immunization Administration Dates Next Due Influenza, Quad, Adjuvantate d, Intramuscular 06/10/2021 Influenza, Quadrivalent, Spl it, Preservative Free, Intramuscular 06/08/2020 Influenza, Unspecified 06/19/2014,06/20/2013,08/2011 Pneumococcal Conjugate PCV 13 09/23/2016 Pneumococcal, Unspecified 05/28/2012 Td, adsorbed 05/02/2003 Tdap 06/30/2015 ZOSTER LIVE 07/28/2014 Surgical History Surgery Date Site/Laterality Comments [place] ARTHRP KNE CONDYLE&PLATU MEDIAL&LAT COMPARTMENTS 07/06/2020 Left [facility] KNEE ARTHROSCOPY 08/28/2012 - 08/27/2013 Left [...] on file 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
--- OUTSIDE RECORDS SUMMARY | 2025-06-27 09:52 | XMS_ITS | Clinical Summary ---
Author Organization [facility] Address [address] [address] Care Team Providers Care Whiting Can Worker Name Role Phone Unavailable Primary Care Provider Unavailabl e Source Comments [facility] [employer],non-owned Affiliates and Associated Physician Practices is amultiple site organization consisting of ambulatory clinics and hospital sitesin [place], [place], [place] and [place]. This disclosure is being madepursuant to the Care Everywhere program and may not contain all information available regarding this patient. Last updated 18.[facility] [employer] Social History Tobacco Use Types Packs/Day Years [...] age to complete this topic Insurance MEDICARE [facility]
--- OUTSIDE RECORDS SUMMARY | 2025-06-27 09:52 | XMS_ITS | Encounter Summary ---
Author Organization [facility] Address [address] [place] [address] Care Team Providers Care Binder Selector Name Role Phone Unavailable Primary Care Provider Unavailabl e Encounter Details Date Type Department Care Team (Late st Contact Info) Description 04/22/2021 Lab Requisition [facility] [address] [place] [id number] Yehuda Haas MD [address] [place] [address] Social History Tobacco Use Types [...] AM CDT) Case Report Dermatopathology Report Case: [id number] Authorizing Provider: Yehuda Haas MD Collected: 04/21/2021 12:00 AM Ordering Location: [facility] Received: 04/22/2021 11:11 AM Pathologist: [...] characteristic determined by the Dermatopathology Laboratory at [facility], directed by Dr. Denisse Munroe. These tests need not be, and therefore are not, approved by the [place] Food and Drug Administration. The tests are used for clinical purposes. Billing Codes Specimen Charges Stain Charges 40649 [id number] 1 1 1 2:57 PM CDT DERMATOPATHOLOGY LABORATORY Embedded Images 2:57 PM CDT DERMATOPATHOLOGY LABORATORY Pathology/Cytology TISSUE SPECIMEN FROM SKIN / Unknown 04/21/2021 04/22/2021 11:11 AM CDT Miscellaneous samples (specimen) TISSUE SPECIMEN FROM SKIN / Unknown 04/21/2021 04/22/2021 11:11 AM CDT Yehuda Haas MD LAB - PATHOLOGY/CYTOLOGY ORD ERABLES Final Result DERMATOPATHOLOGY LABORATORY [facility] - Department of Dermatology [facility] Specialized Medicine [address] [place] [address], [address] [phone] documented in this encounter Visit Diagnoses Not on filedocumented in this encounter
--- OUTSIDE RECORDS SUMMARY | 2025-06-27 09:52 | XMS_ITS | Clinical Summary ---
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
== END 2025-06-27 09:06 | disposition home or self-care (01) ==
PROVIDERS: PCP Internal Medicine; Visit Provider Plastic Surgery
DX: M79.645 Pain in left finger(s) (principal)
CPT/HCPCS: 73130; 73140